=== PATIENT | male | born 1935 | race Caucasian/White ===

== ENCOUNTER 2018-10-08 00:31 | Inpatient (IN) | payer OTHER, MEDICARE ==
[2018-10-08] MEDS ORDERED: Morphine 4 MG/ML VIAL ONE (02:18)
[2018-10-08] MEDS ORDERED: Dextrose 50% Abboject 50 ML SYRINGE SLOW IVP PRN (04:17)
[2018-10-08] MEDS ORDERED: Dextrose 5% in Water 1,000 ML IV PRN (04:17)
[2018-10-08] MEDS ORDERED: traMADol HCl 50 MG TAB PO PRN (04:17)
[2018-10-08] MEDS ORDERED: Ondansetron PF 4 MG/2 ML Vial IVP PRN (04:17)
[2018-10-08] MEDS ORDERED: hydrALAZINE 20 MG/ML VIAL SLOW IVP PRN (04:17)
[2018-10-08] MEDS ORDERED: Sodium Chloride 0.9% 500 ML IV SCH (04:17)
[2018-10-08 04:22] VITALS: BMI 36.0
[2018-10-08] MEDS: Acetaminophen 500 MG TAB PO SCH ×5 (04:50→21:57)
[2018-10-08] MEDS: traMADol HCl 50 MG TAB PO PRN ×2 (04:53→13:07)
[2018-10-08] MEDS ORDERED: Acetaminophen 1,000 MG in Premix Bag 1 BAG IVPB SCH (06:00)
[2018-10-08] MEDS: Sodium Chloride 0.9% 1,000 ML IV SCH ×2 (06:14→21:50)
[2018-10-08] MEDS ORDERED: Morphine 2 MG/ML SYRINGE IVP SCH ×2 (06:30→20:30)
[2018-10-08] MEDS ORDERED: Levothyroxine Sodium 100 MCG TAB PO SCH (06:30)
[2018-10-08 07:06] LABS: #Eosinphils 0.4 thou/uL (0.0-0.7); #Lymphocytes 1.6 thou/uL (1.20-3.40); #Monocytes 1.4 thou/uL (0.11-0.59); #Neutrophils 12.8 thou/uL (1.40-6.50); %Basophils 0.3 % (0.0-1.0); %Eosinophils 2.6 % (0.0-10.0); %Lymphocytes 9.8 % (21.0-51.0); %Monocytes 8.5 % (0.0-10.0); %Neutrophils 78.9 % (42.0-75.0); Hemoglobin 12.1 g/dL (14.0-18.0); Mean Corpuscular HGB CONC 32.7 g/dL (32.0-36.0); Mean Corpuscular Hemoglobin 32.1 pg (27.0-31.0); Mean Corpuscular Volume 98.4 fL (78.0-98.0); Mean Platelet Volume 8.5 fL (7.4-10.4); Platelet Count 136 thou/uL (130-400); RBC Distribution Width 12.3 % (11.5-14.5); Red Blood Cell (RBC) Count 3.76 mill/uL (4.70-6.10); White Blood Cell (WBC) Count 16.2 thou/uL (4.8-10.8)
[2018-10-08 07:08] LABS: Phosphorus 4.9 mg/dL (2.3-4.7)
[2018-10-08 07:11] LABS: Anion Gap 16 mmol/L (10-20); BUN (Urea Nitrogen) 48 mg/dL (8.4-25.7); Calc. Creatinine Clearance 35 mL/min (70-130); Calcium 8.6 mg/dL (7.8-10.44); Carbon Dioxide 29 mmol/L (23-31); Chloride 101 mmol/L (98-107); Estimated GFR-MDRD 25; Glucose 107 mg/dL (83-110); Magnesium 2.9 mg/dL (1.6-2.6); Potassium 4.6 mmol/L (3.5-5.1); Sodium 141 mmol/L (136-145)
[2018-10-08] MEDS ORDERED: Carvedilol 6.25 MG TAB PO SCH ×2 (08:00)
[2018-10-08] MEDS: Budesonide 0.5 MG/2 ML NEB INH SCH ×2 (08:32→18:25)
[2018-10-08] MEDS: Losartan 25 MG TAB PO SCH (08:59)
[2018-10-08] MEDS ORDERED: Amlodipine 10 MG TAB PO SCH (09:00)
[2018-10-08] MEDS ORDERED: Famotidine/PF 20 mg/2ml Vial SLOW IVP SCH (09:00)
[2018-10-08] MEDS ORDERED: Losartan 25 MG TAB PO SCH (09:00)
[2018-10-08] MEDS ORDERED: Citalopram 20 MG TAB PO SCH (09:00)
[2018-10-08] MEDS ORDERED: Furosemide 20 MG TAB PO SCH (09:00)
[2018-10-08] MEDS ORDERED: hydrALAZINE 25 MG TAB PO SCH ×3 (09:00→15:00)
[2018-10-08] MEDS ORDERED: Gabapentin 100 MG CAP PO SCH (09:00)
[2018-10-08] MEDS: Senokot S 8.6-50 MG TAB PO SCH ×2 (09:01→21:50)
[2018-10-08] MEDS: Allopurinol 300 MG TAB PO SCH (09:02)
[2018-10-08] MEDS: Amlodipine 10 MG TAB PO SCH (09:02)
[2018-10-08] MEDS: Cyclobenzaprine 10 MG TAB PO SCH ×2 (09:02→21:50)
[2018-10-08] MEDS: Polyethylene Glycol 3350 17 GM Packet PO SCH (09:03)
--- NOTE | 2018-10-08 13:45 | CON ---
DATE OF CONSULTATION: 10/08/2018 CHIEF COMPLAINT: Left hip pain. CONSULTING SERVICE: Trauma. HISTORY OF PRESENT ILLNESS: Mr. Pfeiffer is an 83-year-old male status post ground level fall sustaining an injury to his left hip. The patient has difficulty ambulating. He states he is a household ambulator, lives with his . He is otherwise without complaint, resting comfortably in bed. PAST MEDICAL HISTORY: The patient's extensive past medical history includes hypertension, COPD, sleep apnea, asthma, diabetes, cholesterol, anxiety, bipolar , reflux, hypothyroidism. PAST SURGICAL HISTORY: Bilateral herniarepair is a child. ALLERGIES: CODEINE. MEDICATIONS: 1. Allopurinol. 2. . 3. Amlodipine. 4. Carvedilol. 5. Citalopram. 6. Hydroxyzine. 7. Losartan. 8. Pantoprazole. 9. Aspirin. 10. Isosorbide dinitrate. 11. Furosemide. 12. Hydralazine. 13. Methocarbamol. 14. Ropinirole. 15. Docusate. 16. Iron. 17. Synthroid. 18. Acetaminophen. SOCIAL HISTORY: He is a nonsmoker, nondrinker, nonalcoholic. Lives in [place] with his . The patient a household ambulator. He is retired. PHYSICAL EXAMINATION: VITAL SIGNS: Most recently last night were 135/63, pulse 62, respiratory rate 22, 98.7. Pain 5 to 8/10. 98 on 3 L of oxygen. GENERAL: Alert and oriented man, no acute distress, resting comfortably in bed. EXTREMITIES: Left lower extremity short and externally rotated. Pain with internal and external rotation. No skin lesions. The patient is able to flex and dorsiflex his toes. Sensation intact distally. He has good capillary refill. Resting comfortably in bed. LABORATORY DATA: The patient has an H and H of 12 and 37, white count of 16, and platelet count of 136. His chemistry shows a creatinine of 2.5 and BUN of 48. 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 IMPRESSION: Left femoral neck subtrochanteric fracture with degenerative changes, left hip. ASSESSMENT AND PLAN: I discussed with the patient that ultimately he needs surgical fixation to allow union of his subtrochanteric femur fracture followed eventually potentially by revision to a total hip arthroplasty once his subtroch is healed. I discussed his femoral neck could collapse over time, which would ultimately also lead to a total hip replacement. I discussed the risks and benefits of the surgery to include pain, scar, bleeding, infection, damage to vital structures, DVT, loss of life or limb. The patient understands. We will await clearance by Trauma to proceed with surgery either today or tomorrow. The patient understands these risks and benefits. He will contact his . Job ID: [id number] MTDD
[2018-10-08] MEDS ORDERED: Furosemide 40 MG TAB PO SCH (21:00)
[2018-10-08] MEDS ORDERED: Carvedilol 25 MG TAB PO SCH (21:00)
--- NOTE | 2018-10-08 21:32 | PRG ---
DATE OF SERVICE: 10/08/2018 SUBJECTIVE: This is an 83-year-old gentleman coming to the emergency room for evaluation of left hip pain after a fall at home. The patient sustained left femoral neck fracture. Orthopedic was consulted and the patient will be taken to OR tomorrow. The patient has been doing good. He developed no fever or shortness of breath. He reports pain is static and worse, just 1 to 2 recently. His pain is 8 to 9 with a little bit movement of his left toe. OBJECTIVE: VITAL SIGNS: Stable. : His urine is adequate. GI: He has not had bowel movements since yesterday. GENERAL: The patient is lying down in bed comfortably and talks in full sentences. LUNGS: Clear bilaterally. HEART: Regular rate and rhythm. ABDOMEN: Soft, nondistended. No rebound. EXTREMITIES: Left hip limited range of motion due to pain. Neurovascular intact x4. ASSESSMENT: 1. Status post mechanical ground level fall. 2. Left femoral neck fracture. 3. History of chronic obstructive pulmonary disease. 4. Cardiovascular disease. 5. Hypothyroid. 6. Hypertension. PLAN: We will schedule tramadol for pain control. Morphine 2 mg one time and continue. The patient will have n.p.o. at midnight. Prepare for surgery tomorrow. Job ID: [id number]
[2018-10-08] MEDS: rOPINIRole HCl 1 MG TAB PO SCH (21:49)
[2018-10-08] MEDS: hydrALAZINE 25 MG TAB PO SCH (21:49)
[2018-10-08] MEDS: Ascorbic Acid 500 mg Chewable Tablet PO SCH (21:49)
[2018-10-08] MEDS: Gabapentin 300 MG CAP PO SCH (21:49)
[2018-10-08] MEDS: traMADol HCl 50 MG TAB PO SCH (21:57)
[2018-10-08] MEDS ORDERED: Acetaminophen 500 MG TAB PO SCH (22:00)
--- NOTE | 2018-10-09 00:23 | HP ---
HISTORY OF PRESENT ILLNESS: Mr. Pfeiffer is an 83-year-old gentleman who comes into the emergency room for evaluation of left hip pain. The patient was transferred from [facility] via EMS. The patient was diagnosed with left femur fracture in [place] and transferred to this ER. Upon arrival, patient awake, alert, GCS 15. Vitals stable. Complained of pain from the left hip. The patient reports he was at home, tried to reach something on the floor and he lost his balance and fell. He denied any loss of consciousness. He did not hit his head. He report did not have any dizziness or headaches at the time. REVIEW OF SYSTEMS: Noncontributory except per HPI. PAST MEDICAL HISTORY: The patient has history of hypertension, COPD, sleep apnea, anxiety, hypothyroid. PAST SURGICAL HISTORY: Hernia repair. ALLERGIES: CODEINE. THE PATIENT REPORTS HIVES AND ITCHING GENERALIZED WHEN USING CODEINE. CURRENT MEDICATIONS: 1. Amlodipine. 2. Allopurinol. 3. Carvedilol. 4. Citalopram. 5. Losartan. 6. Pantoprazole. 7. Aspirin. 8. Nitrate. 9. Furosemide. 10. Hydralazine. 11. Methocarbamol. 12. Ropinirole. 13. Docusate. 14. Iron. 15. Synthroid. 16. Tylenol. SOCIAL HISTORY: The patient lives with his . He is mobilized independently using cane. His living function independently. He denies smoking. He denies drinking. PHYSICAL EXAMINATION: GENERAL: The patient lying down in bed, in no acute distress. GCS 15. HEENT: Atraumatic. No bruising. No open wound. Eyesight is normal. NECK: Trachea midline. CHEST: No bruising. No deformity. No tender to touch. Chest rise equal bilaterally. LUNGS: Clear bilaterally. HEART: Regular rate and rhythm. ABDOMEN: Soft, nondistended. No rebound. EXTREMITIES: No open wound. No bruising. No bleeding. NEUROLOGIC: Intact. Range of motion is limited of the left hip due to pain. NEUROLOGIC: No focal neurology deficits. DIAGNOSES: 1. Status post mechanical ground level fall. 2. Left femoral neck fracture. 3. History of hypothyroidism. 4. Hypertension. 5. Hyperlipidemia. 6. Chronic obstructive pulmonary disease. 7. Sleep apnea. 8. Depression. PLAN: The patient will be admitted to surgical floor for pain management. The patient will be seen by Orthopedics to make decision on his left hip fracture fixation. Initiate DVT gastritis prophylaxis, pulmonary toilet. The patient will have n.p.o. at midnight, prepare for surgery tomorrow. Resume all home medications except aspirin. Initiate CPAP for sleep apnea. Job ID: [id number] MTDD
[2018-10-09] MEDS: Acetaminophen 500 MG TAB PO SCH ×4 (03:38→20:42)
[2018-10-09] MEDS: traMADol HCl 50 MG TAB PO SCH ×2 (03:38→08:36)
[2018-10-09 04:54] LABS: #Basophils 0.1 thou/uL (0.0-0.2); #Eosinphils 0.8 thou/uL (0.0-0.7); #Lymphocytes 1.6 thou/uL (1.20-3.40); #Monocytes 1.3 thou/uL (0.11-0.59); %Basophils 0.4 % (0.0-1.0); %Eosinophils 5.9 % (0.0-10.0); %Lymphocytes 11.6 % (21.0-51.0); %Monocytes 9.7 % (0.0-10.0); %Neutrophils 72.4 % (42.0-75.0); Hemoglobin 10.9 g/dL (14.0-18.0); Mean Corpuscular HGB CONC 33.3 g/dL (32.0-36.0); Mean Corpuscular Hemoglobin 32.8 pg (27.0-31.0); Mean Corpuscular Volume 98.6 fL (78.0-98.0); Mean Platelet Volume 8.4 fL (7.4-10.4); Platelet Count 120 thou/uL (130-400); RBC Distribution Width 12.2 % (11.5-14.5); Red Blood Cell (RBC) Count 3.32 mill/uL (4.70-6.10); White Blood Cell (WBC) Count 13.8 thou/uL (4.8-10.8)
[2018-10-09 05:14] LABS: Phosphorus 4.6 mg/dL (2.3-4.7)
[2018-10-09 05:15] LABS: Anion Gap 15 mmol/L (10-20); BUN (Urea Nitrogen) 62 mg/dL (8.4-25.7); Calc. Creatinine Clearance 33 mL/min (70-130); Calcium 8.3 mg/dL (7.8-10.44); Carbon Dioxide 29 mmol/L (23-31); Chloride 99 mmol/L (98-107); Estimated GFR-MDRD 23; Glucose 103 mg/dL (83-110); Magnesium 2.9 mg/dL (1.6-2.6); Potassium 4.6 mmol/L (3.5-5.1); Sodium 138 mmol/L (136-145)
[2018-10-09] MEDS: Levothyroxine Sodium 100 MCG TAB PO SCH (05:20)
[2018-10-09] MEDS: Budesonide 0.5 MG/2 ML NEB INH SCH ×2 (06:15→18:15)
[2018-10-09] MEDS ORDERED: Sodium Chloride 0.9% 500 ML IV SCH (06:30)
[2018-10-09] MEDS ORDERED: Tranexamic Acid 1,000 MG/10 ML VIAL ONE (07:45)
[2018-10-09] MEDS ORDERED: Sodium Chloride 0.9% 100 ML ONE (07:46)
[2018-10-09] MEDS ORDERED: Fentanyl 100 MCG/2 ML VIAL ONE (08:18)
[2018-10-09] MEDS: Amlodipine 10 MG TAB PO SCH (08:35)
[2018-10-09] MEDS: Ascorbic Acid 500 mg Chewable Tablet PO SCH ×2 (08:35→20:41)
[2018-10-09] MEDS: Allopurinol 300 MG TAB PO SCH (08:35)
[2018-10-09] MEDS: Ferrous Sulfate 325 MG TAB PO SCH (08:35)
[2018-10-09] MEDS: Cyclobenzaprine 10 MG TAB PO SCH ×2 (08:35→20:40)
[2018-10-09] MEDS: Gabapentin 300 MG CAP PO SCH ×2 (08:36→20:38)
[2018-10-09] MEDS: Polyethylene Glycol 3350 17 GM Packet PO SCH (08:36)
[2018-10-09] MEDS: Isosorbide Mononitrate (ER) 30 MG TAB PO SCH (08:36)
[2018-10-09] MEDS: hydrALAZINE 25 MG TAB PO SCH ×3 (08:36→20:38)
[2018-10-09] MEDS: Senokot S 8.6-50 MG TAB PO SCH ×2 (08:36→20:38)
[2018-10-09] MEDS: Losartan 25 MG TAB PO SCH (08:36)
[2018-10-09] MEDS ORDERED: Amlodipine 10 MG TAB PO SCH (09:00)
[2018-10-09] MEDS ORDERED: Allopurinol 300 MG TAB PO SCH (09:00)
[2018-10-09] MEDS ORDERED: Losartan 25 MG TAB PO SCH (09:00)
[2018-10-09] MEDS ORDERED: Citalopram 20 MG TAB PO SCH (09:00)
--- NOTE | 2018-10-09 10:33 | RAD ---
FLUOROSCOPIC VIEW LEFT HIP: Seven views submitted INDICATION: Placement of hardware for fracture fixation. FINDINGS: Intertrochanteric nail placement of the segmentally visualized left femur with additional metallic sc rew placement, proximally. Detail is limited by the intraoperative imaging. IMPRESSION: Intraoperative fracture fixation imaging of the left hip/femur, transfixing patient's previously diag nosed left femoral neck fracture. Transcribed Date/Time: 10/09/2018 10:50 AM
[2018-10-09] MEDS ORDERED: Ondansetron HCl/PF 4 MG/2 ML Vial IVP PRN (11:01)
[2018-10-09] MEDS ORDERED: Promethazine HCl 25 MG/ML VIAL SLOW IVP PRN (11:01)
[2018-10-09] MEDS ORDERED: Promethazine HCl 25 MG/ML VIAL IM PRN (11:01)
[2018-10-09] MEDS ORDERED: traMADol HCl 50 MG TAB PO PRN (14:14)
[2018-10-09] MEDS: CEFAZOLIN 2 GM in Premix Bag 1 BAG IVPB SCH ×2 (14:27→21:39)
[2018-10-09] MEDS ORDERED: ePHEDrine 50 MG/ML VIAL ONE (15:07)
[2018-10-09] MEDS ORDERED: PHENYLEPHRINE-NS 100 MCG/ML 10 ML SYRINGE ONE (15:07)
[2018-10-09] MEDS ORDERED: PROPOFOL 200 MG/20 ML VIAL ONE (15:07)
[2018-10-09] MEDS ORDERED: Succinylcholine Chloride 20 MG/ML 10 ml SYRINGE FS ONE (15:07)
[2018-10-09] MEDS ORDERED: Dexamethasone 20 MG/5 ML VIAL ONE (15:07)
[2018-10-09] MEDS ORDERED: Ondansetron PF 4 MG/2 ML Vial ONE (15:07)
[2018-10-09] MEDS: HumaLOG 300 UNITS/3 ML VIAL SC PRN (16:16)
--- NOTE | 2018-10-09 16:53 | PRG ---
DATE OF SERVICE: 10/09/2018 HISTORY OF PRESENT ILLNESS: The patient is currently on the surgical floor. He is just returned from the operating room, where he underwent open reduction and internal fixation of his left hip fracture. The patient tolerated this procedure well. The patient was able to have lunch and he is tolerating this well. His pain is controlled and we have restarted all of his home medications. OBJECTIVE: VITAL SIGNS: Temperature is 98.4, heart rate 73, blood pressure 131/67, respirations 19, and oxygen saturation 93% on 2L via nasal cannula. GENERAL: The patient is resting comfortably in bed. He is awake and appropriate. He is oriented x3. HEENT: Unremarkable. LUNGS: Scattered rhonchi and scant wheezes, consistent with his chronic COPD. HEART: Regular rate and rhythm. ABDOMEN: Soft and nontender with active bowel sounds. EXTREMITIES: Neurovascularly intact x4. Postop dressing is clean, dry, and intact. LABORATORY FINDINGS: White blood cell count 13.8, hemoglobin 10.9, hematocrit 32.8, and platelets 120. Sodium 138, potassium 4.6, chloride 99, CO2 of 29, BUN 62, creatinine 2.68, and glucose 103. Magnesium 2.9. Phosphorus 4.6. Radiograph today is fluoroscopic view of the left hip shows interoperative fracture fixation, transfixing the patient's previously diagnosed left femoral neck fracture. ASSESSMENT AND PLAN: 1. Status post ground-level fall. 2. Status post open reduction and internal fixation of left femoral neck fracture. 3. [id number] kidney disease. 4. History of diabetes. 5. History of sleep apnea. Plan will be to continue supportive care, pain management, pulmonary toilet, CPAP at night. We have asked the family to obtain his lab results from the [place], which they believe they have at home, to compare his renal function. We resumed his home medications and started aspirin twice a day for chemical VTE prophylaxis. Discussing with the family regarding placement. The family would like the patient go to the swing bed in [place], which is much closer to their home. Job ID: [id number]
[2018-10-09] MEDS: traMADol HCl 50 MG TAB PO PRN (18:11)
[2018-10-09] MEDS: rOPINIRole HCl 1 MG TAB PO SCH (20:37)
[2018-10-09] MEDS: Aspirin 81 mg Enteric Coated Tablet PO SCH (20:38)
[2018-10-09] MEDS: Tamsulosin HCl 0.4 MG CAP PO SCH (20:40)
[2018-10-10] MEDS: Acetaminophen 500 MG TAB PO SCH ×4 (02:57→21:35)
[2018-10-10] MEDS: Levothyroxine Sodium 100 MCG TAB PO SCH (05:55)
[2018-10-10] MEDS: Budesonide 0.5 MG/2 ML NEB INH SCH ×2 (06:21→18:29)
[2018-10-10 07:50] LABS: Chloride 97 mmol/L (98-107); Potassium 4.5 mmol/L (3.5-5.1); Sodium 134 mmol/L (136-145)
[2018-10-10 07:51] LABS: Calcium 7.8 mg/dL (7.8-10.44); Glucose 114 mg/dL (83-110)
[2018-10-10 07:53] LABS: Carbon Dioxide 29 mmol/L (23-31)
[2018-10-10 07:55] LABS: BUN (Urea Nitrogen) 69 mg/dL (8.4-25.7); Calc. Creatinine Clearance 31 mL/min (70-130); Estimated GFR-MDRD 21; Phosphorus 4.9 mg/dL (2.3-4.7)
[2018-10-10] MEDS: hydrALAZINE 25 MG TAB PO SCH ×3 (08:22→22:27)
[2018-10-10] MEDS: Aspirin 81 mg Enteric Coated Tablet PO SCH ×2 (08:23→19:57)
[2018-10-10] MEDS: Isosorbide Mononitrate (ER) 30 MG TAB PO SCH (08:23)
[2018-10-10] MEDS: Senokot S 8.6-50 MG TAB PO SCH ×2 (08:23→19:58)
[2018-10-10] MEDS: Ascorbic Acid 500 mg Chewable Tablet PO SCH ×2 (08:23→19:58)
[2018-10-10] MEDS: Allopurinol 300 MG TAB PO SCH (08:23)
[2018-10-10] MEDS: Gabapentin 300 MG CAP PO SCH ×2 (08:23→19:58)
[2018-10-10] MEDS: Ferrous Sulfate 325 MG TAB PO SCH (08:23)
[2018-10-10] MEDS: Furosemide 40 MG TAB PO SCH (08:23)
[2018-10-10] MEDS: Losartan 25 MG TAB PO SCH (08:24)
[2018-10-10] MEDS: Amlodipine 10 MG TAB PO SCH (08:24)
[2018-10-10] MEDS: Polyethylene Glycol 3350 17 GM Packet PO SCH (08:24)
[2018-10-10] MEDS: Cyclobenzaprine 10 MG TAB PO SCH ×2 (08:24→19:58)
[2018-10-10 08:40] LABS: Anion Gap 13 mmol/L (10-20)
--- NOTE | 2018-10-10 10:14 | PRG ---
DATE OF SERVICE: 10/10/2018 SUBJECTIVE: The patient is hospital day 2 postop day 1, status post ground level fall in which he sustained a left hip fracture. He has undergone open reduction and internal fixation of same. He has tolerated that procedure well. He has had no issues overnight. Today, he is awaiting to work with therapy. He states that his pain is controlled, otherwise doing well. OBJECTIVE: VITAL SIGNS: Temperature is 98.6, heart rate 78, blood pressure 156/63, respirations 20, and oxygen saturation 92% on 2 L via nasal cannula. GENERAL: The patient is resting comfortably in bed. He is awake, alert, and oriented x3. [place] Coma Scale is 15. HEENT: Unremarkable. LUNGS: Occasional rhonchi and scant wheezing. This appears to be baseline with his COPD history. HEART: Regular rate and rhythm. ABDOMEN: Soft and nontender with active bowel sounds. EXTREMITIES: Neurovascularly intact x4. Postop dressing is clean, dry, and intact. LABORATORY DATA: Sodium 134, potassium 4.5, chloride 97, CO2 of 29, BUN 69, creatinine 2.86, glucose 114, magnesium 3.04, and phosphorus 4.9. IMAGING STUDIES: There are no radiographs reviewed this morning. ASSESSMENT AND PLAN: 1. Status post ground level fall. 2. Status post open reduction and internal fixation of left femoral neck fracture. 3. Acute on chronic kidney disease. 4. History of diabetes. 5. History of obstructive sleep apnea. PLAN: Plan will be to continue supportive care, renal diet, and diabetic diet. CPAP at night. Physical and Occupational Therapy and await final placement decision. Job ID: [id number]
[2018-10-10] MEDS: HumaLOG 300 UNITS/3 ML VIAL SC PRN (12:21)
[2018-10-10] MEDS: Tamsulosin HCl 0.4 MG CAP PO SCH (19:58)
[2018-10-10] MEDS: rOPINIRole HCl 1 MG TAB PO SCH (19:59)
--- NOTE | 2018-10-10 21:44 | PRG ---
DATE OF SERVICE: 10/09/2018 SUBJECTIVE: Mr. Pfeiffer is an 83-year-old gentleman, who comes in to evaluation of a ground level fall and left hip fracture. The patient underwent ORIF of left hip fracture, status postop day 1. The patient has a history of acute on chronic kidney disease, diabetes, sleep apnea, COPD. Postop, the patient is doing good. Pain is well controlled. He developed no fever or shortness of breath. He has not yet have a bowel and his urine is adequate. OBJECTIVE: GENERAL: The patient is lying down in bed, comfortable, in no acute distress. VITAL SIGNS: Stable. HEART: Regular rate and rhythm. LUNGS: Clear bilaterally. ABDOMEN: Soft, nondistended. Active bowel sounds. EXTREMITIES: Neurovascularly intact x4. Postop dressing is clean, dry, intact. ASSESSMENT: 1. Status post ground level fall. 2. Status post open reduction and internal fixation of left femoral neck fracture, day 1. 3. Acute on chronic kidney disease, stable. 4. History of diabetes, stable. 5. Sleep apnea is treating with CPAP at night. PLAN: Plan to continue supportive care, pain control, pulmonary toilet, CPAP at night. The patient will be working with PT/OT. Continue DVT and gastritis prophylaxis. We are awaiting for swing bed placement in [place]. Job ID: [id number]
[2018-10-11] MEDS: Acetaminophen 500 MG TAB PO SCH ×4 (03:58→20:34)
[2018-10-11] MEDS: Levothyroxine Sodium 100 MCG TAB PO SCH (06:14)
[2018-10-11] MEDS: Budesonide 0.5 MG/2 ML NEB INH SCH ×2 (07:10→18:41)
[2018-10-11] MEDS: Polyethylene Glycol 3350 17 GM Packet PO SCH (08:49)
[2018-10-11] MEDS: Losartan 25 MG TAB PO SCH (08:50)
[2018-10-11] MEDS: Gabapentin 300 MG CAP PO SCH ×2 (08:51→20:34)
[2018-10-11] MEDS: Senokot S 8.6-50 MG TAB PO SCH ×2 (08:51→20:34)
[2018-10-11] MEDS: Cyclobenzaprine 10 MG TAB PO SCH ×2 (08:51→20:34)
[2018-10-11] MEDS: hydrALAZINE 25 MG TAB PO SCH ×3 (08:51→20:35)
[2018-10-11] MEDS: Isosorbide Mononitrate (ER) 30 MG TAB PO SCH (08:51)
[2018-10-11] MEDS: Aspirin 81 mg Enteric Coated Tablet PO SCH (08:51)
[2018-10-11] MEDS: Ferrous Sulfate 325 MG TAB PO SCH (08:52)
[2018-10-11] MEDS: Ascorbic Acid 500 mg Chewable Tablet PO SCH ×2 (08:52→20:34)
[2018-10-11] MEDS: Allopurinol 300 MG TAB PO SCH (08:52)
[2018-10-11] MEDS: Amlodipine 10 MG TAB PO SCH (08:52)
--- NOTE | 2018-10-11 09:13 | HP ---
HISTORY OF PRESENT ILLNESS: This is an 83-year-old gentleman coming for evaluation of left hip pain after a fall. The patient was transferred from [facility] via EMS. The patient reports that he tried to reach something at home and stripped and fell. After a fall, he developed pain from the left hip, limited range of motion and could not bear weight. He denied loss of consciousness. He did not hit his head. He has had workup in [place] [facility], which show he had subtrochanteric proximal femur shaft fracture . Upon arrival in the ER, the patient is alert and awake. GCS 15. Vital signs stable. Blood pressure 107/82, O2 saturation 95% on 2 L oxygen, heart rate 64, and respiratory rate is 20. REVIEW OF SYSTEMS: Noncontributory except per HPI. PAST MEDICAL HISTORY: The patient have a past medical history of hypertension, CHF, asthma, sleep apnea, COPD, and depression. PAST SURGICAL HISTORY: Hernia repair. SOCIAL HISTORY: Lives at home with his . He ambulates independently using cane. Lives independently. CURRENT MEDICATIONS: 1. Furosemide 40 mg 2 times a day. 2. Ropinirole 1 mg daily. 3. Levothyroxine 137 mcg daily. 4. Pantoprazole 40 mg daily. 5. Losartan 100 mg daily. 6. Hydralazine 50 mg t.i.d. 7. Carvedilol 12.5 mg daily. 8. Allopurinol 300 daily. 9. Citalopram 40 mg daily. 10. Amlodipine 10 mg daily. 11. Methocarbamol 750 mg daily. 12. Aspirin 81 mg daily. PHYSICAL EXAMINATION: GENERAL: The patient lying down in bed, in no acute distress. The patient talks fluently in full sentences. VITAL SIGNS: Blood pressure 107/82, heart rate 64, respiratory rate 16, temperature 97, and O2 saturation 95% on 2 L oxygen. HEENT: Atraumatic. No bruising. No open wound. No deformity. NECK: Trachea midline. No bruising. CHEST: Atraumatic. No crepitus. No bruising. No deformity. No tender to touch. Chest rise equal bilaterally. LUNGS: Breath sounds clear bilaterally. HEART: Regular rate and rhythm. ABDOMEN: Soft and nondistended. No rebound. No deformity. No bruising. Bowel sounds active. EXTREMITIES: Neurovascularly intact x4. Limited range of motion from the left lower extremity due to pain. NEUROLOGY: No focal neurologic deficits. LABORATORY DATA: Initial workup; white count 12.9, hemoglobin 11.9. Sodium 140 , potassium 4.2, creatinine 2.28, and BUN 44. LFT in normal range. BNP 79.9. Urine is in normal range. DIAGNOSES: 1. Left femur neck fracture, status post mechanical ground level fall. 2. History of congestive heart failure. 3. Hypothyroid. 4. Chronic obstructive pulmonary disease. 5. Sleep apnea. 6. Hypertension. 7. Depression. PLAN: The patient will be admitted to surgical floor and started pain control. We will consult with Orthopedics early in the morning. The patient will be put on n.p.o. for right now waiting for decision from Orthopedics. Job ID: [id number] [facility]
--- NOTE | 2018-10-11 11:20 | OP ---
DATE OF PROCEDURE: 10/09/2018 PREOPERATIVE DIAGNOSES: 1. Left subtrochanteric femur fracture. 2. Left femoral neck fracture. PROCEDURES PERFORMED: 1. Intramedullary nailing, left subtrochanteric femur fracture. 2. Closed reduction and internal fixation of left femoral neck fracture. FACE HARDENER: Soren aPrker PA-C ANESTHESIOLOGIST: Dr. Chew. ANESTHESIA: The patient received a general endotracheal intubation. ESTIMATED BLOOD LOSS: 200 mL. URINE OUTPUT: 400 mL. BLOOD PRODUCTS: None. ANTIBIOTICS: The patient received Ancef 2 g and TXA 1 g. IMPLANTS: Synthes 11 x 360 mm left TFNA Synthes nail, a 95 mm compression screw and a 5 mm locking screw and a 6.5 x 90 mm cannulated screw. COMPLICATIONS: None. HISTORY OF PRESENT ILLNESS: Mr. Pfeiffer is an 83-year-old male status post ground level fall. The patient has a significant past medical history. He is a household ambulator. His past medical history includes diabetes, hypertension, asthma, sleep apnea, COPD, and anxiety. The patient is a household ambulator, does not walk. States he has not walked out of the house. The patient had a ground level fall and sustained this left femoral neck fracture. I discussed with him the risks and benefits of the surgery to include pain, scar, bleeding, infection, damage to vital structures, decreased range of motion or strength, failure of fixation, loss of life or limb, need for further surgeries to include total hip arthroplasty. I discussed the risks and benefits, the patient understands and elected to proceed. DESCRIPTION OF PROCEDURE: Time-out was performed designating the patient's left lower extremity as the operative site based on site, consents, and marking. After time-out, the patient's left lower extremity was prepped and draped in the sterile fashion. He was placed on the traction table. The patient's size was morbid obesity may as well as the short stature made it technically challenging both the subtroch as well as positioning. He was rolled to the right on the table as well as ER and adducted as desired. After we positioned him, we prepped and draped his left lower extremity. We reduced the fracture pretty well. On x-ray , the neck was secondarily unstable with traction. We placed the incision down over the trochanter, came down on to use an awn to get our starting point within the trochanter, passed our guidewire, reamed and then passed a long ball-tipped guidewire down with the shaft. We ensured it was on AP and lateral radiographs to ensure it was within the femur, came back sequentially measured and put a 360 mm nail in. We reamed to a 12.5 and placed an 11-mm nail reducing the subtroch into position. After completion of this, with our arm we used the outrigger to center-center our pin within the center of the head. For placing the pin, we had to reduce the neck using traction and positioning of our leg to help with the valgus position of the neck. We then placed two derotational screws through the outrigger to hold the neck into place. We then placed our center-center screw. We put our center-center screw within the head for a good tip to apex distance on AP and lateral radiographs, which positioned within the neck as well as within the head. The posterior derotational pin was still within the bone, the anterior one was slightly anterior. We removed our guide, measured, placed for 95. We overdrilled. We tapped and placed a 95 mm lag screw. We then removed our jig leaving our two derotational screws in position. We overdrilled and placed 6.5 derotational screw in our femoral neck to help to maintain the rotation of the femoral neck posteriorly. Anteriorly, we did not feel even with reposition of the pin that we had sufficient room for another 6.5 screw because of the trajectory of the center-center screw. Therefore, we elected not to put a second or third pin in. The patient had overall good stable fixation. We removed our pin, removed distally, made a stab incision, came down , drilled and filled within the variable into the compression hole center-center position for a 5.0 distal locking screw. We washed, we closed in layers with 0 and 2-0 and brayden. The patient will be admitted back to Trauma, will be touchdown weightbearing. The patient's outcome was guarded. I am concerned about his femoral neck fracture and the patient's ambulatory status as well as multiple medical problems. He will be followed in-house by Trauma. May require Renal given the patient's current creatinine. Job ID: [id number] [facility]
[2018-10-11] MEDS: Furosemide 40 MG TAB PO SCH ×2 (11:28→14:59)
[2018-10-11 11:52] LABS: #Eosinphils 0.7 thou/uL (0.0-0.7); #Monocytes 1.4 thou/uL (0.11-0.59); #Neutrophils 7.9 thou/uL (1.40-6.50); %Basophils 0.4 % (0.0-1.0); %Eosinophils 6.7 % (0.0-10.0); %Lymphocytes 8.7 % (21.0-51.0); %Monocytes 12.5 % (0.0-10.0); %Neutrophils 71.6 % (42.0-75.0); Hemoglobin 8.5 g/dL (14.0-18.0); Mean Corpuscular HGB CONC 33.2 g/dL (32.0-36.0); Mean Corpuscular Hemoglobin 32.4 pg (27.0-31.0); Mean Corpuscular Volume 97.7 fL (78.0-98.0); Mean Platelet Volume 8.2 fL (7.4-10.4); Platelet Count 108 thou/uL (130-400); RBC Distribution Width 11.8 % (11.5-14.5); Red Blood Cell (RBC) Count 2.61 mill/uL (4.70-6.10); White Blood Cell (WBC) Count 11.1 thou/uL (4.8-10.8)
[2018-10-11 12:09] LABS: Anion Gap 15 mmol/L (10-20); BUN (Urea Nitrogen) 80 mg/dL (8.4-25.7); Calc. Creatinine Clearance 29 mL/min (70-130); Calcium 7.9 mg/dL (7.8-10.44); Carbon Dioxide 28 mmol/L (23-31); Chloride 93 mmol/L (98-107); Estimated GFR-MDRD 20; Glucose 124 mg/dL (83-110); Phosphorus 4.6 mg/dL (2.3-4.7); Potassium 4.7 mmol/L (3.5-5.1); Sodium 131 mmol/L (136-145)
[2018-10-11] MEDS ORDERED: Sodium Chloride 0.9% 500 ML IV SCH (15:00)
[2018-10-11] MEDS: Heparin 5,000 UNITS/ML VIAL SC SCH ×2 (15:13→20:34)
--- NOTE | 2018-10-11 15:29 | PRG ---
DATE OF SERVICE: 10/11/2018 SUBJECTIVE: The patient remains on the surgical floor. He is status post a left hip fracture. He is postop day #2, status post open reduction and internal fixation of the same. He tolerated the procedure well. He has had no issues overnight. He does continue to have increasing creatinine. We are going to hold his Lasix and discontinue his aspirin at this time. The patient is tolerating a diet and he is working with Physical and Occupational Therapy. The patient is tolerating his CPAP for his [place] at night also. OBJECTIVE: VITAL SIGNS: Temperature 98.5, heart rate 81, blood pressure 138/70, respirations 16, oxygen saturation 92% on 2 L via nasal cannula. GENERAL: The patient is resting comfortably in bed. He is awake, alert, and oriented. HEENT: Unremarkable. LUNGS: Again shows scattered rhonchi and scant wheezing. HEART: Regular rate and rhythm. ABDOMEN: Soft, flat, nontender with active bowel sounds. EXTREMITIES: Neurovascularly intact x4. LABORATORY FINDINGS: White blood cell count 11.1, hemoglobin 8.5, hematocrit 25.5, platelets 108. Sodium of 131, potassium 4.7, chloride 93, CO2 of 28, BUN 80, creatinine 2.99, glucose 124, magnesium 3.0, and phosphorus 4.6. IMAGING STUDIES: There are no radiographs reviewed this morning. ASSESSMENT/PLAN: 1. Status post ground level fall. 2. Status post open reduction and internal fixation of left femoral neck fracture. 3. Acute on chronic kidney disease. 4. History of diabetes. 5. History of obstructive sleep apnea. PLAN: Will be to continue supportive care. Again, hold his Lasix. Discontinue NSAID. Encourage physical and occupational therapy and await final placement decision. The patient was evaluated with Dr. Monson this morning during rounds. In addition, we will ask Respiratory Therapy to issue and instruct the patient on Acapella use. Job ID: [id number]
[2018-10-11] MEDS: Tamsulosin HCl 0.4 MG CAP PO SCH (20:34)
[2018-10-11] MEDS: rOPINIRole HCl 1 MG TAB PO SCH (20:34)
[2018-10-11] MEDS ORDERED: Sodium Chloride 0.9% 1,000 ML IV SCH (20:45)
--- NOTE | 2018-10-11 22:00 | PRG ---
DATE OF SERVICE: 10/11/2018 SUBJECTIVE: Mr. Pfeiffer is 83-year-old gentleman status post mechanical ground level fall. He has sustained left hip fracture. The patient underwent ORIF of left hip fracture, status post day #2. The patient also has a history of acute on chronic kidney disease, diabetes, sleep apnea, COPD. Postoperative, the patient has been doing good with regard to pain control. vital sign has been stable. His kidney function is still getting worse. Aspirin was discontinued today. Continue fluid and follow up with the kidney function. OBJECTIVE: GENERAL: The patient lying down in bed, comfortable with no acute distress. VITAL SIGNS: Stable. HEART: Regular rate and rhythm. ABDOMEN: Soft, nondistended. EXTREMITIES: Neurovascularly intact x4. Postoperative dressing clean, dry, and intact. ASSESSMENT: 1. Status post ground level fall. 2. Status post open reduction internal fixation of left femoral neck fracture, day #2. 3. Acute on chronic kidney disease. 4. History of diabetes, sleep apnea, and chronic obstructive pulmonary disease. PLAN: Continue supportive care. Continue pain control. Pulmonary toilet, CPAP at night. The patient is working with PT/OT. Continue DVT and gastritis prophylaxis. Awaiting for kidney function to improve and the patient will be placed in swing bed facility. Job ID: [id number] [facility]
[2018-10-12] MEDS: Acetaminophen 500 MG TAB PO SCH ×3 (02:19→16:09)
[2018-10-12] MEDS: Levothyroxine Sodium 100 MCG TAB PO SCH (05:39)
[2018-10-12 05:59] LABS: #Eosinphils 0.7 thou/uL (0.0-0.7); #Lymphocytes 0.9 thou/uL (1.20-3.40); #Monocytes 1.3 thou/uL (0.11-0.59); %Basophils 0.3 % (0.0-1.0); %Eosinophils 6.8 % (0.0-10.0); %Lymphocytes 9.2 % (21.0-51.0); %Monocytes 12.9 % (0.0-10.0); %Neutrophils 70.8 % (42.0-75.0); Hemoglobin 7.8 g/dL (14.0-18.0); Mean Corpuscular HGB CONC 33.3 g/dL (32.0-36.0); Mean Corpuscular Hemoglobin 32.6 pg (27.0-31.0); Mean Corpuscular Volume 97.8 fL (78.0-98.0); Mean Platelet Volume 8.5 fL (7.4-10.4); Platelet Count 114 thou/uL (130-400); RBC Distribution Width 11.9 % (11.5-14.5); Red Blood Cell (RBC) Count 2.39 mill/uL (4.70-6.10); White Blood Cell (WBC) Count 9.9 thou/uL (4.8-10.8)
[2018-10-12 06:23] LABS: Anion Gap 14 mmol/L (10-20); BUN (Urea Nitrogen) 84 mg/dL (8.4-25.7); Calc. Creatinine Clearance 33 mL/min (70-130); Calcium 7.8 mg/dL (7.8-10.44); Carbon Dioxide 26 mmol/L (23-31); Chloride 95 mmol/L (98-107); Estimated GFR-MDRD 23; Glucose 115 mg/dL (83-110); Magnesium 3.2 mg/dL (1.6-2.6); Phosphorus 4.2 mg/dL (2.3-4.7); Sodium 130 mmol/L (136-145)
[2018-10-12] MEDS: Budesonide 0.5 MG/2 ML NEB INH SCH ×2 (07:22→18:37)
--- NOTE | 2018-10-12 08:20 | CON ---
DATE OF CONSULTATION: HISTORY OF PRESENT ILLNESS: Mr. Pfeiffer is a pleasant 83-year-old male, status post intramedullary nailing and closed reduction and percutaneous pinning of a femoral neck fracture, subtrochanteric femur fracture combination. The patient was difficult to arouse this morning and at bedside, the CPAP is off, but he had been seen previously on nursing rounds and is undergoing a treatment. The patient was responding to questions, but slightly confused. PHYSICAL EXAMINATION: VITAL SIGNS: Temperature 97.7, pulse 79, respiratory rate 16, and blood pressure 136/66. GENERAL: Alert and oriented, in no acute distress, resting comfortably in bed. EXTREMITIES: Left lower extremity neurovascular intact, clean, dry, and intact. LABORATORY DATA: H and H of 7.8 and 23.4. ASSESSMENT AND PLAN: The patient will weight bear as tolerated. Deep venous thrombosis prophylaxis per Trauma. The patient will need transfer to residential. Postprocedure, the H and H have dropped and will need to be monitored for possible transfusion and secondary sources of bleeding from his hip should have subsided at this point. Job ID: [id number]
[2018-10-12] MEDS: Polyethylene Glycol 3350 17 GM Packet PO SCH (08:33)
[2018-10-12] MEDS: Losartan 25 MG TAB PO SCH (08:33)
[2018-10-12] MEDS: Isosorbide Mononitrate (ER) 30 MG TAB PO SCH (08:33)
[2018-10-12] MEDS: Ferrous Sulfate 325 MG TAB PO SCH (08:34)
[2018-10-12] MEDS: hydrALAZINE 25 MG TAB PO SCH ×3 (08:34→22:16)
[2018-10-12] MEDS: Ascorbic Acid 500 mg Chewable Tablet PO SCH ×2 (08:34→22:15)
[2018-10-12] MEDS: Senokot S 8.6-50 MG TAB PO SCH ×2 (08:34→22:17)
[2018-10-12] MEDS: Allopurinol 300 MG TAB PO SCH (08:34)
[2018-10-12] MEDS: Cyclobenzaprine 10 MG TAB PO SCH ×2 (08:35→22:16)
[2018-10-12] MEDS: Gabapentin 300 MG CAP PO SCH ×2 (08:35→22:16)
[2018-10-12] MEDS: Heparin 5,000 UNITS/ML VIAL SC SCH ×3 (08:35→22:16)
[2018-10-12] MEDS: Amlodipine 10 MG TAB PO SCH (08:35)
--- NOTE | 2018-10-12 09:58 | RAD ---
RADIOGRAPH CHEST 1 VIEW: Date: 10/11/2018 Time: 8:57 a.m. HISTORY: An 83-year-old male with dyspnea. Evaluate for congestive heart failure. COMPARISON: 10/05/2013 FINDINGS: Inspiration is shallower on the current study compared to the previous. This may be responsible for the diffusely mildly increased attenuation of bilateral lung luna. There is cardiomegaly, similar to the prior study. No pneumothorax. No obvious consolidation. IMPRESSION: 1. Limited study because of hypoinflated lungs. 2. Cardiomegaly. ELIANA [] POS: [facility]
--- NOTE | 2018-10-12 10:59 | RAD ---
PORTABLE CHEST ONE VIEW: 10/12/2018 10:17 a.m. HISTORY: Aspiration. Choking. Code. COMPARISON: Exam done at 8:57 a.m. on the same day. FINDINGS: No significant interval change is seen. POS: OFF
[2018-10-12] MEDS ORDERED: Sodium Chloride 0.9% 500 ML IV SCH (11:00)
[2018-10-12 11:08] LABS: Actual Bicarbonate (HCO3a) 25.4 mEq/L (22-28); Base Excess (BEa) -0.1 mEq/L (-2.0 to +3.0); CO2 Tension 45.2 mmHg (35.0-45.0); Calcium, Ionized 1.07 mmol/L (1.12-1.30); Carboxyhemoglobin (COHb) 1.8 gm% (0.0-3.0); Hemoglobin (Hb) 8.7 g/dL (14.0-18.0); Potassium - ABG Lab 4.53 mmol/L (3.70-5.30); pH, Arterial 7.37 (7.35-7.45)
[2018-10-12 11:11] LABS: Puncture Site RRA
[2018-10-12] MEDS: Sodium Chloride 0.9% 1,000 ML IV SCH ×2 (11:25→21:30)
--- NOTE | 2018-10-12 16:06 | PQF ---
CLINICAL DOCUMENTATION IMPROVEMENT CLARIFICATION FORM: ICD-10 Updated PLEASE DO AN ADDENDUM TO THE PROGRESS NOTE WITH ANY DOCUMENTATION UPDATES OR ADDITIONS AND CARRY THROUGH TO DC SUMMARY. THANK YOU. DATE: 10/12/2018; 10/13/2018 ATTN: Ovidio Phillips PA-C; Luz Marina TAVAREZ [facility]- Please exercise your independent, professional judgment in responding to the clarification form. Clinical indicators are provided on the bottom of this form for your review Please check appropriate box(s): [ ] Acute Renal Failure (ARF) / Acute Kidney Injury (ISABELLA) [ ] Acute on Chronic Renal Failure please specify Stage of CKD (see below) [ ] CKD without ARF/ISABELLA please specify Stage of CKD [ ] Other diagnosis [ ] Unable to determine In addition, please specify: Present on Admission (POA): [ ] Yes [ ] No [ ] Unable to determine For continuity of documentation, please document condition throughout progress notes and discharge summary. Thank You. CLINICAL INDICATORS - SIGNS / SYMPTOMS / LABS PN 10/09: creatinine 2.68 Rydph-fx-ricwytz kidney disease. PN 10/11: He does continue to have increasing creatinine. creatinine 2.99 10/08 10/09 10/11 LABS: Estimated GFR RISKS: 10/08(Brazeal) Hx HTN, diabetes. PN 10/09: S/p open reduction and internal fixation of left femoral neck fx. TREATMENT: Order for NS 500ml IV bolus on 10/08, 10/09, and 10/11, 10/12 PN 10/11: We are going to hold his lasix and dc his aspirin National Kidney Foundation Guidelines for CKD Staging Stage I Kidney damage with normal or increased GFR GFR > 90 Stage II Kidney damage with mildly decreased GFR GFR 60-89 Stage III Kidney damage with moderately decreased GFR GFR 30-59 Stage IV Kidney damage with severely decreased GFR GFR 16-29 Stage V Kidney failure GFR < 15 ESRD End Stage Renal Disease On dialysis Acute Renal Failure/Acute Kidney Failure defined as: Increases in SCr by (>) 0.3 mg/dl within 48 hours OR- Increases in SCr by (>) 1.5 times baseline, known or presumed to have occurred within the prior 7 days OR- Urine volume < 0.5 ml/kg/hour for 6 hours (KDIGO supplement 2012 for RIFLE/ENDER criteria) Thank you, Robyn (This form is maintained as a part of the permanent medical record) 2014 [employer] All Rights Reserved Robyn Montalvo RN, BSN juan [email or web address] Office: [phone] [facility] CENTERRomeo
[2018-10-12] MEDS: Acetaminophen 1,000 MG in Premix Bag 1 BAG IVPB SCH ×2 (17:33→23:40)
--- NOTE | 2018-10-12 18:27 | PRG ---
DATE OF SERVICE: 10/12/2018 SUBJECTIVE: This is an 83-year-old gentleman, who is postop day #3 open reduction and internal fixation left femoral neck fracture. It was reported that the patient did not have used CPAP last night and seemed less alert. CPAP was applied to the patient early this morning with improvement in alertness. Shortly after morning rounds, the patient received his morning medications and choked on the pills. Nurse reports that she did have to do abdominal thrust on the patient. The patient had a Code Green called and Trauma Team arrived back to the bedside. The patient had low SpO2 and continuous coughing. Neb treatments were given and a chest x-ray was obtained. The patient was then moved to the [facility] for closer monitoring. The patient continued to have cough and it was reported that the patient coughed up a blood clot. OBJECTIVE: VITAL SIGNS: Pulse 69, respirations 21, SpO2 of 93% on nasal cannula, blood pressure 134/64. GENERAL: The patient is awake, alert, lying in hospital bed with CPAP in place. The patient able to tolerate a CPAP at this time. HEENT: Mucous membranes are dry. LUNGS: Clear with no wheezing, rales, or rhonchi. HEART: Regular rate and regular rhythm. ABDOMEN: Soft, nontender, nondistended. EXTREMITIES: Neurovascularly intact x4. No pedal edema. LABORATORY DATA: Sodium 130, potassium 5.0, chloride 95, carbon dioxide 26, anion gap 14, BUN 84, creatinine 2.68, estimated GFR 23, glucose 115, calcium 7.8, phosphorus 4.2, magnesium 3.2, BNP 346.5. WBC 9.9, RBC 2.39, hemoglobin 7.8, hematocrit 23.4. Arterial blood gas after choking spell, pH 7.37, pCO2 of 45.2, PO2 of 87, bicarb 25.4, ionized calcium 1.07. DIAGNOSTICS STUDIES: Chest x-ray, no significant interval changes seen. This was post choking x-ray. Previous x-ray this morning, impression; limited study due to hypoinflated lungs, cardiomegaly. IMPRESSION: 1. Status post ground level fall. 2. Postop day #3 open reduction and internal fixation of left femoral neck fracture. 3. Acute on chronic kidney disease stage 4. 4. History of diabetes. 5. History of obstructive sleep apnea. 6. Aspiration, status post choking. 7. Hyponatremia. PLAN: Continue supportive care. Move the patient to IMCU for closer observation. Continue to hold the patient's Lasix. Continue to hydrate the patient. Continue CPAP. Respiratory therapy for pulmonary toilet. Encourage the use of incentive spirometer. Nebs treatment as needed. Continue bowel regimen as the patient has not had a bowel movement. The patient was evaluated by Dr. Monson during morning rounds. Job ID: [id number]
[2018-10-12] MEDS: Morphine 4 MG/ML VIAL SLOW IVP PRN (20:23)
[2018-10-12] MEDS: rOPINIRole HCl 1 MG TAB PO SCH (22:17)
[2018-10-12] MEDS: Tamsulosin HCl 0.4 MG CAP PO SCH (22:18)
--- NOTE | 2018-10-12 22:30 | PRG ---
DATE OF SERVICE: 10/12/2018 SUBJECTIVE: The patient was seen today during the evening rounds. He was breathing comfortably on 4 L nasal cannula. At the time of my evaluation, the patient reported that he had no complaints. He had recently received IV morphine for some back pain. He denied chest pain or shortness of breath. Previously had a cough, which has resolved. Earlier in the day, the patient had a code green incident when he choked on his medications. He does have a history of COPD and sleep apnea. He was transferred to the [facility] and is now on nasal cannula oxygen. He is to wear his home CPAP device at night. He did have a 1 time temperature of a 100.8 that resolved with IV Tylenol. He is not tachycardic and he had a normal white count earlier this morning. OBJECTIVE: VITAL SIGNS: The patient had a one time temperature of earlier today, which is resolved. He is otherwise hemodynamically stable and saturating 92% on 4 L nasal cannula. GENERAL: Elderly male, sitting up in bed with no signs of acute distress. PULMONARY: Equal chest rise and fall. Diminished breath sounds bilaterally. No wheezing or crackling noted. No signs of acute respiratory distress. CARDIAC: Regular rate and rhythm. No murmurs, gallops, or rubs. GI: Abdomen is soft, nontender, and nondistended. EXTREMITIES: 2+ pulses in all extremities. No significant swelling noted. Gross motor and sensation are intact. NEUROLOGIC: GCS is 15. ASSESSMENT: 1. Status post ground level fall. 2. Comminuted left femoral neck fracture, status post repair. 3. Acute on chronic kidney disease. 4. History of chronic obstructive pulmonary disease, sleep apnea, hypertension, congestive heart failure, asthma, and depression. PLAN: Continue current diet and pain regimen. The patient is currently n.p.o. at this time. Awaiting evaluation by speech language pathology tomorrow. We will continue IV medications as needed. The patient to wear his home CPAP machine at night. Continue to monitor for signs of infection. We will panculture if the patient has another temperature spike. Job ID: [id number]
[2018-10-13] MEDS: Morphine 4 MG/ML VIAL SLOW IVP PRN ×2 (01:40→13:34)
[2018-10-13 05:18] LABS: #Eosinphils 0.4 thou/uL (0.0-0.7); #Lymphocytes 1.2 thou/uL (1.20-3.40); #Monocytes 1.5 thou/uL (0.11-0.59); #Neutrophils 7.7 thou/uL (1.40-6.50); %Basophils 0.4 % (0.0-1.0); %Eosinophils 3.9 % (0.0-10.0); %Lymphocytes 11.3 % (21.0-51.0); %Neutrophils 70.4 % (42.0-75.0); Hemoglobin 7.7 g/dL (14.0-18.0); Mean Corpuscular HGB CONC 33.4 g/dL (32.0-36.0); Mean Corpuscular Hemoglobin 32.5 pg (27.0-31.0); Mean Corpuscular Volume 97.2 fL (78.0-98.0); Mean Platelet Volume 8.2 fL (7.4-10.4); Platelet Count 130 thou/uL (130-400); RBC Distribution Width 12.2 % (11.5-14.5); Red Blood Cell (RBC) Count 2.38 mill/uL (4.70-6.10); White Blood Cell (WBC) Count 10.9 thou/uL (4.8-10.8)
[2018-10-13 05:38] LABS: Anion Gap 13 mmol/L (10-20); BUN (Urea Nitrogen) 84 mg/dL (8.4-25.7); Calc. Creatinine Clearance 48 mL/min (70-130); Calcium 7.9 mg/dL (7.8-10.44); Carbon Dioxide 24 mmol/L (23-31); Chloride 101 mmol/L (98-107); Estimated GFR-MDRD 27; Glucose 100 mg/dL (83-110); Phosphorus 3.5 mg/dL (2.3-4.7); Potassium 4.6 mmol/L (3.5-5.1); Sodium 133 mmol/L (136-145)
[2018-10-13] MEDS: Acetaminophen 1,000 MG in Premix Bag 1 BAG IVPB SCH ×2 (05:38→11:50)
[2018-10-13] MEDS: Budesonide 0.5 MG/2 ML NEB INH SCH ×2 (06:52→18:04)
[2018-10-13] MEDS ORDERED: Ferrous Sulfate 325 MG TAB PO SCH (09:30)
[2018-10-13] MEDS: Losartan 25 MG TAB PO SCH (10:02)
[2018-10-13] MEDS: Gabapentin 300 MG CAP PO SCH ×2 (10:02→21:09)
[2018-10-13] MEDS: Amlodipine 10 MG TAB PO SCH (10:03)
[2018-10-13] MEDS: hydrALAZINE 25 MG TAB PO SCH ×3 (10:03→21:09)
[2018-10-13] MEDS: Isosorbide Mononitrate (ER) 30 MG TAB PO SCH (10:03)
[2018-10-13] MEDS: Cyclobenzaprine 10 MG TAB PO SCH ×2 (10:03→21:10)
[2018-10-13] MEDS: Allopurinol 300 MG TAB PO SCH (10:08)
[2018-10-13] MEDS: Ascorbic Acid 500 mg Chewable Tablet PO SCH ×2 (10:08→21:09)
[2018-10-13] MEDS: Senokot S 8.6-50 MG TAB PO SCH ×2 (10:15→21:10)
[2018-10-13] MEDS: Polyethylene Glycol 3350 17 GM Packet PO SCH (10:17)
[2018-10-13] MEDS: Heparin 5,000 UNITS/ML VIAL SC SCH ×3 (10:21→21:38)
[2018-10-13] MEDS: Bisacodyl 10 MG SUPP PR SCH (10:24)
[2018-10-13] MEDS: Levothyroxine Sodium 100 MCG TAB PO SCH (10:25)
[2018-10-13] MEDS: Ferrous Sulfate 325 MG TAB PO SCH ×2 (13:05→16:14)
[2018-10-13] MEDS: Sodium Chloride 0.9% 1,000 ML IV SCH (13:36)
--- NOTE | 2018-10-13 15:47 | PRG ---
DATE OF SERVICE: 10/13/2018 SUBJECTIVE: Mr. Pfeiffer is an 83-year-old man, who is post injury day #5, status post ground level fall with left hip fracture. The patient is postoperative day #4 status post intramedullary nailing of left subtrochanteric femur fracture. He was placed in intermediate care unit yesterday with acute respiratory distress following aspiration of a pill. Today, the patient denies any dyspnea. He is awake and alert. Denies any chest pain or syncope. OBJECTIVE: VITAL SIGNS: Today include blood pressure 124/60, pulse is 82, respiratory rate is 20, temperature 98.1 degrees Fahrenheit, oxygen saturation is 96% on 4 L by nasal cannula oxygen. HEART: Reveals regular rate and rhythm. No murmurs or gallops auscultated. LUNGS: Reveals right basilar rhonchi. Breathing regular and nonlabored. ABDOMEN: Soft and obese with no tenderness to palpation. EXTREMITIES: Reveal 2+ radial and pedal pulses bilaterally. No ankle edema is present. NEUROLOGIC: Reveals no focal deficits present. LABORATORY FINDINGS: Include CBC with 10,900 white blood cells, hemoglobin and hematocrit are 7.7 and 23.2 respectively. Platelet count is 130,000. The patient became acutely hypotensive with blood pressure noted at 84/45 when he was stood out of bed. He became immediately near syncopal. Laboratory findings today include metabolic profile; sodium 133, potassium 4.6, chloride is 101, bicarb is 24, BUN 84, creatinine is 2.31, glucose 100, magnesium 3.0, phosphorus is 3.5. IMPRESSIONS: 1. Postoperative day #4 status post IM nailing of subtrochanteric left femur fracture. 2. Acute blood loss anemia, symptomatic. 3. Resolving acute kidney injury. 4. Stable acute hyponatremia. PLAN: 1. We will transfuse the patient with 1 unit of packed red blood cells. 2. Continue to increase activity per Physical and Occupational therapy. 3. Ask PM and R to evaluate the patient for possible transfer to inpatient rehabilitation post discharge. Job ID: [id number]
[2018-10-13] MEDS: traMADol HCl 50 MG TAB PO PRN (16:06)
[2018-10-13] MEDS: Pantoprazole 40 MG VIAL IVP SCH (16:15)
[2018-10-13] MEDS: Tamsulosin HCl 0.4 MG CAP PO SCH (21:09)
[2018-10-13] MEDS: rOPINIRole HCl 1 MG TAB PO SCH (21:10)
--- NOTE | 2018-10-14 01:12 | PRG ---
DATE OF SERVICE: 10/13/2018 SUBJECTIVE: The patient was seen today during evening rounds in the IMCU. He was hemodynamically stable and breathing comfortably at the time of my evaluation. He was tolerating a mechanical soft diabetic renal diet. No signs of aspirations. He has had no acute decline in his oxygen saturations throughout the day. He did receive 1 unit of packed red blood cells today for symptomatic anemia. IV fluids have been discontinued. OBJECTIVE: VITAL SIGNS: The patient is afebrile, hemodynamically stable. He is saturating 96% on 4 L nasal cannula. GENERAL: Elderly male, sitting up in bed with no signs of acute distress. PULMONARY: Equal chest rise and fall. Clear breath sounds bilaterally, but diminished at the bases. No signs of acute respiratory distress. CARDIAC: Regular rate and rhythm. No murmurs, gallops, or rubs. GI: Abdomen is soft, nontender, and nondistended. EXTREMITIES: 2+ pulses in all extremities. Minimal swelling to bilateral lower extremities. Gross motor and sensation are intact. NEUROLOGIC: GCS is 15. ASSESSMENT: 1. Status post mechanical fall. 2. Left femoral neck fracture, status post repair. 3. Acute kidney injury, improving. 4. Hyponatremia, improving. 5. History of chronic kidney disease, hypertension, congestive heart failure, sleep apnea, asthma, chronic obstructive pulmonary disease, and depression. PLAN: Continue current diet and pain regimen. Discontinue IV fluids. Continue work with Physical and Occupational Therapy. Continue CPAP at night. The patient will try to get up tomorrow out of bed with Physical Therapy. He is pending placement at acute rehab at this time. Job ID: [id number]
[2018-10-14 05:35] LABS: #Eosinphils 0.7 thou/uL (0.0-0.7); #Lymphocytes 1.2 thou/uL (1.20-3.40); #Monocytes 1.7 thou/uL (0.11-0.59); #Neutrophils 9.3 thou/uL (1.40-6.50); %Basophils 0.3 % (0.0-1.0); %Eosinophils 5.8 % (0.0-10.0); %Lymphocytes 9.3 % (21.0-51.0); %Monocytes 12.9 % (0.0-10.0); %Neutrophils 71.8 % (42.0-75.0); Hemoglobin 8.5 g/dL (14.0-18.0); Mean Corpuscular HGB CONC 32.6 g/dL (32.0-36.0); Mean Corpuscular Hemoglobin 31.6 pg (27.0-31.0); Mean Corpuscular Volume 96.9 fL (78.0-98.0); Mean Platelet Volume 7.9 fL (7.4-10.4); Platelet Count 160 thou/uL (130-400); RBC Distribution Width 13.6 % (11.5-14.5)
[2018-10-14 05:56] LABS: Anion Gap 13 mmol/L (10-20); BUN (Urea Nitrogen) 81 mg/dL (8.4-25.7); Calc. Creatinine Clearance 53 mL/min (70-130); Calcium 8.3 mg/dL (7.8-10.44); Carbon Dioxide 23 mmol/L (23-31); Chloride 102 mmol/L (98-107); Estimated GFR-MDRD 30; Glucose 110 mg/dL (83-110); Magnesium 3.3 mg/dL (1.6-2.6); Phosphorus 3.5 mg/dL (2.3-4.7); Potassium 4.7 mmol/L (3.5-5.1); Sodium 133 mmol/L (136-145)
[2018-10-14] MEDS: Levothyroxine Sodium 100 MCG TAB PO SCH (06:22)
[2018-10-14] MEDS: Budesonide 0.5 MG/2 ML NEB INH SCH ×2 (07:08→18:12)
[2018-10-14] MEDS ORDERED: Furosemide 40 MG/4 ML VIAL SLOW IVP SCH (09:15)
[2018-10-14] MEDS: Allopurinol 300 MG TAB PO SCH (10:07)
[2018-10-14] MEDS: Losartan 25 MG TAB PO SCH (10:08)
[2018-10-14] MEDS: Cyclobenzaprine 10 MG TAB PO SCH ×2 (10:09→20:19)
[2018-10-14] MEDS: Ascorbic Acid 500 mg Chewable Tablet PO SCH ×2 (10:09→20:19)
[2018-10-14] MEDS: Amlodipine 10 MG TAB PO SCH (10:09)
[2018-10-14] MEDS: Isosorbide Mononitrate (ER) 30 MG TAB PO SCH (10:10)
[2018-10-14] MEDS: Bisacodyl 10 MG SUPP PR SCH (10:10)
[2018-10-14] MEDS: Ferrous Sulfate 325 MG TAB PO SCH ×2 (10:12→16:57)
[2018-10-14] MEDS: hydrALAZINE 25 MG TAB PO SCH ×3 (10:13→20:20)
[2018-10-14] MEDS: Polyethylene Glycol 3350 17 GM Packet PO SCH (10:14)
[2018-10-14] MEDS: Senokot S 8.6-50 MG TAB PO SCH ×2 (10:14→20:20)
[2018-10-14] MEDS: Gabapentin 300 MG CAP PO SCH ×2 (10:14→20:19)
[2018-10-14] MEDS: Heparin 5,000 UNITS/ML VIAL SC SCH ×3 (10:22→20:19)
--- NOTE | 2018-10-14 14:12 | PRG ---
DATE OF SERVICE: 10/14/2018 83-year-old male, status post mechanical fall and left femoral neck fracture, postop day #5 from hip repair. SUBJECTIVE: The patient was sleeping this morning with his oxygen face mask on. He had not yet eaten breakfast. Overall, he states his pain is well controlled. He received 1 unit of packed red blood cells yesterday for symptomatic anemia. He denies any needs or concerns at this time. OBJECTIVE: VITAL SIGNS: Temperature 99, blood pressure 147/64, saturating at 92% on 4 L of nasal cannula, and respirations 40. GENERAL: Well appearing, in bed. RESPIRATORY: No acute respiratory distress. CARDIAC: Well perfused. Regular rate and rhythm. No murmur. ABDOMEN: Obese. EXTREMITIES: Well perfused. LABORATORY DATA: Hemoglobin 8.5, increased from 7.7; hematocrit 26.2; WBC 13; platelets 160. Sodium 133; potassium 4.7; chloride 102; carbon dioxide 23; BUN 81; creatinine 2.12, decreased from 2.31; glucose 110; calcium 8.3; phosphorus 3.5; magnesium 3.3. ASSESSMENT: 1. 83-year-old male, status post left femoral neck fracture repair, postop day # 5. 2. Acute kidney injury, improving. 3. Hyponatremia, improving. 4. History of chronic kidney disease, hypertension, congestive heart failure, sleep apnea, asthma, chronic obstructive pulmonary disease, and depression. PLAN: Continue the current pain regimen and make sure that the patient is tolerating p.o. He will continue work with Physical and Occupational Therapy. He will continue his CPAP at night. The patient will be moved to the regular surgical non-orthopedic floor. He is pending acute rehab and swing bed at [place]. However, it is my understanding that [facility] is [facility] and so this may take some time. We have restarted his home medications, most notably his Lasix for his heart failure. This patient was seen, examined, and discussed with Dr. Monson, the attending physician, who agrees with the assessment and plan. Aliyah Eisenberg MD PGY1 Job ID: [id number] [facility]
[2018-10-14 14:26] VITALS: BP 147/64
[2018-10-14] MEDS: Furosemide 40 MG TAB PO SCH (14:46)
[2018-10-14] MEDS: Pantoprazole 40 MG VIAL IVP SCH (15:00)
[2018-10-14] MEDS: traMADol HCl 50 MG TAB PO PRN (16:55)
[2018-10-14] MEDS: Tamsulosin HCl 0.4 MG CAP PO SCH (20:20)
[2018-10-14] MEDS: HumaLOG 300 UNITS/3 ML VIAL SC PRN (20:20)
[2018-10-14] MEDS: rOPINIRole HCl 1 MG TAB PO SCH (20:21)
[2018-10-14] MEDS: hydrOXYzine 25 MG TAB PO SCH (21:05)
--- NOTE | 2018-10-15 00:17 | PRG ---
DATE OF SERVICE: 10/14/2018 The patient was seen today during evening rounds. He was resting comfortably and asleep on his CPAP device. He had no acute events during the day. He is now postop day 5 after fixation of the left femoral neck fracture. At the time of my evaluation, he was hemodynamically stable, afebrile and saturating 100% on CPAP device, which he wears at home as well. He had no signs of acute respiratory distress. Today, his home medications were restarted including his home Lasix. He continues to work with Physical and Occupational Therapy. Acute kidney injury has also improved. The patient is pending placement at a Swing Bed in [place] [employer]. Job ID: [id number]
[2018-10-15] MEDS: Levothyroxine Sodium 100 MCG TAB PO SCH (06:27)
[2018-10-15 07:07] LABS: Mean Corpuscular HGB CONC 33.6 g/dL (32.0-36.0); Mean Corpuscular Hemoglobin 32.1 pg (27.0-31.0); Mean Corpuscular Volume 95.3 fL (78.0-98.0); Mean Platelet Volume 8.1 fL (7.4-10.4); Platelet Count 176 thou/uL (130-400); RBC Distribution Width 13.5 % (11.5-14.5); Red Blood Cell (RBC) Count 2.82 mill/uL (4.70-6.10); White Blood Cell (WBC) Count 13.5 thou/uL (4.8-10.8)
[2018-10-15 07:28] LABS: Anion Gap 15 mmol/L (10-20); BUN (Urea Nitrogen) 75 mg/dL (8.4-25.7); Calc. Creatinine Clearance 57 mL/min (70-130); Calcium 8.5 mg/dL (7.8-10.44); Carbon Dioxide 22 mmol/L (23-31); Chloride 102 mmol/L (98-107); Estimated GFR-MDRD 33; Glucose 102 mg/dL (83-110); Magnesium 3.1 mg/dL (1.6-2.6); Phosphorus 3.4 mg/dL (2.3-4.7); Potassium 4.3 mmol/L (3.5-5.1); Sodium 135 mmol/L (136-145)
[2018-10-15] MEDS: Budesonide 0.5 MG/2 ML NEB INH SCH (08:15)
[2018-10-15 08:16] LABS: Band 4 % (5-11); Eosinophils 9 % (0-10); Lymphocytes 9 % (21-51); MDiff Complete? YES; Monocytes 10 % (0-10); Neutrophil 68 % (42-75); Platelet Morphology Comment Appears Adequate; Polychromasia MODERATE = 3-4 cells (100X) (0-2/hpf)
[2018-10-15] MEDS: Ferrous Sulfate 325 MG TAB PO SCH (08:46)
[2018-10-15] MEDS: hydrOXYzine 25 MG TAB PO SCH (09:35)
[2018-10-15] MEDS: Losartan 25 MG TAB PO SCH (09:44)
[2018-10-15] MEDS: hydrALAZINE 25 MG TAB PO SCH ×2 (09:45→15:00)
[2018-10-15] MEDS: Isosorbide Mononitrate (ER) 30 MG TAB PO SCH (09:45)
[2018-10-15] MEDS: Cyclobenzaprine 10 MG TAB PO SCH (09:46)
[2018-10-15] MEDS: Amlodipine 10 MG TAB PO SCH (09:46)
[2018-10-15] MEDS: Senokot S 8.6-50 MG TAB PO SCH (09:46)
[2018-10-15] MEDS: Ascorbic Acid 500 mg Chewable Tablet PO SCH (09:46)
[2018-10-15] MEDS: Gabapentin 300 MG CAP PO SCH (09:47)
[2018-10-15] MEDS: Furosemide 40 MG TAB PO SCH ×2 (09:48→15:00)
[2018-10-15] MEDS: Heparin 5,000 UNITS/ML VIAL SC SCH ×2 (09:49→14:59)
[2018-10-15] MEDS: Allopurinol 300 MG TAB PO SCH (10:06)
[2018-10-15] MEDS: Bisacodyl 10 MG SUPP PR SCH (10:14)
[2018-10-15] MEDS: Polyethylene Glycol 3350 17 GM Packet PO SCH (10:14)
[2018-10-15 11:09] VITALS: TEMP 98.2
--- NOTE | 2018-10-15 21:19 | DIS ---
DATE OF ADMISSION: 10/08/2018 DATE OF DISCHARGE: 10/15/2018 This is Luz Marina Lopez NP dictating a report for Carlos Monson DO. ADMITTING ATTENDING: Derian Salcido MD CONSULTS: Orthopedic Surgery, Dr. Bellamy. PROCEDURES: 1. On 10/07/2018, CT of the left lower extremity without contrast; impression, comminuted left femoral neck fracture with extension into the subtrochanteric proximal femoral shaft, diffuse osteopenia, moderate degenerative changes to the left hip. 2. Pelvis x-ray on 10/07/2018, no acute osseous abnormality. 3. On 10/09/2018, hip x-ray, intraoperative fracture fixation imaging on the left hip/femur. 4. On 10/09/2018, intramedullary nailing, left subtrochanteric femur fracture, closed reduction and internal fixation of the left femoral neck fracture by Dr. Bellamy. 5. On 10/12/2018, chest x-ray, cardiomegaly, limited study because of hypoinflated lungs. 6. Repeat chest x-ray after the patient had an episode of choking. Impression, no significant interval change. PRIMARY DIAGNOSIS: Left femoral neck fracture, status post mechanical fall. SECONDARY DIAGNOSES: History of congestive heart failure, hypothyroidism, chronic obstructive pulmonary disease, sleep apnea, hypertension, depression. DISCHARGE MEDICATIONS: 1. Tramadol 50 mg one tablet q.6 hours p.r.n. pain. 2. Allopurinol 300 mg p.o. daily. 3. Norvasc 10 mg p.o. daily. 4. Vitamin C 500 mg p.o. b.i.d. 5. Dulcolax suppositories as needed. 6. Flexeril 10 mg p.o. b.i.d. 7. Ferrous sulfate 325 mg p.o. b.i.d. 8. Lasix 40 mg b.i.d. 9. Gabapentin 300 mg b.i.d. 10. Hydroxyzine 50 mg p.o. b.i.d. 11. DuoNeb q.4 hours as needed. 12. Imdur 30 mg p.o. daily. 13. Lactulose as needed. 14. Synthroid 100 mcg p.o. daily. 15. Losartan 100 mg p.o. daily. 16. Ropinirole 1 mg p.o. at bedtime. 17. Senokot as needed. 18. Flomax 0.4mg p.o. at bedtime. HISTORY OF PRESENT ILLNESS AND HOSPITAL COURSE: This is an 83-year-old gentleman who was a transfer from [facility] via EMS after a ground level fall. The patient reported that he tried to reach something at home and tripped and fell. The patient reported left hip pain and limited range of motion and was unable to bear weight after the fall. The patient denies any loss of consciousness. The patient also denies hitting his head. The patient sustained a left subtrochanteric proximal femur fracture and was transferred to [facility] for orthopedic services. Postoperatively, the patient's pain was well controlled. The patient uses CPAP at night and did not have his own CPAP the first night and did not tolerate the hospital CPAP. The next morning, he was somewhat lethargic as he did not have a CPAP. The patient improved after wearing his own CPAP. Also during his hospital stay, he was taking his a.m. medications and choked on a pill. It was witnessed by the nurse and the nurse did have to do abdominal thrusts and called a code green. Chest x-ray was performed and neb treatments were given. Chest percussion therapy was also ordered. The patient did have a cough for several days after the choking. The patient also did receive 1 unit of packed red blood cells postoperatively. The patient continued to improve and had a good appetite. On the day of discharge, the patient was seen and evaluated by Dr. Monson. The patient had no complaints nor did the family. The patient's vital signs were stable on the day of discharge and exam was unremarkable including cardiopulmonary and GI exam. The patient was deemed stable for discharge to swing bed at [place], for continued physical and occupational therapy. DISPOSITION: Stable. DISCHARGE INSTRUCTIONS: 1. Location: [place] [facility] Unit. 2. Diet: Consistent carb diet, soft mechanical, renal, high-protein. 3. Orthopedic limitations. Toe touch LLE. 4. Follow up with Dr. Bellamy. This is just a summary of the patients hospital visit. Job ID: [id number] MTDD
== END 2018-10-15 15:25 | DRG 481 ==
LOC: ERS 00:31 → SURG B 04:05 → IMCU/EMU 10-12 10:47
PROVIDERS: ADMIT Surgery; ATTEND Surgery
PROC: 0QS736Z Reposition Left Upper Femur with Intramedullary Internal Fixation Device, Percutaneous Approach (ICD-10-PCS; principal; 2018-10-09)
PROC: 0QS734Z Reposition Left Upper Femur with Internal Fixation Device, Percutaneous Approach (ICD-10-PCS; 2018-10-09)
PROC: 30233N1 Transfusion of Nonautologous Red Blood Cells into Peripheral Vein, Percutaneous Approach (ICD-10-PCS; 2018-10-13)
DX: S72.22XA Displaced subtrochanteric fracture of left femur, initial encounter for closed fracture (principal); I13.0 Hypertensive heart and chronic kidney disease with heart failure and stage 1 through stage 4 chronic kidney disease, or unspecified chronic kidney disease; Z68.42 Body mass index [BMI] 45.0-49.9, adult; N18.4 Chronic kidney disease, stage 4 (severe); N17.9 Acute kidney failure, unspecified; D62 Acute posthemorrhagic anemia; E87.1 Hypo-osmolality and hyponatremia; S72.002A Fracture of unspecified part of neck of left femur, initial encounter for closed fracture; I50.9 Heart failure, unspecified; J44.9 Chronic obstructive pulmonary disease, unspecified; W18.30XA Fall on same level, unspecified, initial encounter; E03.9 Hypothyroidism, unspecified; F41.9 Anxiety disorder, unspecified; F31.9 Bipolar disorder, unspecified; G47.33 Obstructive sleep apnea (adult) (pediatric); E11.22 Type 2 diabetes mellitus with diabetic chronic kidney disease; E66.01 Morbid (severe) obesity due to excess calories; T17.990A Other foreign object in respiratory tract, part unspecified in causing asphyxiation, initial encounter; R06.03 Acute respiratory distress; Z79.82 Long term (current) use of aspirin; Z79.899 Other long term (current) drug therapy; Z79.4 Long term (current) use of insulin; K21.9 Gastro-esophageal reflux disease without esophagitis; Z88.5 Allergy status to narcotic agent
CPT/HCPCS: 36415; 36416; 36430; 71045; 76000; 80048; 82533; 82805; 83735; 83880; 84100; 85025; 86850; 86900; 86901; 94640; 94660; 94760; 96374; C1713; C1769; C9113; J0131; J0360; J0690; J1100; J1644; J1940; J2270; J2405; J2704; J3010; J3490; J7620; J7626; P9016

== ENCOUNTER 2019-02-12 17:18 | Inpatient (IN) | payer MEDICARE ==
[2019-02-12] MEDS ORDERED: methylPREDNISolone Sod Succ 40 MG VIAL ONE (17:35)
[2019-02-12] MEDS ORDERED: methylPREDNISolone Sod Succ/PF 125 MG/2 ML VIAL ONE (17:36)
[2019-02-12 17:52] LABS: Actual Bicarbonate (HCO3a) 24.5 mEq/L (22-28); Analyzer IN Cardio ER; Base Excess (BEa) -1.2 mEq/L (-2.0 to +3.0); Calcium, Ionized 1.11 mmol/L (1.12-1.30); Carboxyhemoglobin (COHb) 0.7 gm% (0.0-3.0); Hemoglobin (Hb) 12.1 g/dL (14.0-18.0); O2 Tension (PaO2) 101.8 mmHg (> 60.0); pH, Arterial 7.35 (7.35-7.45)
[2019-02-12 17:58] LABS: Puncture Site RRA
[2019-02-12 18:03] LABS: #Eosinphils 0.3 thou/uL (0.0-0.7); #Lymphocytes 1.2 thou/uL (1.20-3.40); #Monocytes 1.4 thou/uL (0.11-0.59); #Neutrophils 12.6 thou/uL (1.40-6.50); %Basophils 0.3 % (0.0-1.0); %Eosinophils 1.7 % (0.0-10.0); %Lymphocytes 7.5 % (21.0-51.0); %Monocytes 9.3 % (0.0-10.0); %Neutrophils 81.3 % (42.0-75.0); Hemoglobin 11.5 g/dL (14.0-18.0); Mean Corpuscular Hemoglobin 31.2 pg (27.0-31.0); Mean Corpuscular Volume 94.4 fL (78.0-98.0); Mean Platelet Volume 7.4 fL (7.4-10.4); Platelet Count 212 thou/uL (130-400); RBC Distribution Width 12.4 % (11.5-14.5); White Blood Cell (WBC) Count 15.5 thou/uL (4.8-10.8)
--- NOTE | 2019-02-12 18:15 | RAD ---
Portable frontal chest radiograph: 02/12/2019 COMPARISON: 10/12/2018 HISTORY: Shortness of breath and cough FINDINGS: Stable prominence of the cardiac silhouette. There is pulmonary vascular congestion with pe rihilar and bibasilar interstitial prominence as well as probable small bilateral pleural effusions. IMPRESSION: Findings suggesting interstitial pulmonary edema. Follow-up imaging following treatment t o document resolution suggested.
[2019-02-12 18:23] LABS: ALT (SGPT) 14 U/L (8-55); AST (SGOT) 21 U/L (5-34); Albumin 3.7 g/dL (3.4-4.8); Alkaline Phosphatase 149 U/L (40-110); Anion Gap 14 mmol/L (10-20); BUN (Urea Nitrogen) 20 mg/dL (8.4-25.7); Bilirubin, Total 0.6 mg/dL (0.2-1.2); CK (CPK) 169 U/L (30-200); Calc. Creatinine Clearance 0 mL/min (70-130); Calcium 8.5 mg/dL (7.8-10.44); Carbon Dioxide 26 mmol/L (23-31); Chloride 104 mmol/L (98-107); Estimated GFR-MDRD 48; Globulin 2.9 g/dL (2.4-3.5); Glucose 115 mg/dL (83-110); Potassium 4.6 mmol/L (3.5-5.1); Protein, Total 6.6 g/dL (5.8-8.1); Sodium 139 mmol/L (136-145)
[2019-02-12] MEDS ORDERED: Azithromycin 500 MG VIAL ONE (18:25)
[2019-02-12 18:46] LABS: CKMB 3.8 ng/mL (0-6.6)
[2019-02-12] MEDS ORDERED: Enoxaparin Sodium 100 MG/ML SYRINGE ONE (19:19)
[2019-02-12] MEDS ORDERED: Enoxaparin Sodium 30 MG/0.3 ML SYRINGE ONE ×2 (19:19→19:20)
[2019-02-12] MEDS ORDERED: Aspirin 325 MG TAB ONE (19:19)
[2019-02-12] MEDS ORDERED: cefTRIAXone\\ROCEPHIN 2 GM VIAL ONE (20:00)
--- NOTE | 2019-02-12 20:07 | RAD ---
2 views left hip: 02/12/2019 COMPARISON: 10/08/2018 HISTORY: Pain FINDINGS: There is severe degenerative change involving the left hip with superior joint space narrow ing and prominent lateral osteophyte formation. There is postoperative hardware within the proximal left femoral neck/shaft, incompletely imaged on this exam. No evidence for hardware failure. No displ aced fracture or dislocation. Distal aspect of the intramedullary britton is not imaged. IMPRESSION: Postoperative and degenerative change within the proximal left femur as above.
[2019-02-12] MEDS ORDERED: hydrALAZINE 20 MG/ML VIAL ONE (21:04)
--- NOTE | 2019-02-13 00:06 | HP ---
REASON FOR ADMISSION: Acute respiratory failure with hypoxia, acute CHF exacerbation. HISTORY OF PRESENTING ILLNESS: The patient gives history of having cough from last 2 days. This was dry cough and was getting worse. Finally, his called EMS and he was brought here. No complaints of fever as such. No complaints of chest pain or palpitation. The patient had severe orthopnea at home. On arrival, patient had saturations of 70% in the ER and was placed on BiPAP. He normally uses CPAP at night with 2 L of oxygen for obstructive sleep apnea. He also ambulates with a walker after having had his left hip replacement. He has developed edema in both lower extremities too. PAST MEDICAL AND SURGICAL HISTORY: History of diabetes mellitus, type 2; dyslipidemia; hypertension; history of asthma; sleep apnea, on CPAP, uses home oxygen at 2 L by nasal cannula. The patient states he has been told he has oversized heart. No prior stress test to his knowledge. Hernia repair, left hip fracture repair, done by Dr. Bellamy this year. CURRENT MEDICATIONS: 1. Allopurinol 300 mg p.o. daily. 2. Norvasc 10 mg p.o. daily. 3. Vitamin C 500 mg p.o. daily. 4. Budesonide nebulization twice daily. 5. Flexeril 10 mg twice daily p.r.n. 6. Ferrous sulfate 325 mg twice daily. 7. Lasix 40 mg twice daily. 8. Gabapentin 300 mg twice daily. 9. DuoNeb q.4 hourly p.r.n. 10. Flomax 0.4 mg p.o. daily. 11. Levothyroxine 100 mcg p.o. daily. 12. Imdur 30 mg p.o. daily. 13. Losartan 100 mg p.o. daily. 14. Celexa 40 mg p.o. daily. 15. Levemir 15 units subcutaneous daily. 16. Aspirin 81 mg p.o. daily. ALLERGIES: ALLERGIC TO CODEINE. PERSONAL HISTORY: Never smoked in his life. Does not abuse alcohol or drugs. Lives with his . FAMILY HISTORY: Mother in the 70s, she had history of coronary artery disease. Father in his 80s from natural causes as far as he knows. The patient normally ambulates with a walker now. He states he ambulates minimally. CODE STATUS: The patient wants to be do not attempt to resuscitate. He says "if it is my time to go, it is my time." [id number] is his . REVIEW OF SYSTEMS: CONSTITUTIONAL: Negative for weight loss or gain, ability to conduct usual activities. SKIN: Negative for rash, itching. EYES: Negative for double vision, pain. ENT/MOUTH: Negative for nose bleeding, neck stiffness, pain, tenderness. CARDIOVASCULAR: Negative for palpitations, dyspnea on exertion, orthopnea. RESPIRATORY: Negative for shortness of breath, wheezing, cough, hemoptysis, fever or night sweats. GASTROINTESTINAL: Negative for poor appetite, abdominal pain, heartburn, nausea , vomiting, constipation, or diarrhea. GENITOURINARY: Negative for urgency, frequency, dysuria, nocturia. MUSCULOSKELETAL: Negative for pain, swelling. NEUROLOGIC/PSYCHIATRIC: Negative for anxiety, depression. ALLERGY/IMMUNOLOGIC: Negative for skin rash, bleeding tendency. PHYSICAL EXAMINATION: GENERAL: The patient is an 83-year-old male who is currently in mild respiratory distress and is coughing. VITAL SIGNS: Blood pressure on arrival was 216/94, currently 180/70, pulse 80 per minute, respiratory rate 26 per minute, temperature 98.2 degrees Fahrenheit, saturating 100% on BiPAP. NECK: Supple. No elevated JVD. HEENT: Eyes; extraocular muscles intact. Pupils reacting to light. Oral cavity, mucous membranes are dry. No exudates or congestion. CARDIOVASCULAR: S1, S2 heard. Regular rhythm. RESPIRATORY: Air entry 1+ bilateral. Scattered rhonchi plus bilateral. No wheezes. ABDOMEN: Soft, bowel sounds heard. No tenderness, rigidity, or guarding. EXTREMITIES: Mild peripheral edema. No calf tenderness. The patient also has a wart on the medial aspect of the left thigh. The left lower extremity edema is more than right. CENTRAL NERVOUS SYSTEM: No gross focal motor deficits noted. The patient is alert, awake, and oriented. PSYCHIATRIC: No hallucinations or delusions. LABORATORY DATA: White count of 15, H and H 11 and 35, platelet count 212, MCV is 94 with 81% neutrophils. Blood gas done on BiPAP shows a pH of 7.35, pCO2 45, PO2 101, BUN 20, creatinine 1.4, serum glucose 115, AST and ALT within normal limits , T bilirubin 0.6, alkaline phosphatase 149. Troponin I 0.16. BNP 282. Albumin is 3.7. Chest x-ray done shows pulmonary vascular congestion. Right hip two-view x-ray done shows postop changes in the proximal left femur. EKG done shows normal sinus rhythm at 82 beats per minute with poor R-wave progression. CLINICAL IMPRESSION AND PLAN: The patient will be admitted to [facility] for acute respiratory failure with hypoxia, on BiPAP. The patient likely has acute congestive heart failure exacerbation and we will obtain echo with 2D Doppler for LV function. The patient is obese and weighs nearly 129 kg. He has underlying obstructive sleep apnea as well and uses CPAP at night with oxygen. He has never smoked in his life, but he is on budesonide nebulizer and DuoNebs at home. We will empirically place him on Levaquin. His white count is 15. He will be on Lasix 40 mg IV at 6:00 a.m. and 2:00 p.m. Cardiology consultation with Dr. Muir will be requested. We will continue his aspirin, low-dose Coreg will be added, Cozaar at 12.5 mg daily, Levemir 15 units as before, Imdur extended release 30 mg, Synthroid 100 mcg p.o. daily, ropinirole, Flomax, Ultram, Senokot, and allopurinol will be continued along with Celexa. We will continue to closely monitor him in [facility]. Job ID: [id number] [facility]
[2019-02-13] MEDS ORDERED: Acetaminophen 325 MG TAB PO PRN (00:17)
[2019-02-13] MEDS ORDERED: Dextrose 50% Abboject 50 ML SYRINGE SLOW IVP PRN (00:17)
[2019-02-13] MEDS ORDERED: HumaLOG 300 UNITS/3 ML VIAL SC PRN ×2 (00:17)
[2019-02-13] MEDS ORDERED: Ondansetron PF 4 MG/2 ML Vial IVP PRN (00:17)
[2019-02-13] MEDS ORDERED: Bisacodyl 10 MG SUPP PR PRN (00:17)
[2019-02-13] MEDS ORDERED: Dextrose 5% in Water 1,000 ML IV PRN (00:17)
[2019-02-13] MEDS ORDERED: Senokot S 8.6-50 MG TAB PO PRN (00:17)
[2019-02-13] MEDS ORDERED: Furosemide 20 MG/2 ML VIAL ONE (00:51)
[2019-02-13] MEDS ORDERED: Levofloxacin 500 mg/D5W 100 ml Premix Bag ONE (01:29)
[2019-02-13] MEDS ORDERED: Nitroglycerin 2% Ointment 1 INCH/1 GM Packet ONE (01:57)
[2019-02-13 03:06] LABS: #Lymphocytes 0.8 thou/uL (1.20-3.40); #Monocytes 0.1 thou/uL (0.11-0.59); #Neutrophils 12.3 thou/uL (1.40-6.50); %Eosinophils 0.1 % (0.0-10.0); %Lymphocytes 5.7 % (21.0-51.0); %Monocytes 0.9 % (0.0-10.0); %Neutrophils 93.2 % (42.0-75.0); Hemoglobin 11.5 g/dL (14.0-18.0); Mean Corpuscular HGB CONC 32.3 g/dL (32.0-36.0); Mean Corpuscular Hemoglobin 30.6 pg (27.0-31.0); Mean Corpuscular Volume 94.8 fL (78.0-98.0); Mean Platelet Volume 7.6 fL (7.4-10.4); Platelet Count 193 thou/uL (130-400); RBC Distribution Width 12.5 % (11.5-14.5); Red Blood Cell (RBC) Count 3.74 mill/uL (4.70-6.10); White Blood Cell (WBC) Count 13.2 thou/uL (4.8-10.8)
[2019-02-13 03:33] LABS: Anion Gap 17 mmol/L (10-20); BUN (Urea Nitrogen) 24 mg/dL (8.4-25.7); Calc. Creatinine Clearance 73 mL/min (70-130); Calcium 8.5 mg/dL (7.8-10.44); Carbon Dioxide 21 mmol/L (23-31); Chloride 105 mmol/L (98-107); Estimated GFR-MDRD 47; Glucose 158 mg/dL (83-110); Potassium 4.5 mmol/L (3.5-5.1); Sodium 138 mmol/L (136-145)
[2019-02-13] MEDS ORDERED: hydrALAZINE 25 MG TAB PO SCH (05:45)
[2019-02-13] MEDS ORDERED: cloNIDine 0.1 MG TAB ONE (05:57)
[2019-02-13] MEDS ORDERED: Furosemide 40 MG/4 ML VIAL ONE ×2 (05:57→16:02)
[2019-02-13] MEDS ORDERED: hydrALAZINE 25 MG TAB ONE ×2 (05:57→12:57)
[2019-02-13] MEDS: Furosemide 40 MG/4 ML VIAL SLOW IVP SCH ×2 (06:05→16:20)
[2019-02-13] MEDS: Levothyroxine Sodium 100 MCG TAB PO SCH (06:09)
[2019-02-13] MEDS: cloNIDine 0.1 MG TAB PO PRN (06:09)
[2019-02-13] MEDS: Budesonide 0.5 MG/2 ML NEB NEB SCH ×2 (08:20→18:47)
[2019-02-13] MEDS ORDERED: Losartan 25 MG TAB PO SCH (09:00)
[2019-02-13] MEDS ORDERED: Non-Formulary Item 1 EACH (Insulin Detemir [Levemir] 15 UNITS) SQ SCH (09:00)
[2019-02-13] MEDS ORDERED: traMADol HCl 50 MG TAB ONE (10:25)
[2019-02-13] MEDS: traMADol HCl 50 MG TAB PO PRN ×2 (10:30→21:24)
[2019-02-13] MEDS: Insulin Glargine 15 UNITS in Pre-Filled Syringe 1 EACH SC SCH (11:39)
[2019-02-13] MEDS ORDERED: Aspirin Chewable 81 MG TAB ONE (12:03)
[2019-02-13] MEDS: Allopurinol 100 MG TAB PO SCH (12:05)
[2019-02-13] MEDS: Amlodipine 10 MG TAB PO SCH (12:05)
[2019-02-13] MEDS: Ferrous Sulfate 325 MG TAB PO SCH ×2 (12:05→17:13)
[2019-02-13] MEDS: Aspirin Chewable 81 MG TAB PO SCH (12:09)
[2019-02-13] MEDS: Carvedilol 3.125 MG TAB PO SCH ×2 (12:09→21:27)
[2019-02-13] MEDS: Citalopram 20 MG TAB PO SCH (12:09)
[2019-02-13] MEDS: Isosorbide Mononitrate (ER) 30 MG TAB PO SCH (12:09)
[2019-02-13] MEDS: Gabapentin 300 MG CAP PO SCH ×2 (12:09→21:27)
[2019-02-13] MEDS: Losartan 25 MG TAB PO SCH (12:09)
[2019-02-13] MEDS: Polyethylene Glycol 3350 17 GM Packet PO SCH (12:09)
[2019-02-13] MEDS ORDERED: Enoxaparin Sodium 40 MG/0.4 ML SYRINGE ONE (12:54)
[2019-02-13] MEDS: Enoxaparin Sodium 40 MG/0.4 ML SYRINGE SC SCH (13:08)
[2019-02-13] MEDS: hydrALAZINE 25 MG TAB PO SCH ×3 (13:14→21:27)
--- NOTE | 2019-02-13 13:41 | PDOC.HOSPP ---
- Subjective Encounter Date: 02/13/19 Encounter Time: 13:39 Subjective: Feeling a little better overall. Says he has been diagnosed with CHF in the past. Say she has an "enlarged heart". PCP is the [place]. Does not have a real estate manager. - Objective Vital Signs & Weight: Vital Signs (12 hours) Pulse Resp Pulse Ox 02/13/19 13:14 68 02/13/19 12:05 68 02/13/19 10:24 68 22 H 97 02/13/19 08:20 78 19 94 L Weight Weight 286 lb 0.091 oz Result Diagrams: 02/13/19 03:00 02/13/19 03:00 Additional Labs: Accuchecks 02/13/19 11:30 POC Glucose 142 H Hospitalist ROS - Medication Medications: Active Medications Generic Name Dose Route Start Last Admin Trade Name Freq PRN Reason Stop Dose Admin Albuterol/Ipratropium 3 ml 02/13/19 07:00 02/13/19 10:24 Duoneb NEB 3 ml [id number] BRODIE Administration Allopurinol 100 mg 02/13/19 09:00 02/13/19 12:05 Zyloprim PO 100 mg DAILY BRODIE Administration Amlodipine Besylate 10 mg 02/13/19 09:00 02/13/19 12:05 Norvasc PO 10 mg DAILY BRODIE Administration Aspirin 81 mg 02/13/19 09:00 02/13/19 12:09 Aspirin Chewable PO 81 mg DAILY BRODIE Administration Budesonide 0.5 mg 02/13/19 06:30 02/13/19 08:20 Pulmicort Neb Solution NEB 0.5 mg BID-RT BRODIE Administration Carvedilol 3.125 mg 02/13/19 09:00 02/13/19 12:09 Coreg PO 3.125 mg BID BRODIE Administration Citalopram Hydrobromide 40 mg 02/13/19 09:00 02/13/19 12:09 Celexa PO 40 mg DAILY BRODIE Administration Clonidine 0.1 mg 02/13/19 05:29 02/13/19 06:09 Catapres PO 0.1 mg Q4H PRN Administration sbp>180 Enoxaparin Sodium 40 mg 02/13/19 09:00 02/13/19 13:08 Lovenox SC 40 mg 0900 BRODIE Administration Ferrous Sulfate 325 mg 02/13/19 08:00 02/13/19 12:05 Feosol PO 325 mg BID-WM BRODIE Administration Furosemide 40 mg 02/13/19 06:00 02/13/19 06:05 Lasix SLOW IVP 40 mg 0600,1400 BRODIE Administration Gabapentin 300 mg 02/13/19 09:00 02/13/19 12:09 Neurontin PO 300 mg BID BRODIE Administration Hydralazine HCl 50 mg 02/13/19 09:00 02/13/19 13:14 Apresoline PO 50 mg TID BRODIE Administration Levofloxacin 500 mg/ Device 100 mls @ 100 mls/hr 02/13/19 01:00 02/13/19 01: 39 IVPB 100 mls Q24HR BRODIE Administration Insulin Glargine 15 units/ 0.15 mls @ 0 mls/hr 02/13/19 09:00 02/13/19 11:39 Miscellaneous Medication SC 0.15 mls QAM BRODIE Administration Isosorbide Mononitrate 30 mg 02/13/19 09:00 02/13/19 12:09 Imdur Er PO 30 mg DAILY BRODIE Administration Levothyroxine Sodium 100 mcg 02/13/19 06:00 02/13/19 06:09 Synthroid PO 100 mcg 0600 BRODIE Administration Losartan Potassium 100 mg 02/13/19 09:00 02/13/19 12:09 Cozaar PO 100 mg DAILY BRODIE Administration Pantoprazole Sodium 40 mg 02/13/19 09:00 02/13/19 13:14 Protonix PO 40 mg DAILY BRODIE Administration Polyethylene Glycol 17 gm 02/13/19 09:00 02/13/19 12:09 Miralax PO 17 gm DAILY BRODIE Administration Tramadol HCl 50 mg 02/13/19 00:17 02/13/19 10:30 Ultram PO 50 mg Q6H PRN Administration Moderate to Severe Pain (6-10) - Exam General Appearance: NAD, awake alert Heart: RRR, no murmur, no gallops, no rubs, normal peripheral pulses Respiratory: no ronchi, normal chest expansion, no tachypnea, normal percussion , rales (Mild scattered.), wheezes (Mild, scattered, expiratory) Gastrointestinal: soft, non-tender, non-distended, normal bowel sounds, no palpable masses, no hepatomegaly, no splenomegaly, no bruit Extremities: no cyanosis, no clubbing, 1+ LE edema Skin: normal turgor Musculoskeletal: normal tone Psychiatric: normal affect, normal behavior, A&O x 3 Hosp A/P (1) CHF (congestive heart failure) Code(s): I50.9 - HEART FAILURE, UNSPECIFIED Status: Acute (2) CKD (chronic kidney disease), stage IV Code(s): N18.4 - CHRONIC KIDNEY DISEASE, STAGE 4 (SEVERE) Status: Chronic (3) BPH (benign prostatic hyperplasia) Code(s): N40.0 - BENIGN PROSTATIC HYPERPLASIA WITHOUT LOWER URINRY TRACT SYMP Status: Chronic (4) COPD (chronic obstructive pulmonary disease) Status: Chronic (5) Diabetes 1.5, managed as type 2 Code(s): E13.9 - OTHER SPECIFIED DIABETES MELLITUS WITHOUT COMPLICATIONS Status: Acute (6) Hyperlipidemia Code(s): E78.5 - HYPERLIPIDEMIA, UNSPECIFIED Status: Chronic (7) Hypertension Code(s): I10 - ESSENTIAL (PRIMARY) HYPERTENSION Status: Chronic (8) Restless leg syndrome Status: Chronic (9) Sleep apnea Code(s): G47.30 - SLEEP APNEA, UNSPECIFIED Status: Chronic (10) Myocardial infarction Code(s): I21.9 - ACUTE MYOCARDIAL INFARCTION, UNSPECIFIED Status: Acute Qualifiers: Myocardial infarction type: type 2 Qualified Code(s): I21.A1 - Myocardial infarction type 2 (11) Acute respiratory failure with hypoxia Code(s): J96.01 - ACUTE RESPIRATORY FAILURE WITH HYPOXIA Status: Acute (12) Hypothyroidism Code(s): E03.9 - HYPOTHYROIDISM, UNSPECIFIED Status: Chronic - Plan Hx of CHF, but no old echo's here. [facility] Has pulm edema and elevated BNP consistent with CHF. Diuresis. Continue home meds (ie Coreg). Echo pending. Card consult pending. Feeling better in general. Weaned down to [place] oxygen off BIPAP. Ambulates modestly at home with a walker. Bad hip and bad ankle on the left. Resuming home meds for DM. Diabetic diet, accuchecks and SSI.
[2019-02-13 13:57] LABS: Troponin I 1.158 ng/mL (< 0.028)
[2019-02-13 17:54] LABS: Troponin I 1.261 ng/mL (< 0.028)
[2019-02-13] MEDS ORDERED: Potassium Chloride 20 MEQ TAB PO SCH (19:30)
[2019-02-13] MEDS ORDERED: Furosemide 40 MG/4 ML VIAL SLOW IVP SCH (19:30)
--- NOTE | 2019-02-13 20:03 | CON ---
DATE OF CONSULTATION: 02/13/2019 REASON FOR CONSULTATION: Shortness of breath, hypertension, increased troponin levels, COPD. HISTORY OF PRESENT ILLNESS: Mr. Pfeiffer is an 83-year-old gentleman who came to the hospital last night with difficulty breathing. The patient had a productive cough which has been worsening over the last few days and also had low oxygen saturations. The patient has CPAP, he uses at home. The patient has a long history of diabetes, hypertension, asthma, sleep apnea, also had a broken left hip earlier this year, repaired by Dr. Bellamy. MEDICATIONS: Prior to admission: 1. Allopurinol. 2. Norvasc. 3. Vitamin C. 4. Flexeril. 5. Lasix 40 mg twice a day. 6. Flomax. 7. Imdur. 8. Losartan. 9. Celexa. 10. Levemir. 11. Aspirin. ALLERGIES: CODEINE. SOCIAL HISTORY: No smoking history. 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 FAMILY HISTORY: Mother in her 70s. CODE STATUS: The patient prefers do not attempt resuscitate according to the history and physical. REVIEW OF SYSTEMS: CONSTITUTIONAL: No significant weight loss. VISION: No changes. HEARING: No changes. PULMONARY: No cough or wheezing. GASTROINTESTINAL: No nausea, vomiting, or diarrhea. SKIN: No rashes. NEUROLOGICAL: No unilateral weakness or numbness. PSYCHIATRIC: No unusual depression or anxiety. PHYSICAL EXAMINATION: GENERAL: This is an 83-year-old gentleman with severe cough. VITAL SIGNS: Blood pressure is still high 195/83, pulse 74 and regular. LUNGS: Some expiratory wheezing, some rhonchi. CARDIAC: Normal S1, normal S2. ABDOMEN: Obese, nontender. EXTREMITIES: No clubbing or cyanosis. There is mild to moderate peripheral edema. He has chronic venous stasis changes, darkish discoloration of his lower extremities. It is difficult to feel pedal pulses. I do feel popliteal pulses bilaterally. PERTINENT LABORATORY DATA: Troponin level peak 1.261. Creatinine 1.45. Chest x-ray, pulmonary edema. ASSESSMENT: 1. Congestive heart failure, may be chronic diastolic. Do not have an echocardiogram yet. Does have an acute component. 2. Chronic edema. 3. Probably some chronic obstructive pulmonary disease. 4. Morbid obesity with a BMI of 42. 5. Previous hip fracture. 6. Renal insufficiency stage 3. PLAN: 1. Continue diuresis. 2. Echocardiogram. 3. Aspirin. 4. We will follow with you. Job ID: [id number]
[2019-02-13] MEDS: rOPINIRole HCl 1 MG TAB PO SCH (21:24)
[2019-02-13] MEDS: Tamsulosin HCl 0.4 MG CAP PO SCH (21:26)
[2019-02-13] MEDS: Nitroglycerin 2% Ointment 1 INCH/1 GM Packet TOP SCH (21:27)
[2019-02-14] MEDS: Levothyroxine Sodium 100 MCG TAB PO SCH (05:54)
[2019-02-14] MEDS: Furosemide 40 MG/4 ML VIAL SLOW IVP SCH ×2 (05:54→14:55)
[2019-02-14] MEDS: Budesonide 0.5 MG/2 ML NEB NEB SCH ×2 (06:56→18:42)
[2019-02-14] MEDS: Insulin Glargine 15 UNITS in Pre-Filled Syringe 1 EACH SC SCH (08:06)
[2019-02-14] MEDS: Aspirin Chewable 81 MG TAB PO SCH (08:07)
[2019-02-14] MEDS: hydrALAZINE 25 MG TAB PO SCH ×3 (08:07→20:29)
[2019-02-14] MEDS: Amlodipine 10 MG TAB PO SCH (08:07)
[2019-02-14] MEDS: Isosorbide Mononitrate (ER) 30 MG TAB PO SCH (08:07)
[2019-02-14] MEDS: Enoxaparin Sodium 40 MG/0.4 ML SYRINGE SC SCH (08:07)
[2019-02-14] MEDS: Citalopram 20 MG TAB PO SCH (08:08)
[2019-02-14] MEDS: Gabapentin 300 MG CAP PO SCH ×2 (08:08→20:29)
[2019-02-14] MEDS: Losartan 25 MG TAB PO SCH (08:08)
[2019-02-14] MEDS: Allopurinol 100 MG TAB PO SCH (08:08)
[2019-02-14] MEDS: Carvedilol 3.125 MG TAB PO SCH ×2 (08:08→20:30)
[2019-02-14] MEDS: Nitroglycerin 2% Ointment 1 INCH/1 GM Packet TOP SCH ×2 (08:09→20:30)
[2019-02-14] MEDS: Ferrous Sulfate 325 MG TAB PO SCH ×2 (08:09→17:53)
[2019-02-14] MEDS: Polyethylene Glycol 3350 17 GM Packet PO SCH (08:09)
--- NOTE | 2019-02-14 10:54 | PRG ---
DATE OF SERVICE: 02/14/2019 SUBJECTIVE: Mr. Pfeiffer is really not breathing much better. I think he has only had a modest response to the diuretics. He still has a lot of cough, has a lot of phlegm in the airways. No chest pain. OBJECTIVE: VITAL SIGNS: Blood pressure 170/70 and pulse 70. LUNGS: Diffuse rhonchi. CARDIAC: Normal S1, normal S2. ABDOMEN: Soft, nontender. He is obese. EXTREMITIES: No clubbing or cyanosis. There is still moderate edema. ASSESSMENT: 1. Status post non-ST elevation myocardial infarction probably demand ischemia. 2. Congestive heart failure based on increased BNP. Echocardiogram pending. 3. Hypertension. PLAN: 1. Continue hydralazine. 2. Continue amlodipine. 3. Continue losartan. 4. Continue diuretics. We will increase carvedilol with next dose. I will be out rest of the week. Dr. Lopez will see the patient in the next couple of days my partner subsequently. Job ID: [id number]
[2019-02-14] MEDS: Tamsulosin HCl 0.4 MG CAP PO SCH (20:29)
[2019-02-14] MEDS: rOPINIRole HCl 1 MG TAB PO SCH (20:30)
--- NOTE | 2019-02-14 22:18 | PDOC.HOSPP ---
- Subjective Subjective: Still has some SOB. Has some cough. - Objective Vital Signs & Weight: Vital Signs (12 hours) Temp Pulse Pulse Pulse Resp BP BP 02/14/19 20:29 81 170/87 H 02/14/19 20:00 98.6 F 81 18 02/14/19 18:41 77 16 02/14/19 15:55 97.8 F 71 18 02/14/19 13:47 75 67 171/75 H 02/14/19 12:05 97.8 F 67 18 02/14/19 10:41 79 18 BP BP Pulse Ox Pulse Ox Pulse Ox 02/14/19 20:29 02/14/19 20:00 170/87 H 92 L 02/14/19 18:41 95 02/14/19 15:55 136/82 94 L 02/14/19 13:47 139/86 95 94 L 02/14/19 12:05 135/61 94 L 02/14/19 10:41 96 Weight Weight 286 lb I&O: 02/13/19 02/14/19 02/15/19 06:59 06:59 06:59 Intake Total 720 1320 Output Total 1550 1550 Balance -830 -230 Result Diagrams: 02/13/19 03:00 02/15/19 04:33 Additional Labs: Accuchecks 02/14/19 02/14/19 02/14/19 21:14 16:50 10:54 POC Glucose 168 H 108 148 H 02/14/19 05:58 POC Glucose 96 Hospitalist ROS - Medication Medications: Active Medications Generic Name Dose Route Start Last Admin Trade Name Freq PRN Reason Stop Dose Admin Albuterol/Ipratropium 3 ml 02/13/19 07:00 02/14/19 18:41 Duoneb NEB 3 ml [id number] BRODIE Administration Allopurinol 100 mg 02/13/19 09:00 02/14/19 08:08 Zyloprim PO 100 mg DAILY BRODIE Administration Amlodipine Besylate 10 mg 02/13/19 09:00 02/14/19 08:07 Norvasc PO 10 mg DAILY BRODIE Administration Aspirin 81 mg 02/13/19 09:00 02/14/19 08:07 Aspirin Chewable PO 81 mg DAILY BRODIE Administration Budesonide 0.5 mg 02/13/19 06:30 02/14/19 18:42 Pulmicort Neb Solution NEB 0.5 mg BID-RT BRODIE Administration Carvedilol 6.25 mg 02/14/19 21:00 02/14/19 20:30 Coreg PO 6.25 mg BID BRODIE Administration Citalopram Hydrobromide 40 mg 02/13/19 09:00 02/14/19 08:08 Celexa PO 40 mg DAILY BRODIE Administration Clonidine 0.1 mg 02/13/19 05:29 02/13/19 06:09 Catapres PO 0.1 mg Q4H PRN Administration sbp>180 Enoxaparin Sodium 40 mg 02/13/19 09:00 02/14/19 08:07 Lovenox SC 40 mg 0900 BRODIE Administration Ferrous Sulfate 325 mg 02/13/19 08:00 02/14/19 17:53 Feosol PO 325 mg BID-WM BRODIE Administration Furosemide 40 mg 02/13/19 06:00 02/14/19 14:55 Lasix SLOW IVP 40 mg 0600,1400 BRODIE Administration Gabapentin 300 mg 02/13/19 09:00 02/14/19 20:29 Neurontin PO 300 mg BID BRODIE Administration Hydralazine HCl 50 mg 02/13/19 09:00 02/14/19 20:29 Apresoline PO 50 mg TID BRODIE Administration Insulin Glargine 15 units/ 0.15 mls @ 0 mls/hr 02/13/19 09:00 02/14/19 08:06 Miscellaneous Medication SC 0.15 mls QAM BRODIE Administration Isosorbide Mononitrate 30 mg 02/13/19 09:00 02/14/19 08:07 Imdur Er PO 30 mg DAILY BRODIE Administration Levothyroxine Sodium 100 mcg 02/13/19 06:00 02/14/19 05:54 Synthroid PO 100 mcg 0600 BRODIE Administration Losartan Potassium 100 mg 02/13/19 09:00 02/14/19 08:08 Cozaar PO 100 mg DAILY BRODIE Administration Nitroglycerin 1 inch 02/13/19 21:00 02/14/19 20:30 Nitro-Bid 2% Ointment TOP 1 inch BID BRODIE Administration Pantoprazole Sodium 40 mg 02/13/19 09:00 02/14/19 08:08 Protonix PO 40 mg DAILY BRODIE Administration Polyethylene Glycol 17 gm 02/13/19 09:00 02/14/19 08:09 Miralax PO 17 gm DAILY BRODIE Administration Ropinirole HCl 1 mg 02/13/19 21:00 02/14/19 20:30 Requip PO 1 mg HS BRODIE Administration Tamsulosin HCl 0.4 mg 02/13/19 21:00 02/14/19 20:29 Flomax PO 0.4 mg HS BRODIE Administration Tramadol HCl 50 mg 02/13/19 00:17 02/13/19 21:24 Ultram PO 50 mg Q6H PRN Administration Moderate to Severe Pain (6-10) Hosp A/P (1) CHF (congestive heart failure) Code(s): I50.9 - HEART FAILURE, UNSPECIFIED Status: Acute Qualifiers: Heart failure type: diastolic Heart failure chronicity: acute on chronic Qualified Code(s): I50.33 - Acute on chronic diastolic (congestive) heart failure (2) CKD (chronic kidney disease), stage IV Code(s): N18.4 - CHRONIC KIDNEY DISEASE, STAGE 4 (SEVERE) Status: Chronic (3) BPH (benign prostatic hyperplasia) Code(s): N40.0 - BENIGN PROSTATIC HYPERPLASIA WITHOUT LOWER URINRY TRACT SYMP Status: Chronic (4) COPD (chronic obstructive pulmonary disease) Status: Chronic (5) Diabetes 1.5, managed as type 2 Code(s): E13.9 - OTHER SPECIFIED DIABETES MELLITUS WITHOUT COMPLICATIONS Status: Acute (6) Hyperlipidemia Code(s): E78.5 - HYPERLIPIDEMIA, UNSPECIFIED Status: Chronic (7) Hypertension Code(s): I10 - ESSENTIAL (PRIMARY) HYPERTENSION Status: Chronic (8) Restless leg syndrome Status: Chronic (9) Sleep apnea Code(s): G47.30 - SLEEP APNEA, UNSPECIFIED Status: Chronic (10) Myocardial infarction Code(s): I21.9 - ACUTE MYOCARDIAL INFARCTION, UNSPECIFIED Status: Acute Qualifiers: Myocardial infarction type: type 2 Qualified Code(s): I21.A1 - Myocardial infarction type 2 (11) Acute respiratory failure with hypoxia Code(s): J96.01 - ACUTE RESPIRATORY FAILURE WITH HYPOXIA Status: Acute (12) Hypothyroidism Code(s): E03.9 - HYPOTHYROIDISM, UNSPECIFIED Status: Chronic - Plan Hx of CHF, but no old echo's here. [facility] Has pulm edema and elevated BNP consistent with CHF. Diuresis. Continue home meds (ie Coreg). Echo pending. Card consult pending. Feeling better in general. Weaned down to [place] oxygen off BIPAP. Ambulates modestly at home with a walker. Bad hip and bad ankle on the left. Resuming home meds for DM. Diabetic diet, accuchecks and SSI.
[2019-02-15 05:13] LABS: Anion Gap 12 mmol/L (10-20); BUN (Urea Nitrogen) 37 mg/dL (8.4-25.7); Calc. Creatinine Clearance 61 mL/min (70-130); Carbon Dioxide 32 mmol/L (23-31); Chloride 100 mmol/L (98-107); Estimated GFR-MDRD 38; Glucose 118 mg/dL (83-110); Potassium 4.3 mmol/L (3.5-5.1); Sodium 140 mmol/L (136-145)
[2019-02-15] MEDS: Furosemide 40 MG/4 ML VIAL SLOW IVP SCH ×2 (05:38→15:38)
[2019-02-15] MEDS: Levothyroxine Sodium 100 MCG TAB PO SCH (05:38)
[2019-02-15] MEDS: Budesonide 0.5 MG/2 ML NEB NEB SCH ×2 (07:05→18:49)
[2019-02-15] MEDS: Allopurinol 100 MG TAB PO SCH (08:52)
[2019-02-15] MEDS: Losartan 25 MG TAB PO SCH (08:53)
[2019-02-15] MEDS: Amlodipine 10 MG TAB PO SCH (08:54)
[2019-02-15] MEDS: Carvedilol 3.125 MG TAB PO SCH ×2 (08:54→20:14)
[2019-02-15] MEDS: Aspirin Chewable 81 MG TAB PO SCH (08:54)
[2019-02-15] MEDS: hydrALAZINE 25 MG TAB PO SCH ×3 (08:54→20:54)
[2019-02-15] MEDS: Ferrous Sulfate 325 MG TAB PO SCH ×2 (08:54→16:44)
[2019-02-15] MEDS: Isosorbide Mononitrate (ER) 30 MG TAB PO SCH (08:54)
[2019-02-15] MEDS: Citalopram 20 MG TAB PO SCH (08:54)
[2019-02-15] MEDS: Enoxaparin Sodium 40 MG/0.4 ML SYRINGE SC SCH (08:55)
[2019-02-15] MEDS: Polyethylene Glycol 3350 17 GM Packet PO SCH (08:55)
[2019-02-15] MEDS: Gabapentin 300 MG CAP PO SCH ×2 (08:55→20:00)
[2019-02-15] MEDS: Nitroglycerin 2% Ointment 1 INCH/1 GM Packet TOP SCH ×2 (08:55→20:01)
[2019-02-15] MEDS: Insulin Glargine 15 UNITS in Pre-Filled Syringe 1 EACH SC SCH (09:01)
--- NOTE | 2019-02-15 10:24 | PRG ---
DATE OF SERVICE: 02/14/2019 ADDENDUM: Mr. Pfeiffer' echocardiogram really looked relatively good. Ejection fraction 55% to 60%. No significant valvular heart disease. I think most of the patient's problems are actually pulmonary in origin. He really did not respond much to the diuretics and the BNP was only slightly elevated. He is on low-dose carvedilol. He is on intravenous diuretics on hydralazine and isosorbide, but I would recommend reducing the diuretic therapy tomorrow if he is not enough putting out much urine. He is also receiving inhaled bronchodilators, which I think is helping him quite a bit. Job ID: [id number]
--- NOTE | 2019-02-15 15:44 | PDOC.CPN ---
- Subjective Date: 02/15/19 Time: 15:51 Interval history: The pt seen and examined. No overnight events. No cardiac complaints. - Objective Allergies/Adverse Reactions: Allergies Allergy/AdvReac Type Severity Reaction Status Date / Time codeine Allergy Hives Verified 02/13/19 00:19 Visit Medications: Current Medications Acetaminophen (Tylenol) 650 mg PO Q4H PRN PRN Reason: Headache/Fever/Mild Pain (1-3) Albuterol/Ipratropium (Duoneb) 3 ml NEB [id number] SCH Last Admin: 02/15/19 14:55 Dose: 3 ml Allopurinol (Zyloprim) 100 mg PO DAILY [facility] Last Admin: 02/15/19 08:52 Dose: 100 mg Amlodipine Besylate (Norvasc) 10 mg PO DAILY [facility] Last Admin: 02/15/19 08:54 Dose: 10 mg Aspirin (Aspirin Chewable) 81 mg PO DAILY [facility] Last Admin: 02/15/19 08:54 Dose: 81 mg Bisacodyl (Dulcolax) 10 mg [place] DAILYPRN PRN PRN Reason: Constipation Budesonide (Pulmicort Neb Solution) 0.5 mg NEB BID-RT [facility] Last Admin: 02/15/19 07:05 Dose: 0.5 mg Carvedilol (Coreg) 6.25 mg PO BID [facility] Last Admin: 02/15/19 08:54 Dose: 6.25 mg Citalopram Hydrobromide (Celexa) 40 mg PO DAILY [facility] Last Admin: 02/15/19 08:54 Dose: 40 mg Clonidine (Catapres) 0.1 mg PO Q4H PRN PRN Reason: sbp>180 Last Admin: 02/13/19 06:09 Dose: 0.1 mg Dextrose/Water (Dextrose 50%) 25 gm SLOW IVP PRN PRN PRN Reason: Hypoglycemia Enoxaparin Sodium (Lovenox) 40 mg SC 0900 [facility] Last Admin: 02/15/19 08:55 Dose: 40 mg Ferrous Sulfate (Feosol) 325 mg PO BID-[facility] Last Admin: 02/15/19 08:54 Dose: 325 mg Furosemide (Lasix) 40 mg SLOW IVP 0600,1400 [facility] Stop: 02/15/19 20:00 Last Admin: 02/15/19 15:38 Dose: 40 mg Furosemide (Lasix) 40 mg PO 0900,1400 [facility] Gabapentin (Neurontin) 300 mg PO BID [facility] Last Admin: 02/15/19 08:55 Dose: 300 mg Glucagon (Glucagon) 1 mg IM PRN PRN PRN Reason: Hypoglycemia Guaifenesin/Dextromethorphan (Robitussin Dm) 15 ml PO Q4H PRN PRN Reason: Cough Hydralazine HCl (Apresoline) 50 mg PO TID [facility] Last Admin: 02/15/19 15:38 Dose: 50 mg Dextrose/Water (D5w) 1,000 mls @ 0 mls/hr IV .Q0M PRN PRN Reason: Hypoglycemia Insulin Glargine 15 units/ (Miscellaneous Medication) 0.15 mls @ 0 mls/hr SC QAM [facility] Last Admin: 02/15/19 09:01 Dose: 0.15 mls Insulin Human Lispro (Humalog) 0 units SC .MODERATE SLIDING SC PRN PRN Reason: Moderate Correctional Scale Insulin Human Lispro (Humalog) 0 units SC .BEDTIME SLIDING SC PRN PRN Reason: Bedtime Correctional Scale Isosorbide Mononitrate (Imdur) 60 mg PO DAILY [facility] Isosorbide Mononitrate (Imdur Er) 30 mg PO ONE [facility] Levofloxacin (Levaquin) 500 mg PO 0600 [facility] Last Admin: 02/15/19 05:38 Dose: 500 mg Levothyroxine Sodium (Synthroid) 100 mcg PO 0600 [facility] Last Admin: 02/15/19 05:38 Dose: 100 mcg Losartan Potassium (Cozaar) 100 mg PO DAILY [facility] Last Admin: 02/15/19 08:53 Dose: 100 mg Nitroglycerin (Nitro-Bid 2% Ointment) 1 inch TOP BID [facility] Last Admin: 02/15/19 08:55 Dose: 1 inch Ondansetron HCl (Zofran) 4 mg IVP Q6H PRN PRN Reason: Nausea/Vomiting Pantoprazole Sodium (Protonix) 40 mg PO DAILY [facility] Last Admin: 02/15/19 08:54 Dose: 40 mg Polyethylene Glycol (Miralax) 17 gm PO DAILY [facility] Last Admin: 02/15/19 08:55 Dose: 17 gm Ropinirole HCl (Requip) 1 mg PO HS [facility] Last Admin: 02/14/19 20:30 Dose: 1 mg Senna/Docusate Sodium (Senokot S) 2 tab PO BID PRN PRN Reason: Constipation Tamsulosin HCl (Flomax) 0.4 mg PO HS [facility] Last Admin: 02/14/19 20:29 Dose: 0.4 mg Tramadol HCl (Ultram) 50 mg PO Q6H PRN PRN Reason: Moderate to Severe Pain (6-10) Last Admin: 02/13/19 21:24 Dose: 50 mg Vital Signs & Weight: Vital Signs Temp Pulse Pulse Pulse Pulse Resp BP 02/15/19 15:38 82 02/15/19 14:55 82 16 02/15/19 12:14 78 162/67 H 02/15/19 11:29 98.1 F 93 18 02/15/19 10:20 78 20 02/15/19 09:10 72 73 02/15/19 08:54 80 02/15/19 08:00 97.9 F 80 18 02/15/19 07:05 80 16 02/15/19 07:03 80 16 02/15/19 04:00 97.2 F L 74 18 BP BP BP Pulse Ox Pulse Ox Pulse Ox Pulse Ox 02/15/19 15:38 02/15/19 14:55 96 02/15/19 12:14 92 L 02/15/19 11:29 162/67 H 92 L 02/15/19 10:20 95 02/15/19 09:10 134/66 146/67 H 81 L 94 L 94 L 02/15/19 08:54 02/15/19 08:00 168/70 H 92 L 02/15/19 07:05 96 02/15/19 07:03 96 02/15/19 04:00 163/75 H Weight 287 lb - Physical Exam General: alert & oriented x3 HEENT: mucus membranes moist Neck: supple neck Cardiac: regular rate and rhythm, S1/S2 Lungs: decreased breath sounds, wheezes Neuro: cranial nerve 2-12 intact Abdomen: unremarkable - Labs Result Diagrams: 02/13/19 03:00 02/15/19 04:33 Troponin/CKMB CK-MB (CK-2) 3.8 ng/mL (0-6.6) 02/12/19 17:46 Troponin I 1.261 ng/mL (< 0.028) H* 02/13/19 17:20 - Telemetry Sinus rhythms and dysrhythmias: sinus rhythm - Assessment/Plan Assessment/Plan: 1. NSTEMI type 2 - possible demand ischemia from COPD exe; stable; cont. to monitor 2. Acute on Chronic Diastolic HF - stable; Lasix 40mg will be changed to PO BID ; on Coreg and Losartan 3. HTN - will increase Imdur to 60mg qd 4. COPD exe - stable with 2LNC 5. CKD 6. DM type 2 7. Sleep Apnea with Cpap at HS 8. BPH 9. Hypothyroidism MAR reviewed * Dr Muir's pt * Echo on 02/12/2019 with EF 55-60% and mild MR and TR Pt. seen and eval. by me. I agree with the A/P by the [facility].chest clear. RRR. No edema.
[2019-02-15] MEDS ORDERED: Isosorbide Mononitrate (ER) 30 MG TAB PO SCH (15:45)
--- NOTE | 2019-02-15 16:50 | PDOC.HOSPP ---
- Subjective Subjective: Feeling a little better today. Breathing a little better. Still has a cough. Does not feel like is voiding much. - Objective Vital Signs & Weight: Vital Signs (12 hours) Temp Pulse Pulse Pulse Pulse Resp BP 02/15/19 16:00 98.9 F 76 17 02/15/19 15:38 82 02/15/19 14:55 82 16 02/15/19 12:14 78 162/67 H 02/15/19 11:29 98.1 F 93 18 02/15/19 10:20 78 20 02/15/19 09:10 72 73 02/15/19 08:54 80 02/15/19 08:00 97.9 F 80 18 02/15/19 07:05 80 16 02/15/19 07:03 80 16 BP BP BP Pulse Ox Pulse Ox Pulse Ox Pulse Ox 02/15/19 16:00 162/68 H 92 L 02/15/19 15:38 02/15/19 14:55 96 02/15/19 12:14 92 L 02/15/19 11:29 162/67 H 92 L 02/15/19 10:20 95 02/15/19 09:10 134/66 146/67 H 81 L 94 L 94 L 02/15/19 08:54 02/15/19 08:00 168/70 H 92 L 02/15/19 07:05 96 02/15/19 07:03 96 Weight Weight 287 lb I&O: 02/14/19 02/15/19 02/16/19 06:59 06:59 06:59 Intake Total 720 1800 720 Output Total 1550 2250 1200 Balance -830 -842 -480 Result Diagrams: 02/13/19 03:00 02/15/19 04:33 Additional Labs: Accuchecks 02/15/19 02/15/19 02/14/19 10:50 06:03 21:14 POC Glucose 144 H 104 168 H 02/14/19 16:50 POC Glucose 108 Hospitalist ROS - Medication Medications: Active Medications Generic Name Dose Route Start Last Admin Trade Name Freq PRN Reason Stop Dose Admin Albuterol/Ipratropium 3 ml 02/13/19 07:00 02/15/19 14:55 Duoneb NEB 3 ml [id number] [facility] Administration Allopurinol 100 mg 02/13/19 09:00 02/15/19 08:52 Zyloprim PO 100 mg DAILY [facility] Administration Amlodipine Besylate 10 mg 02/13/19 09:00 02/15/19 08:54 Norvasc PO 10 mg DAILY [facility] Administration Aspirin 81 mg 02/13/19 09:00 02/15/19 08:54 Aspirin Chewable PO 81 mg DAILY [facility] Administration Budesonide 0.5 mg 02/13/19 06:30 02/15/19 07:05 Pulmicort Neb Solution NEB 0.5 mg BID-RT [facility] Administration Carvedilol 6.25 mg 02/14/19 21:00 02/15/19 08:54 Coreg PO 6.25 mg BID [facility] Administration Citalopram Hydrobromide 40 mg 02/13/19 09:00 02/15/19 08:54 Celexa PO 40 mg DAILY [facility] Administration Clonidine 0.1 mg 02/13/19 05:29 02/13/19 06:09 Catapres PO 0.1 mg Q4H PRN Administration sbp>180 Enoxaparin Sodium 40 mg 02/13/19 09:00 02/15/19 08:55 Lovenox SC 40 mg 0900 [facility] Administration Ferrous Sulfate 325 mg 02/13/19 08:00 02/15/19 16:44 Feosol PO 325 mg BID-WM [facility] Administration Furosemide 40 mg 02/13/19 06:00 02/15/19 15:38 Lasix SLOW IVP 02/15/19 20:00 40 mg 0600,1400 [facility] Administration Gabapentin 300 mg 02/13/19 09:00 02/15/19 08:55 Neurontin PO 300 mg BID [facility] Administration Hydralazine HCl 50 mg 02/13/19 09:00 02/15/19 15:38 Apresoline PO 50 mg TID [facility] Administration Insulin Glargine 15 units/ 0.15 mls @ 0 mls/hr 02/13/19 09:00 02/15/19 09:01 Miscellaneous Medication SC 0.15 mls QAM [facility] Administration Isosorbide Mononitrate 30 mg 02/15/19 15:45 02/15/19 16:44 Imdur Er PO 02/15/19 17:45 30 mg NOW [facility] Administration Levofloxacin 500 mg 02/15/19 06:00 02/15/19 05:38 Levaquin PO 500 mg 0600 [facility] Administration Levothyroxine Sodium 100 mcg 02/13/19 06:00 02/15/19 05:38 Synthroid PO 100 mcg 0600 [facility] Administration Losartan Potassium 100 mg 02/13/19 09:00 02/15/19 08:53 Cozaar PO 100 mg DAILY [facility] Administration Nitroglycerin 1 inch 02/13/19 21:00 02/15/19 08:55 Nitro-Bid 2% Ointment TOP 1 inch BID [facility] Administration Pantoprazole Sodium 40 mg 02/13/19 09:00 02/15/19 08:54 Protonix PO 40 mg DAILY [facility] Administration Polyethylene Glycol 17 gm 02/13/19 09:00 02/15/19 08:55 Miralax PO 17 gm DAILY [facility] Administration Ropinirole HCl 1 mg 02/13/19 21:00 02/14/19 20:30 Requip PO 1 mg HS [facility] Administration Tamsulosin HCl 0.4 mg 02/13/19 21:00 02/14/19 20:29 Flomax PO 0.4 mg HS [facility] Administration Tramadol HCl 50 mg 02/13/19 00:17 02/13/19 21:24 Ultram PO 50 mg Q6H PRN Administration Moderate to Severe Pain (6-10) - Exam General Appearance: NAD, awake alert Heart: RRR, no murmur, no gallops, no rubs, normal peripheral pulses Respiratory: rales (Scattered bilateral.) Gastrointestinal: soft, non-tender, non-distended, normal bowel sounds, no palpable masses, no hepatomegaly, no splenomegaly, no bruit Extremities: 1+ LE edema Musculoskeletal: normal tone Psychiatric: normal affect, normal behavior, A&O x 3 Hosp A/P (1) CHF (congestive heart failure) Code(s): I50.9 - HEART FAILURE, UNSPECIFIED Status: Acute Qualifiers: Heart failure type: diastolic Heart failure chronicity: acute on chronic Qualified Code(s): I50.33 - Acute on chronic diastolic (congestive) heart failure (2) CKD (chronic kidney disease), stage IV Code(s): N18.4 - CHRONIC KIDNEY DISEASE, STAGE 4 (SEVERE) Status: Chronic (3) BPH (benign prostatic hyperplasia) Code(s): N40.0 - BENIGN PROSTATIC HYPERPLASIA WITHOUT LOWER URINRY TRACT SYMP Status: Chronic (4) COPD (chronic obstructive pulmonary disease) Status: Chronic (5) Diabetes 1.5, managed as type 2 Code(s): E13.9 - OTHER SPECIFIED DIABETES MELLITUS WITHOUT COMPLICATIONS Status: Acute (6) Hyperlipidemia Code(s): E78.5 - HYPERLIPIDEMIA, UNSPECIFIED Status: Chronic (7) Hypertension Code(s): I10 - ESSENTIAL (PRIMARY) HYPERTENSION Status: Chronic (8) Restless leg syndrome Status: Chronic (9) Sleep apnea Code(s): G47.30 - SLEEP APNEA, UNSPECIFIED Status: Chronic (10) Myocardial infarction Code(s): I21.9 - ACUTE MYOCARDIAL INFARCTION, UNSPECIFIED Status: Acute Qualifiers: Myocardial infarction type: type 2 Qualified Code(s): I21.A1 - Myocardial infarction type 2 (11) Acute respiratory failure with hypoxia Code(s): J96.01 - ACUTE RESPIRATORY FAILURE WITH HYPOXIA Status: Acute (12) Hypothyroidism Code(s): E03.9 - HYPOTHYROIDISM, UNSPECIFIED Status: Chronic (13) Bronchitis Code(s): J40 - BRONCHITIS, NOT SPECIFIED ACUTE OR CHRONIC Status: Acute (14) Morbid obesity Code(s): E66.01 - MORBID (SEVERE) OBESITY DUE TO EXCESS CALORIES Status: Acute - Plan Echo with EF 50%. Diastolic failure. Has pulm edema and elevated BNP consistent with CHF. Diuresis. Continue home meds (ie Coreg). Card consult appreciated. Imdur increased. Feeling better in general. Weaned down to [place] oxygen. Ambulates modestly at home with a walker. Bad hip and bad ankle on the left. Resuming home meds for DM. Diabetic diet, accuchecks and SSI. Nebs, home meds for COPD. Levaquin for associated bronchitis.
[2019-02-15] MEDS: traMADol HCl 50 MG TAB PO PRN (19:57)
[2019-02-15] MEDS: rOPINIRole HCl 1 MG TAB PO SCH (20:00)
[2019-02-15] MEDS: Tamsulosin HCl 0.4 MG CAP PO SCH (20:00)
[2019-02-16] MEDS: cloNIDine 0.1 MG TAB PO PRN (04:54)
[2019-02-16] MEDS: Levothyroxine Sodium 100 MCG TAB PO SCH (05:04)
[2019-02-16 05:10] LABS: #Eosinphils 0.6 thou/uL (0.0-0.7); #Lymphocytes 1.6 thou/uL (1.20-3.40); #Monocytes 1.7 thou/uL (0.11-0.59); #Neutrophils 7.6 thou/uL (1.40-6.50); %Basophils 0.4 % (0.0-1.0); %Eosinophils 5.4 % (0.0-10.0); %Lymphocytes 13.5 % (21.0-51.0); %Monocytes 14.9 % (0.0-10.0); %Neutrophils 65.7 % (42.0-75.0); Hemoglobin 10.6 g/dL (14.0-18.0); Mean Corpuscular HGB CONC 31.8 g/dL (32.0-36.0); Mean Corpuscular Hemoglobin 30.9 pg (27.0-31.0); Mean Corpuscular Volume 97.1 fL (78.0-98.0); Platelet Count 191 thou/uL (130-400); RBC Distribution Width 12.4 % (11.5-14.5); Red Blood Cell (RBC) Count 3.44 mill/uL (4.70-6.10); White Blood Cell (WBC) Count 11.6 thou/uL (4.8-10.8)
[2019-02-16 05:38] LABS: Anion Gap 14 mmol/L (10-20); BUN (Urea Nitrogen) 41 mg/dL (8.4-25.7); Calc. Creatinine Clearance 55 mL/min (70-130); Calcium 7.8 mg/dL (7.8-10.44); Carbon Dioxide 32 mmol/L (23-31); Chloride 101 mmol/L (98-107); Estimated GFR-MDRD 35; Glucose 100 mg/dL (83-110); Potassium 3.9 mmol/L (3.5-5.1); Sodium 143 mmol/L (136-145)
[2019-02-16] MEDS: Budesonide 0.5 MG/2 ML NEB NEB SCH ×2 (06:48→19:04)
[2019-02-16] MEDS: Gabapentin 300 MG CAP PO SCH ×2 (08:07→20:49)
[2019-02-16] MEDS: Citalopram 20 MG TAB PO SCH (08:07)
[2019-02-16] MEDS: Amlodipine 10 MG TAB PO SCH (08:07)
[2019-02-16] MEDS: Ferrous Sulfate 325 MG TAB PO SCH ×2 (08:08→16:33)
[2019-02-16] MEDS: Nitroglycerin 2% Ointment 1 INCH/1 GM Packet TOP SCH ×2 (08:08→20:50)
[2019-02-16] MEDS: Aspirin Chewable 81 MG TAB PO SCH (08:08)
[2019-02-16] MEDS: Allopurinol 100 MG TAB PO SCH (08:08)
[2019-02-16] MEDS: Carvedilol 3.125 MG TAB PO SCH (08:09)
[2019-02-16] MEDS: Enoxaparin Sodium 40 MG/0.4 ML SYRINGE SC SCH (08:09)
[2019-02-16] MEDS: Insulin Glargine 15 UNITS in Pre-Filled Syringe 1 EACH SC SCH (08:09)
[2019-02-16] MEDS: hydrALAZINE 25 MG TAB PO SCH ×3 (08:09→20:50)
[2019-02-16] MEDS: Guaifenesin DM 100-10/5 ML UDCUP PO PRN ×2 (08:10→21:25)
[2019-02-16] MEDS: Polyethylene Glycol 3350 17 GM Packet PO SCH (08:10)
[2019-02-16] MEDS: traMADol HCl 50 MG TAB PO PRN ×2 (08:11→21:26)
[2019-02-16] MEDS: Losartan 25 MG TAB PO SCH (08:13)
[2019-02-16] MEDS ORDERED: Furosemide 40 MG TAB PO SCH (09:00)
--- NOTE | 2019-02-16 12:48 | PDOC.HOSPP ---
- Subjective Subjective: breathing is improving. Getting closer to baseline. present. Says she can tell he is much better. He reports some pain in the left foot area. Concerned it might have been injured when EMS got him up initially at home. - Objective Vital Signs & Weight: Vital Signs (12 hours) Temp Pulse Resp BP BP Pulse Ox 02/16/19 10:14 80 16 02/16/19 08:09 84 02/16/19 08:07 84 02/16/19 08:00 98 F 73 18 160/72 H 94 L 02/16/19 06:48 84 16 02/16/19 04:55 97.4 F L 76 20 182/83 H 02/16/19 04:54 182/83 H Weight Weight 274 lb 9.6 oz I&O: 02/15/19 02/16/19 02/17/19 06:59 06:59 06:59 Intake Total 1800 960 Output Total 2250 1550 Balance -450 -590 Result Diagrams: 02/16/19 04:42 02/16/19 04:42 Additional Labs: Accuchecks 02/16/19 02/16/19 02/15/19 10:27 05:43 20:05 POC Glucose 135 H 123 H 153 H 02/15/19 16:39 POC Glucose 123 H Hospitalist ROS - Medication Medications: Active Medications Generic Name Dose Route Start Last Admin Trade Name Freq PRN Reason Stop Dose Admin Albuterol/Ipratropium 3 ml 02/13/19 07:00 02/16/19 10:14 Duoneb NEB 3 ml [id number] [facility] Administration Allopurinol 100 mg 02/13/19 09:00 02/16/19 08:08 Zyloprim PO 100 mg DAILY [facility] Administration Amlodipine Besylate 10 mg 02/13/19 09:00 02/16/19 08:07 Norvasc PO 10 mg DAILY [facility] Administration Aspirin 81 mg 02/13/19 09:00 02/16/19 08:08 Aspirin Chewable PO 81 mg DAILY [facility] Administration Budesonide 0.5 mg 02/13/19 06:30 02/16/19 06:48 Pulmicort Neb Solution NEB 0.5 mg BID-RT [facility] Administration Citalopram Hydrobromide 40 mg 02/13/19 09:00 02/16/19 08:07 Celexa PO 40 mg DAILY [facility] Administration Clonidine 0.1 mg 02/13/19 05:29 02/16/19 04:54 Catapres PO 0.1 mg Q4H PRN Administration sbp>180 Enoxaparin Sodium 40 mg 02/13/19 09:00 02/16/19 08:09 Lovenox SC 40 mg 0900 [facility] Administration Ferrous Sulfate 325 mg 02/13/19 08:00 02/16/19 08:08 Feosol PO 325 mg BID-WM [facility] Administration Gabapentin 300 mg 02/13/19 09:00 02/16/19 08:07 Neurontin PO 300 mg BID [facility] Administration Guaifenesin/Dextromethorphan 15 ml 02/13/19 00:17 02/16/19 08:10 Robitussin Dm PO 15 ml Q4H PRN Administration Cough Hydralazine HCl 50 mg 02/13/19 09:00 02/16/19 08:09 Apresoline PO 50 mg TID [facility] Administration Insulin Glargine 15 units/ 0.15 mls @ 0 mls/hr 02/13/19 09:00 02/16/19 08:09 Miscellaneous Medication SC 0.15 mls QAM [facility] Administration Isosorbide Mononitrate 60 mg 02/16/19 09:00 02/16/19 08:07 Imdur PO 60 mg DAILY [facility] Administration Levofloxacin 500 mg 02/15/19 06:00 02/16/19 05:03 Levaquin PO 500 mg 0600 [facility] Administration Levothyroxine Sodium 100 mcg 02/13/19 06:00 02/16/19 05:04 Synthroid PO 100 mcg 0600 [facility] Administration Losartan Potassium 100 mg 02/13/19 09:00 02/16/19 08:13 Cozaar PO 100 mg DAILY [facility] Administration Nitroglycerin 1 inch 02/13/19 21:00 02/16/19 08:08 Nitro-Bid 2% Ointment TOP 1 inch BID [facility] Administration Pantoprazole Sodium 40 mg 02/13/19 09:00 02/16/19 08:08 Protonix PO 40 mg DAILY [facility] Administration Polyethylene Glycol 17 gm 02/13/19 09:00 02/16/19 08:10 Miralax PO 17 gm DAILY [facility] Administration Ropinirole HCl 1 mg 02/13/19 21:00 02/15/19 20:00 Requip PO 1 mg HS [facility] Administration Tamsulosin HCl 0.4 mg 02/13/19 21:00 02/15/19 20:00 Flomax PO 0.4 mg HS [facility] Administration Tramadol HCl 50 mg 02/13/19 00:17 02/16/19 08:11 Ultram PO 50 mg Q6H PRN Administration Moderate to Severe Pain (6-10) - Exam General Appearance: NAD, awake alert General - other findings: Obese. [place] oxygen. Speaking well. Heart: RRR, no murmur, no gallops, no rubs, normal peripheral pulses Respiratory: rales (Mild, scattered. Improved.), wheezes (scattered, bilateral. Improved.) Gastrointestinal: soft, non-tender, non-distended, normal bowel sounds, no palpable masses, no hepatomegaly, no splenomegaly, no bruit Extremities: no cyanosis, no clubbing, no edema Musculoskeletal: generalized weakness Psychiatric: normal affect, normal behavior, A&O x 3 Hosp A/P (1) CHF (congestive heart failure) Code(s): I50.9 - HEART FAILURE, UNSPECIFIED Status: Acute Qualifiers: Heart failure type: diastolic Heart failure chronicity: acute on chronic Qualified Code(s): I50.33 - Acute on chronic diastolic (congestive) heart failure (2) CKD (chronic kidney disease), stage IV Code(s): N18.4 - CHRONIC KIDNEY DISEASE, STAGE 4 (SEVERE) Status: Chronic (3) BPH (benign prostatic hyperplasia) Code(s): N40.0 - BENIGN PROSTATIC HYPERPLASIA WITHOUT LOWER URINRY TRACT SYMP Status: Chronic (4) COPD (chronic obstructive pulmonary disease) Status: Chronic (5) Diabetes 1.5, managed as type 2 Code(s): E13.9 - OTHER SPECIFIED DIABETES MELLITUS WITHOUT COMPLICATIONS Status: Acute (6) Hyperlipidemia Code(s): E78.5 - HYPERLIPIDEMIA, UNSPECIFIED Status: Chronic (7) Hypertension Code(s): I10 - ESSENTIAL (PRIMARY) HYPERTENSION Status: Chronic (8) Restless leg syndrome Status: Chronic (9) Sleep apnea Code(s): G47.30 - SLEEP APNEA, UNSPECIFIED Status: Chronic (10) Myocardial infarction Code(s): I21.9 - ACUTE MYOCARDIAL INFARCTION, UNSPECIFIED Status: Acute Qualifiers: Myocardial infarction type: type 2 Qualified Code(s): I21.A1 - Myocardial infarction type 2 (11) Acute respiratory failure with hypoxia Code(s): J96.01 - ACUTE RESPIRATORY FAILURE WITH HYPOXIA Status: Acute (12) Hypothyroidism Code(s): E03.9 - HYPOTHYROIDISM, UNSPECIFIED Status: Chronic (13) Left foot pain Code(s): M79.672 - PAIN IN LEFT FOOT Status: Acute - Plan Hx of CHF. Echo here with preserved EF, most consistent with diastolic dysfunction. Has pulm edema and elevated BNP consistent with CHF. Diuresis. Continue home meds (ie Coreg). Increasing coreg dose. BP high and HR will tolerate it. Card consult appreciated. Feeling better in general. Weaned down to [place] oxygen off BIPAP. Feels much closer to baseline breathing. Exam improved. Repeat CXR. Holding diuretics as his BUN, Creat are elevated today. Continue nebs for COPD. Trying to avoid steroids. Resp viral panel. Continue Levaquin. Ambulates modestly at home with a walker. Bad hip and bad ankle on the left. xray left foot. Resuming home meds for DM. Diabetic diet, accuchecks and SSI.
--- NOTE | 2019-02-16 13:06 | RAD ---
EXAM: Single view of the chest HISTORY: CHF COMPARISON: 02/12/2019 FINDINGS: Single view of the chest shows an enlarged but stable cardiomediastinal silhouette. There i s no evidence of consolidation, mass, or pleural effusion. The bones are unremarkable. IMPRESSION: No evidence of acute cardiopulmonary disease
--- NOTE | 2019-02-16 13:06 | RAD ---
EXAM: 3 views of the left foot HISTORY: Foot pain COMPARISON: None FINDINGS: 3 views of the left foot shows no evidence of acute fracture or dislocation. No soft tissue swelling is seen. Mild degenerative changes are seen in the mid foot and great toe. IMPRESSION: No evidence of acute osseous abnormality.
--- NOTE | 2019-02-16 17:19 | PDOC.CPN ---
- Subjective Date: 02/16/19 Time: 17:21 Interval history: The pt seen and examined. No overnight events. No cardiac complaints. - Objective Allergies/Adverse Reactions: Allergies Allergy/AdvReac Type Severity Reaction Status Date / Time codeine Allergy Hives Verified 02/13/19 00:19 Visit Medications: Current Medications Acetaminophen (Tylenol) 650 mg PO Q4H PRN PRN Reason: Headache/Fever/Mild Pain (1-3) Albuterol/Ipratropium (Duoneb) 3 ml NEB [id number] SCH Last Admin: 02/16/19 14:21 Dose: 3 ml Allopurinol (Zyloprim) 100 mg PO DAILY [facility] Last Admin: 02/16/19 08:08 Dose: 100 mg Amlodipine Besylate (Norvasc) 10 mg PO DAILY [facility] Last Admin: 02/16/19 08:07 Dose: 10 mg Aspirin (Aspirin Chewable) 81 mg PO DAILY [facility] Last Admin: 02/16/19 08:08 Dose: 81 mg Bisacodyl (Dulcolax) 10 mg OR DAILYPRN PRN PRN Reason: Constipation Budesonide (Pulmicort Neb Solution) 0.5 mg NEB BID-RT [facility] Last Admin: 02/16/19 06:48 Dose: 0.5 mg Carvedilol (Coreg) 12.5 mg PO BID [facility] Citalopram Hydrobromide (Celexa) 40 mg PO DAILY [facility] Last Admin: 02/16/19 08:07 Dose: 40 mg Clonidine (Catapres) 0.1 mg PO Q4H PRN PRN Reason: sbp>180 Last Admin: 02/16/19 04:54 Dose: 0.1 mg Dextrose/Water (Dextrose 50%) 25 gm SLOW IVP PRN PRN PRN Reason: Hypoglycemia Enoxaparin Sodium (Lovenox) 40 mg SC 0900 [facility] Last Admin: 02/16/19 08:09 Dose: 40 mg Ferrous Sulfate (Feosol) 325 mg PO BID-[facility] Last Admin: 02/16/19 16:33 Dose: 325 mg Gabapentin (Neurontin) 300 mg PO BID [facility] Last Admin: 02/16/19 08:07 Dose: 300 mg Glucagon (Glucagon) 1 mg IM PRN PRN PRN Reason: Hypoglycemia Guaifenesin/Dextromethorphan (Robitussin Dm) 15 ml PO Q4H PRN PRN Reason: Cough Last Admin: 02/16/19 08:10 Dose: 15 ml Hydralazine HCl (Apresoline) 50 mg PO TID [facility] Last Admin: 02/16/19 16:33 Dose: 50 mg Dextrose/Water (D5w) 1,000 mls @ 0 mls/hr IV .Q0M PRN PRN Reason: Hypoglycemia Insulin Glargine 15 units/ (Miscellaneous Medication) 0.15 mls @ 0 mls/hr SC QAM [facility] Last Admin: 02/16/19 08:09 Dose: 0.15 mls Insulin Human Lispro (Humalog) 0 units SC .MODERATE SLIDING SC PRN PRN Reason: Moderate Correctional Scale Insulin Human Lispro (Humalog) 0 units SC .BEDTIME SLIDING SC PRN PRN Reason: Bedtime Correctional Scale Isosorbide Mononitrate (Imdur) 60 mg PO DAILY [facility] Last Admin: 02/16/19 08:07 Dose: 60 mg Levofloxacin (Levaquin) 500 mg PO 0600 [facility] Last Admin: 02/16/19 05:03 Dose: 500 mg Levothyroxine Sodium (Synthroid) 100 mcg PO 0600 [facility] Last Admin: 02/16/19 05:04 Dose: 100 mcg Losartan Potassium (Cozaar) 100 mg PO DAILY [facility] Last Admin: 02/16/19 08:13 Dose: 100 mg Nitroglycerin (Nitro-Bid 2% Ointment) 1 inch TOP BID [facility] Last Admin: 02/16/19 08:08 Dose: 1 inch Ondansetron HCl (Zofran) 4 mg IVP Q6H PRN PRN Reason: Nausea/Vomiting Pantoprazole Sodium (Protonix) 40 mg PO DAILY [facility] Last Admin: 02/16/19 08:08 Dose: 40 mg Polyethylene Glycol (Miralax) 17 gm PO DAILY [facility] Last Admin: 02/16/19 08:10 Dose: 17 gm Ropinirole HCl (Requip) 1 mg PO HS [facility] Last Admin: 02/15/19 20:00 Dose: 1 mg Senna/Docusate Sodium (Senokot S) 2 tab PO BID PRN PRN Reason: Constipation Tamsulosin HCl (Flomax) 0.4 mg PO HS [facility] Last Admin: 02/15/19 20:00 Dose: 0.4 mg Tramadol HCl (Ultram) 50 mg PO Q6H PRN PRN Reason: Moderate to Severe Pain (6-10) Last Admin: 02/16/19 08:11 Dose: 50 mg Vital Signs & Weight: Vital Signs Temp Pulse Resp BP Pulse Ox 02/16/19 16:33 84 02/16/19 16:00 97.9 F 64 17 134/63 96 02/16/19 14:21 84 16 02/16/19 12:00 97.5 F L 74 19 158/70 H 94 L 02/16/19 10:14 80 16 02/16/19 08:09 84 02/16/19 08:07 84 02/16/19 08:00 98 F 73 18 160/72 H 94 L 02/16/19 06:48 84 16 Weight 274 lb 9.6 oz - Physical Exam General: alert & oriented x3 HEENT: mucus membranes moist Neck: supple neck Cardiac: regular rate and rhythm, S1/S2 Lungs: decreased breath sounds, wheezes Neuro: cranial nerve 2-12 intact Extremities: no edema - Labs Result Diagrams: 02/16/19 04:42 02/16/19 04:42 Troponin/CKMB CK-MB (CK-2) 3.8 ng/mL (0-6.6) 02/12/19 17:46 Troponin I 1.261 ng/mL (< 0.028) H* 02/13/19 17:20 - Telemetry Sinus rhythms and dysrhythmias: sinus rhythm - Assessment/Plan Assessment/Plan: 1. NSTEMI type 2 - possible demand ischemia from COPD exe; stable; cont. to monitor 2. Acute on Chronic Diastolic HF - on Coreg and Losartan; Lasix 40mg is on hold due to elevated Cr level. 3. HTN - stable with current med 4. COPD exe - stable with 2LNC 5. CKD 6. DM type 2 7. Sleep Apnea with Cpap at HS 8. BPH 9. Hypothyroidism MAR reviewed * Dr Muir's pt * Echo on 02/12/2019 with EF 55-60% and mild MR and TR Pt. seen and eval. by me. I agree with the A/P by the DRIER TENDER.[email or web address]
[2019-02-16] MEDS: Tamsulosin HCl 0.4 MG CAP PO SCH (20:49)
[2019-02-16] MEDS: rOPINIRole HCl 1 MG TAB PO SCH (20:49)
[2019-02-16] MEDS: Carvedilol 25 MG TAB PO SCH (20:49)
[2019-02-17 05:12] LABS: Anion Gap 11 mmol/L (10-20); BUN (Urea Nitrogen) 47 mg/dL (8.4-25.7); Calc. Creatinine Clearance 58 mL/min (70-130); Calcium 7.7 mg/dL (7.8-10.44); Carbon Dioxide 33 mmol/L (23-31); Chloride 101 mmol/L (98-107); Estimated GFR-MDRD 37; Glucose 102 mg/dL (83-110); Potassium 4.1 mmol/L (3.5-5.1); Sodium 141 mmol/L (136-145)
[2019-02-17] MEDS: Levothyroxine Sodium 100 MCG TAB PO SCH (05:51)
[2019-02-17] MEDS: Budesonide 0.5 MG/2 ML NEB NEB SCH ×2 (06:49→18:34)
[2019-02-17] MEDS: Ferrous Sulfate 325 MG TAB PO SCH ×2 (09:29→17:20)
[2019-02-17] MEDS: Allopurinol 100 MG TAB PO SCH (09:29)
[2019-02-17] MEDS: Amlodipine 10 MG TAB PO SCH (09:29)
[2019-02-17] MEDS: Enoxaparin Sodium 40 MG/0.4 ML SYRINGE SC SCH (09:32)
[2019-02-17] MEDS: Citalopram 20 MG TAB PO SCH (09:32)
[2019-02-17] MEDS: Aspirin Chewable 81 MG TAB PO SCH (09:32)
[2019-02-17] MEDS: Furosemide 40 MG TAB PO SCH ×2 (09:33→14:40)
[2019-02-17] MEDS: Insulin Glargine 15 UNITS in Pre-Filled Syringe 1 EACH SC SCH (09:33)
[2019-02-17] MEDS: Gabapentin 300 MG CAP PO SCH (09:33)
[2019-02-17] MEDS: Nitroglycerin 2% Ointment 1 INCH/1 GM Packet TOP SCH (09:34)
[2019-02-17] MEDS: Losartan 25 MG TAB PO SCH (09:34)
[2019-02-17] MEDS: Carvedilol 25 MG TAB PO SCH (09:36)
[2019-02-17] MEDS ORDERED: Carvedilol 6.25 MG TAB PO SCH ×2 (10:00→17:00)
[2019-02-17] MEDS: Polyethylene Glycol 3350 17 GM Packet PO SCH (10:17)
[2019-02-17] MEDS: hydrALAZINE 25 MG TAB PO SCH ×2 (11:23→14:42)
[2019-02-17 16:04] VITALS: TEMP 98.4
[2019-02-17 17:22] VITALS: BP 136/63
== END 2019-02-17 19:45 | disposition home or self-care (01) | DRG 280 ==
LOC: ERS 17:18 → ERHOLD 19:26 → 2NO 02-13 16:21
PROVIDERS: ADMIT Internal Medicine; ATTEND Internal Medicine
DX: I13.0 Hypertensive heart and chronic kidney disease with heart failure and stage 1 through stage 4 chronic kidney disease, or unspecified chronic kidney disease (principal); J18.9 Pneumonia, unspecified organism; I21.A1 Myocardial infarction type 2; J96.01 Acute respiratory failure with hypoxia; I50.33 Acute on chronic diastolic (congestive) heart failure; J44.1 Chronic obstructive pulmonary disease with (acute) exacerbation; I16.1 Hypertensive emergency; N18.4 Chronic kidney disease, stage 4 (severe); Z68.41 Body mass index [BMI] 40.0-44.9, adult; E78.5 Hyperlipidemia, unspecified; N40.0 Benign prostatic hyperplasia without lower urinary tract symptoms; G25.81 Restless legs syndrome; E78.00 Pure hypercholesterolemia, unspecified; E11.22 Type 2 diabetes mellitus with diabetic chronic kidney disease; E66.01 Morbid (severe) obesity due to excess calories; J44.9 Chronic obstructive pulmonary disease, unspecified; G47.33 Obstructive sleep apnea (adult) (pediatric); Z96.642 Presence of left artificial hip joint; Z90.49 Acquired absence of other specified parts of digestive tract; Z79.4 Long term (current) use of insulin
CPT/HCPCS: 36415; 36416; 71045; 80048; 80053; 82550; 82553; 82805; 83880; 84443; 84484; 85025; 87040; 87633; 93005; 93306; 94640; 94644; 94660; 96365; 96367; 96372; 96375; J0360; J0456; J0696; J1650; J1815; J1940; J1956; J2920; J2930; J7620; J7626

== ENCOUNTER 2019-07-29 12:33 | Outpatient (CLI) | payer MEDICARE ==
--- NOTE | 2019-07-29 18:21 | CT ---
LEFT LOWER EXTREMITY CT SCAN WITHOUT IV CONTRAST: History: History of open reduction and internal fixation. Comparison: Plain x-rays 04-27-2019, prior CT 10-07-18. FINDINGS: Evidence for a healing intertrochanteric and subtrochanteric fracture of the left femur with bony natividad maxx present, but incomplete union noted involving the full thickness somewhat oblique fracture sound effects person iorly through the subtrochanteric region of the femur. There is very extensive lucency around both of the screws in the femoral head region with up to 4-5 mm of bony lucency around each screw, the large st screw as well as the smaller screw. The distal most portion of the larger screw appears to be comp letely uncovered by bony cortex at the level of the superior lateral femoral head. Both the screws, p articularly the larger caliber screw, appears to be in a much more cranial and lateral position than on prior post ORIF study of 10-09-18. 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 IMPRESSION: Severe loosening of both internal fixation screws within the left femoral head with abnormal change i n position of these screws when compared to the immediate post-operative plain film examination of . Evidence for some bony callus, but incomplete union of the more vertically oriented posterior fracture through the subtrochanteric region of the left femur. The larger caliber screw is totally un covered by bone cranially and superolaterally. POS: RRE
== END 2019-07-29 12:34 | disposition home or self-care (01) ==
LOC: SCSCT 12:33
PROVIDERS: ATTEND Orthopaedic Surgery
DX: S72.22XK Displaced subtrochanteric fracture of left femur, subsequent encounter for closed fracture with nonunion (principal); Z98.890 Other specified postprocedural states

== ENCOUNTER 2019-09-06 06:36 | Outpatient (CLI) | payer MEDICARE, OTHER ==
[2019-09-06 14:09] LABS: #Eosinphils 0.8 thou/uL (0.0-0.7); #Lymphocytes 1.2 thou/uL (1.20-3.40); #Monocytes 1.1 thou/uL (0.11-0.59); #Neutrophils 5.9 thou/uL (1.40-6.50); %Basophils 0.4 % (0.0-1.0); %Lymphocytes 13.4 % (21.0-51.0); %Monocytes 11.7 % (0.0-10.0); %Neutrophils 65.4 % (42.0-75.0); Hemoglobin 9.6 g/dL (14.0-18.0); Mean Corpuscular HGB CONC 32.7 g/dL (32.0-36.0); Mean Corpuscular Volume 97.8 fL (78.0-98.0); Mean Platelet Volume 8.2 fL (7.4-10.4); Platelet Count 184 thou/uL (130-400); RBC Distribution Width 12.5 % (11.5-14.5); Red Blood Cell (RBC) Count 3.01 mill/uL (4.70-6.10)
[2019-09-06 14:39] LABS: Anion Gap 13 mmol/L (10-20); BUN (Urea Nitrogen) 34 mg/dL (8.4-25.7); Calc. Creatinine Clearance 0 mL/min (70-130); Calcium 7.8 mg/dL (7.8-10.44); Carbon Dioxide 26 mmol/L (23-31); Chloride 107 mmol/L (98-107); Estimated GFR-MDRD 30; Glucose 109 mg/dL (83-110); Potassium 4.8 mmol/L (3.5-5.1); Sodium 141 mmol/L (136-145)
[2019-09-07 14:12] LABS: SARS-CoV-2 MS2 Positive; SARS-CoV-2 N Gene Negative; SARS-CoV-2 S Gene Negative; SARS-CoV-2 orf1ab Negative
== END 2019-09-06 06:37 | disposition home or self-care (01) ==
LOC: LABBT 06:36
PROVIDERS: ATTEND Internal Medicine Cardiovascular Disease
DX: Z01.812 Encounter for preprocedural laboratory examination (principal); Z11.59 Encounter for screening for other viral diseases; I25.10 Atherosclerotic heart disease of native coronary artery without angina pectoris
CPT/HCPCS: 80048; 85025; U0003; 87635

== ENCOUNTER 2019-09-11 08:04 | Emergency (ER) | payer MEDICARE, OTHER ==
[2019-09-11 08:30] LABS: #Basophils 0.1 thou/uL (0.0-0.2); #Eosinphils 0.4 thou/uL (0.0-0.7); #Lymphocytes 1.1 thou/uL (1.20-3.40); #Monocytes 1.6 thou/uL (0.11-0.59); #Neutrophils 12.8 thou/uL (1.40-6.50); %Basophils 0.4 % (0.0-1.0); %Eosinophils 2.3 % (0.0-10.0); %Lymphocytes 6.6 % (21.0-51.0); %Monocytes 10.2 % (0.0-10.0); %Neutrophils 80.4 % (42.0-75.0); Hemoglobin 9.1 g/dL (14.0-18.0); Mean Corpuscular HGB CONC 31.6 g/dL (32.0-36.0); Mean Corpuscular Hemoglobin 30.6 pg (27.0-31.0); Mean Platelet Volume 8.2 fL (7.4-10.4); Platelet Count 215 thou/uL (130-400); RBC Distribution Width 12.7 % (11.5-14.5); Red Blood Cell (RBC) Count 2.98 mill/uL (4.70-6.10); White Blood Cell (WBC) Count 15.9 thou/uL (4.8-10.8)
[2019-09-11 08:52] LABS: ALT (SGPT) 17 U/L (8-55); AST (SGOT) 20 U/L (5-34); Albumin 3.6 g/dL (3.4-4.8); Alkaline Phosphatase 137 U/L (40-110); Anion Gap 13 mmol/L (10-20); BUN (Urea Nitrogen) 40 mg/dL (8.4-25.7); Bilirubin, Total 0.5 mg/dL (0.2-1.2); CK (CPK) 65 U/L (30-200); Calc. Creatinine Clearance 0 mL/min (70-130); Calcium 8.5 mg/dL (7.8-10.44); Carbon Dioxide 25 mmol/L (23-31); Chloride 108 mmol/L (98-107); Estimated GFR-MDRD 29; Globulin 2.7 g/dL (2.4-3.5); Glucose 126 mg/dL (83-110); Potassium 4.7 mmol/L (3.5-5.1); Protein, Total 6.3 g/dL (5.8-8.1); Sodium 141 mmol/L (136-145)
[2019-09-11] MEDS ORDERED: Magnesium 2 GM/50 ML BAG (IN WATER) ONE (09:09)
[2019-09-11] MEDS ORDERED: Labetalol HCl 100 MG/20 ML VIAL ONE (09:09)
[2019-09-11] MEDS ORDERED: methylPREDNISolone Sod Succ/PF 125 MG/2 ML VIAL ONE (09:09)
[2019-09-11 09:13] LABS: CKMB 2.3 ng/mL (0-6.6)
--- NOTE | 2019-09-11 09:52 | RAD ---
PORTABLE CHEST: HISTORY: Dyspnea. COMPARISON: A 02/18/2019 exam. FINDINGS: Heart size is enlarged. Increased parahilar lung markings are somewhat similar to the previous exami nation. Some of the changes in the right base are increased. Overall, I feel this is a relatively s table appearance to the chest. IMPRESSION: Cardiomegaly with interstitial alveolar opacities fairly similar to previous exams. Some of the righ t parahilar opacity is less prominent and perhaps some of the changes in the right base are slightly more prominent. I am not certain what portion of these lung changes are just entirely chronic or a m anifestation of recurrent congestive heart failure-type change. POS: LENNY
[2019-09-11] MEDS ORDERED: cefTRIAXone\\ROCEPHIN 2 GM VIAL ONE (10:43)
[2019-09-11] MEDS ORDERED: Azithromycin 500 MG VIAL ONE (10:43)
[2019-09-11] MEDS ORDERED: Albuterol Sulfate 2.5 mg/3 ml Neb ONE ×2 (11:09)
[2019-09-11] MEDS ORDERED: Albuterol Sulfate 2.5 mg/0.5 ml Neb ONE ×2 (11:09→11:10)
[2019-09-11 11:32] LABS: Actual Bicarbonate (HCO3a) 20.8 mEq/L (22-28); Analyzer IN Cardio ER; CO2 Tension 41.5 mmHg (35.0-45.0); Calcium, Ionized (arterial) 1.14 mmol/L (1.12-1.30); Carboxyhemoglobin (COHb) 0.2 gm% (0.0-3.0); Hemoglobin (Hb) 9.6 g/dL (14.0-18.0); O2 Tension (PaO2), arterial 89.4 mmHg (> 60.0); Potassium - ABG Lab 4.76 mmol/L (3.70-5.30); pH, Arterial 7.32 (7.35-7.45)
[2019-09-11 11:36] LABS: Puncture Site LRA
[2019-09-11 11:37] LABS: ALV-art Gradient 215.225 (0-20)
[2019-09-11 11:39] LABS: SARS-CoV-2 NAA Rapid Test Not Detected (NotDetected)
== END 2019-09-11 18:44 | disposition short-term general hospital (02) ==
LOC: ERS 08:04
DX: J44.1 Chronic obstructive pulmonary disease with (acute) exacerbation (principal); I25.10 Atherosclerotic heart disease of native coronary artery without angina pectoris; I11.0 Hypertensive heart disease with heart failure; I50.9 Heart failure, unspecified; E11.40 Type 2 diabetes mellitus with diabetic neuropathy, unspecified; K21.9 Gastro-esophageal reflux disease without esophagitis; E78.5 Hyperlipidemia, unspecified; E03.9 Hypothyroidism, unspecified; E78.00 Pure hypercholesterolemia, unspecified; I10 Essential (primary) hypertension; M10.9 Gout, unspecified; G47.30 Sleep apnea, unspecified; F41.9 Anxiety disorder, unspecified; F32.9 Major depressive disorder, single episode, unspecified; Z79.891 Long term (current) use of opiate analgesic; Z79.82 Long term (current) use of aspirin; Z79.899 Other long term (current) drug therapy; Z79.4 Long term (current) use of insulin; Z79.1 Long term (current) use of non-steroidal anti-inflammatories (NSAID)
CPT/HCPCS: 71045; 80053; 82550; 82553; 82805; 83735; 83880; 84484; 85025; 87040; 93005; 94644; 94660; U0002; 36415; 96365; 96366; 96367; 96368; 96375; J0456; J0696; J2930; J3475; J7611

== ENCOUNTER 2019-12-24 16:27 | Inpatient (IN) | payer MEDICARE, OTHER ==
--- NOTE | 2019-12-24 17:30 | RAD ---
RADIOGRAPH CHEST 1 VIEW: DATE: 12/24/2019 TIME: 5:16 PM HISTORY: 84-year-old male with dyspnea COMPARISON: 09/11/2019 FINDINGS: Previously, there were bilateral interstitial-alveolar opacities. Currently, there are pulmonary dens ities that are in different locations than before. This includes alveolar opacity at right lower lobe resulting in new finding of complete silhouetting of the right hemidiaphragm. The left-sided inf iltrates themselves. Previously are currently no longer present or mild at left lower lobe. The left mid and upper lung zones and right apex are clear. Cardiomegaly again noted. There is probably p leural effusion bilaterally. No pneumothorax. IMPRESSION: 1. Cardiomegaly. 2. Probable bilateral pleural effusions. 3. Right lower lobe airspace opacity.
[2019-12-24 17:44] LABS: #Eosinphils 0.4 thou/uL (0.0-0.7); #Lymphocytes 1.2 thou/uL (1.20-3.40); #Monocytes 0.7 thou/uL (0.11-0.59); #Neutrophils 5.5 thou/uL (1.40-6.50); %Basophils 0.6 % (0.0-1.0); %Eosinophils 5.3 % (0.0-10.0); %Lymphocytes 14.7 % (21.0-51.0); %Monocytes 8.7 % (0.0-10.0); %Neutrophils 70.7 % (42.0-75.0); Hemoglobin 9.5 g/dL (14.0-18.0); Mean Corpuscular HGB CONC 33.2 g/dL (32.0-36.0); Mean Corpuscular Hemoglobin 33.9 pg (27.0-31.0); Mean Platelet Volume 9.5 fL (7.4-10.4); Platelet Count 120 thou/uL (130-400); RBC Distribution Width 13.5 % (11.5-14.5); Red Blood Cell (RBC) Count 2.81 mill/uL (4.70-6.10); White Blood Cell (WBC) Count 7.8 thou/uL (4.8-10.8)
[2019-12-24 17:58] LABS: ALT (SGPT) 8 U/L (8-55); AST (SGOT) 13 U/L (5-34); Albumin 3.2 g/dL (3.4-4.8); Alkaline Phosphatase 96 U/L (40-110); Anion Gap 12 mmol/L (10-20); BUN (Urea Nitrogen) 30 mg/dL (8.4-25.7); Bilirubin, Total 0.3 mg/dL (0.2-1.2); Calc. Creatinine Clearance 0 mL/min (70-130); Calcium 7.6 mg/dL (7.8-10.44); Carbon Dioxide 33 mmol/L (23-31); Chloride 104 mmol/L (98-107); Estimated GFR-MDRD 31; Globulin 2.5 g/dL (2.4-3.5); Glucose 97 mg/dL (83-110); Potassium 3.4 mmol/L (3.5-5.1); Protein, Total 5.7 g/dL (5.8-8.1); Sodium 146 mmol/L (136-145)
[2019-12-24 18:20] LABS: CKMB 1.1 ng/mL (0-6.6)
[2019-12-24] MEDS ORDERED: Aspirin Chewable 81 MG TAB ONE (18:44)
[2019-12-24] MEDS ORDERED: methylPREDNISolone Sod Succ/PF 125 MG/2 ML VIAL ONE (18:44)
--- NOTE | 2019-12-24 21:23 | PDOC.FPRHP ---
- History of Present Illness Chief Complaint: dyspnea History of Present Illness: Patient is an 84 yo M PMH COPD, baseline 2LNC O2 at home, CAD s/p stent 1 month ago, HTN, HLD, Hypothyroidism, TAWANA,who presents due to dypsnea x 24 hours, noting it started last night when he was sleeping and using his CPAP. Reports it is worse when he is more active, and improves with sitting upright. Denies chest pain, cough, increased LE swelling, fever/chills. Notes he had mild abdominal pain earlier today that cleared up. Last BM was 2-3 days ago which is normal for him. No ill contact. He lives at home with his who is unable to assist in caring for him. ED Course: levaquin, methylprednisolone, aspirin - Allergies/Adverse Reactions Allergies Allergy/AdvReac Type Severity Reaction Status Date / Time SHANE Inhibitors Allergy Verified 12/24/19 21:58 codeine Allergy Hives Verified 12/24/19 21:58 ezetimibe Allergy Verified 12/24/19 21:58 niacin Allergy Verified 12/24/19 21:58 rosiglitazone Allergy Verified 12/24/19 21:58 simvastatin Allergy Verified 12/24/19 21:58 - Home Medications Medication Instructions Recorded Confirmed Type Acetaminophen 325 mg PO BID 10/08/18 12/24/19 History Aspirin [Ecotrin Low Strength] 81 mg PO DAILY 10/08/18 12/24/19 History Levothyroxine Sodium [Synthroid] 137 mcg PO DAILY 10/08/18 12/24/19 History Tamsulosin HCl [Flomax] 0.4 mg PO HS cap 10/15/18 12/24/19 Rx Allopurinol 300 mg PO DAILY 02/13/19 12/24/19 History Albuterol Sulfate [Proair 2 puff PO Q4H PRN 09/29/19 12/24/19 History Digihaler] Amlodipine [Norvasc] 10 mg PO DAILY 09/29/19 12/24/19 History Budesonide/Formoterol Fumarate 2 puff PO BID 09/29/19 12/24/19 History [Budesonide-Formoterol 160-4.5] Carvedilol 6.25 mg PO BID 09/29/19 12/24/19 History Furosemide 40 mg PO DAILY 09/29/19 12/24/19 History Ipratropium/Albuterol Sulfate 1 ampule NEB Q4H PRN 09/29/19 12/24/19 History [DuoNeb] Isosorbide Mononitrate [Imdur ER] 60 mg PO DAILY 09/29/19 12/24/19 History Pantoprazole [Protonix] 40 mg PO BID 09/29/19 12/24/19 History Cyclobenzaprine [Flexeril] 10 mg PO BID 12/24/19 12/24/19 History Lorazepam 1 mg PO Q4H PRN 12/24/19 12/24/19 History Losartan Potassium [Cozaar] 100 mg PO DAILY 12/24/19 12/24/19 History Sennosides/Docusate Sodium 2 tablet PO BID 12/24/19 12/24/19 History [Senna-S Tablet] hydrOXYzine HCl [hydrOZYzine HCl] 50 mg PO BID 12/24/19 12/24/19 History rOPINIRole HCl [Ropinirole HCl] 2 mg PO HS 12/24/19 12/24/19 History - History PMHx: COPD, baseline 2LNC O2 at home, CAD s/p stent 1 month ago, TAWANA, CHF, DMII, Hypothyroidism, GERD, HLD, HTN, Gout, Peipheral Neuropathy, Asthma, Anxiety, Depression PSHx: L hip fx surgery 2019 FHx: none Social: no smoking, alcohol or drug use - Review of Systems General: denies: fever/chills, weight/appetite/sleep changes Eyes: denies: eye pain, vision changes ENT: denies: nasal congestion, rhinorrhea Respiratory: reports: shortness of breath. denies: cough, congestion Cardiovascular: reports: edema. denies: chest pain, palpitation Gastrointestinal: denies: nausea, vomiting, diarrhea, constipation, abdominal pain Genitourinary: denies: incontinence, dysuria Skin: denies: rashes, lesions Musculoskeletal: denies: pain, tenderness Neurological: denies: numbness, syncope Psychological: reports: anxiety, depression - Vital signs BP: 140/46 (Left Arm), Pulse: 61, Resp: 16, Temp: 97.6 (Oral), Pain: 0, O2 sat: 100 on (4L Oxygen), Wt 116kg - Physical Exam Constitutional: NAD, awake, alert and oriented, well developed HEENT: normocephalic and atraumatic, PERRLA, EOMI, MMM Neck: supple, FROM, trachea midline Heart: RRR, normal S1/S2, no murmurs/rubs/gallops, pulses present, other (2+ pitting edema bilaterally, scabbing consistent with venous stasis) Lungs: CTAB, no respiratory distress Abdomen: soft, bowel sounds present, no masses/distention, other (mild TTP diffusely) Musculoskeletal: normal structure, normal tone, ROM grossly normal Neurological: no focal deficit, CN II-XII intact, normal sensation Skin: no rash/lesions, good turgor, capillary refill <2 seconds Heme/Lymphatic: no unusual bruising or bleeding, no purpura Psychiatric: normal mood and affect, good judgment and insight, intact recent and remote memory FMR H&P: Results - Labs Result Diagrams: 12/25/19 04:18 12/25/19 04:18 Lab results: WBC 7.8 thou/uL (4.8-10.8) 12/24/19 17:34 Hgb 9.5 g/dL (14.0-18.0) L 12/24/19 17:34 Hct 28.7 % (42.0-52.0) L 12/24/19 17:34 MCV 102.0 fL (78.0-98.0) H 12/24/19 17:34 Plt Count 120 thou/uL (130-400) L 12/24/19 17:34 Neutrophils % 70.7 % (42.0-75.0) 12/24/19 17:34 Sodium 146 mmol/L (136-145) H 12/24/19 17:34 Potassium 3.4 mmol/L (3.5-5.1) L 12/24/19 17:34 Chloride 104 mmol/L (98-107) 12/24/19 17:34 Carbon Dioxide 33 mmol/L (23-31) H 12/24/19 17:34 BUN 30 mg/dL (8.4-25.7) H 12/24/19 17:34 Creatinine 2.09 mg/dL (0.7-1.3) H 12/24/19 17:34 Glucose 97 mg/dL (83-110) 12/24/19 17:34 Lactic Acid 0.5 mmol/L (0.5-2.2) 12/24/19 17:34 Calcium 7.6 mg/dL (7.8-10.44) L 12/24/19 17:34 Total Bilirubin 0.3 mg/dL (0.2-1.2) 12/24/19 17:34 AST 13 U/L (5-34) 12/24/19 17:34 ALT 8 U/L (8-55) 12/24/19 17:34 Alkaline Phosphatase 96 U/L (40-110) 12/24/19 17:34 CK-MB (CK-2) 1.1 ng/mL (0-6.6) 12/24/19 17:34 B-Natriuretic Peptide 219.1 pg/mL (0-100) H 12/24/19 17:34 Serum Total Protein 5.7 g/dL (5.8-8.1) L 12/24/19 17:34 Albumin 3.2 g/dL (3.4-4.8) L 12/24/19 17:34 FMR H&P: A/P - Plan Acute on chronic hypoxic respiratory failure, likely 2/2 pulmonary HTN and CHF vs COPD CXR: Cardiomegaly, probable bilateral pleural effusions., right lower lobe airspace opacity, shows pulmonary vessels larger than bronchioles BNP 219 2LNC requirement at home, currently requiring 4L - will ordered echo - CPAP overnight - wean O2 as tolerated - albuterol nebs q4hr prn, continue steroids - procal ordered, will assess need for abx - will need to request records in the AM from [facility] - lasix 40mg IVP, gentle diuresis given suspicion pulm HTN - admit to tele/obs Hypokalemia K 3.4 - will replete CKD Stage 3b Cr 2.009, GFR 31 - appears baseline DMII - a1c ordered - SS - hypoglycemia protocol - ACHS glucose checks CAD Trop .036 -Trend troponins - continue home medications Hx Anemia Hgb 9.5 Likely 2/2 Anemia of Chronic Disease Anxiety/Depression - continue home meds Hypothyroidism - continue home meds HLD - continue home meds HTN - continue home meds TAWANA - continue CPAP at night GERD - continue home meds Gout - continue home meds Code: Full Prophylaxis: Heparin Fluids: SL Diet: HH Disposition: DC in 2-3 days PCP: MARIANNE FMR H&P: Upper Level - Plan Date/Time: 12/24/192121 IPablo DO, have evaluated this patient and agree with findings/plan as outlined by commissioner of internal revenue resident. Pertinent changes/additions are listed here. This is a 84 yo male with a pmh of COPD, chronic hypoxic respiratory failure on 2 L NC at baseline, CAD with stent placed in RCA 1 month ago, HTN, HLD, Hypothyroidism, TAWANA, who presents to the ER with a cc of SOB. He states that it started last night and came on gradually. He denies coughing or increased sputum production. He does report he props himself up at night in order to rest comfortably. He states he lives at home with his but she is unable to care for him. He states he has an albuterol inhaler but rarely uses it. He also endorses an mid to lower abdominal pain that started last night as well. He does not think they are related. He denies nausea, vomiting, diarrhea, or constipation. He denies chest pain. Denies fevers or chills. Objective: Vitals: BP 140/46, HR 61, RR 16, Temp 97.6, SpO2 100% 4L, Wt 116 kg General: NAD HEENT: AT/NC Cardio: RRR, no murmur however exam is difficult 2/2 body habitus RRR: CTAB Abdomen: BS+, soft, mild tenderness to palpation of lower abdomen, no masses Extremities: 2+ pitting edema bilaterally, scabbing consistent with venous stasis A/P Acute on chronic hypoxic respiratory failure likely 2/2 pulmonary HTN and heart failure vs COPD -Admit to tele -Continue respiratory support -CPAP overnight -Gentle diuresis given pulmonary congestion in the presence of presumptive pulmonary HTN -Will continue steroids, abx, and albuterol for now -Pending procal to assess bacterial process -CXR shows pulmonary vessels larger than bronchioles as well as pulmonary effusion and alveolar infiltrates -Echo to assess heart function -Will need to request records in the AM from [facility] regarding heart cath/stents TAWANA -Home CPAP CAD -Trend troponins, continue home medications CKD 3 -Slight bump in Cr likely 2/2 fluid overload Please see commissioner of internal revenue note for further information and management of chronic conditions Code: Full Prophylaxis: Heparin Family: None at bedside Fluids: SL Diet: HH Disposition: DC in 2-3 days PCP: MARIANNE Addendum - Attending - Attending Attestation Date/Time: 12/24/19 2811 I personally evaluated the patient and discussed the management with Dr. Ordonez I agree with the History, Examination, Assessment and Plan documented above with any addition or exceptions noted below - 84 yo male with h/o COPD, chronic hypoxic respiratory failure on 2 L NC at baseline, CAD with stent placed in RCA 3 month ago, HTN, HLD, Hypothyroidism, TAWANA, HFpEF who presents to the ER with a cc of SOB. He states that it started last night and came on gradually. He denies coughing or increased sputum production. He does report he props himself up at night in order to rest comfortably. He states he lives at home with his but she is unable to care for him. PMH/PSH/Meds/SH reviewed and agree with resident's documentation. Afebrile VSS. Exam repeated by me and agree with resident's findings. Labs: WBC=7.8, H/H=9.5/28.7, Zao=163, At=076, K=3.4, BUN/Cr=30/2.09, BNP 219. A/P: 1) Dyspnea - possibly secondary to HFpEF; received lasix last night and will give additional dose this morning. Continue nebs also. 2) Hypothyroidism- continue home meds, 3) CKD stage 3b-stable.
[2019-12-24 21:31] LABS: Troponin I 0.025 ng/mL (< 0.028)
[2019-12-24] MEDS ORDERED: Dextrose 50% Abboject 50 ML SYRINGE SLOW IVP PRN (21:45)
[2019-12-24] MEDS ORDERED: Senokot S 8.6-50 MG TAB PO PRN (21:45)
[2019-12-24] MEDS ORDERED: Dextrose 5% in Water 1,000 ML IV PRN (21:45)
[2019-12-24] MEDS ORDERED: HumaLOG 300 UNITS/3 ML VIAL SC PRN (21:45)
[2019-12-24] MEDS ORDERED: Albuterol Sulfate 2.5 mg/3 ml Neb NEB PRN (21:56)
[2019-12-24] MEDS ORDERED: Ondansetron ODT 4 MG TAB SL PRN (22:00)
[2019-12-24] MEDS ORDERED: Acetaminophen 325 MG TAB PO PRN (22:00)
[2019-12-24] MEDS ORDERED: Ondansetron PF 4 MG/2 ML Vial IVP PRN (22:00)
[2019-12-24] MEDS ORDERED: hydrALAZINE 10 MG TAB PO PRN (22:01)
[2019-12-24] MEDS ORDERED: Lactated Ringer's 1,000 ML IV SCH (22:15)
[2019-12-24] MEDS ORDERED: Furosemide 40 MG/4 ML VIAL SLOW IVP SCH (22:15)
[2019-12-24 22:22] VITALS: BMI 40.2
[2019-12-24] MEDS: Labetalol HCl 100 MG/20 ML VIAL SLOW IVP PRN (22:35)
[2019-12-24 23:40] LABS: Hemoglobin A1c 4.8 % (4.0-6.0)
[2019-12-24 23:49] LABS: Troponin I 0.041 ng/mL (< 0.028)
[2019-12-25] MEDS ORDERED: Lorazepam 1 MG TAB PO PRN (00:38)
[2019-12-25] MEDS ORDERED: Potassium Chloride 20 MEQ TAB PO SCH (02:30)
[2019-12-25] MEDS: Labetalol HCl 100 MG/20 ML VIAL SLOW IVP PRN (03:03)
[2019-12-25 04:25] LABS: #Lymphocytes 0.7 thou/uL (1.20-3.40); #Monocytes 0.1 thou/uL (0.11-0.59); #Neutrophils 5.7 thou/uL (1.40-6.50); %Basophils 0.3 % (0.0-1.0); %Eosinophils 0.2 % (0.0-10.0); %Lymphocytes 10.2 % (21.0-51.0); %Monocytes 0.8 % (0.0-10.0); %Neutrophils 88.5 % (42.0-75.0); Hemoglobin 9.9 g/dL (14.0-18.0); Mean Corpuscular Hemoglobin 33.5 pg (27.0-31.0); Mean Platelet Volume 9.1 fL (7.4-10.4); Platelet Count 129 thou/uL (130-400); RBC Distribution Width 13.2 % (11.5-14.5); Red Blood Cell (RBC) Count 2.95 mill/uL (4.70-6.10); White Blood Cell (WBC) Count 6.4 thou/uL (4.8-10.8)
[2019-12-25 04:46] LABS: Anion Gap 16 mmol/L (10-20); BUN (Urea Nitrogen) 33 mg/dL (8.4-25.7); Calc. Creatinine Clearance 45 mL/min (70-130); Calcium 7.7 mg/dL (7.8-10.44); Carbon Dioxide 30 mmol/L (23-31); Chloride 104 mmol/L (98-107); Estimated GFR-MDRD 29; Glucose 132 mg/dL (83-110); Potassium 3.8 mmol/L (3.5-5.1); Sodium 146 mmol/L (136-145)
[2019-12-25] MEDS: Levothyroxine Sodium 25 MCG TAB PO SCH (06:02)
[2019-12-25] MEDS: Levothyroxine Sodium 112 MCG TAB PO SCH (06:02)
[2019-12-25] MEDS: Mometasone 200 MCG/Formoterol 5 MCG 120 PUFF INHALER INH SCH ×2 (07:38→18:14)
--- NOTE | 2019-12-25 07:49 | PDOC.FM ---
- Subjective Subjective: Patient feeling well this AM. Reports breathing is better. No other acute concerns. - Objective Vital Signs & Weight: Vital Signs (12 hours) Temp Pulse Resp BP Pulse Ox 12/25/19 03:08 98.7 F 74 191/81 H 97 12/25/19 03:03 76 12/25/19 02:18 76 175/72 H 12/24/19 21:45 98.7 F 70 22 H 187/77 H 100 Weight Weight 119.975 kg I&O: 12/24/19 12/25/19 12/26/19 06:59 06:59 06:59 Intake Total 240 Output Total 200 Balance 40 Result Diagrams: 12/25/19 04:18 12/25/19 04:18 Phys Exam - Physical Examination Constitutional: NAD Respiratory: no wheezing, no rales, no rhonchi, clear to auscultation bilateral Cardiovascular: RRR, no significant murmur, no rub Gastrointestinal: soft, non-tender, no distention, positive bowel sounds Musculoskeletal: no edema, pulses present Dx/Plan - Plan Plan: Acute on chronic hypoxic respiratory failure, likely 2/2 pulmonary HTN and CHF vs COPD CXR: Cardiomegaly, probable bilateral pleural effusions., right lower lobe airspace opacity, shows pulmonary vessels larger than bronchioles BNP 219, Procal 0.04 ( do not need abx) 2LNC requirement at home, currently requiring 3L - CPAP overnight - wean O2 as tolerated - albuterol nebs q4hr prn, continue steroids - will need to request records in the AM from [facility] - lasix 40mg PO - ECHO this AM CKD Stage 3b Cr 2.009, GFR 31 - appears baseline DMII - a1c ordered - SS - hypoglycemia protocol - ACHS glucose checks CAD Trop .036 -Trend troponins - continue home medications Hx Anemia Hgb 9.5 Likely 2/2 Anemia of Chronic Disease Anxiety/Depression - continue home meds Hypothyroidism - continue home meds HLD - continue home meds HTN - continue home meds TAWANA - continue CPAP at night GERD - continue home meds Gout - continue home meds Hypokalemia- resolved 3.8 on 12/24 Code: Full Prophylaxis: Heparin Fluids: SL Diet: HH Disposition: DC in 2-3 days PCP: MARIANNE Addendum - Attending - Attending Attestation Date/Time: 12/25/19 1513 I personally evaluated the patient and discussed the management with Dr. Conner I agree with the History, Examination, Assessment and Plan documented above with any addition or exceptions noted below- Feeling better this morning. Afebrile VSS A/P: 1) HFpEF exacerbation- continue lasix. Monitor electorlytes. Repeat echo pending. 2) HTN- restart home meds and adjust as needed. 3) CKD 3b- stable; continue to monitor
[2019-12-25] MEDS ORDERED: Furosemide 40 MG/4 ML VIAL SLOW IVP SCH (08:30)
[2019-12-25 09:00] LABS: Troponin I 0.024 ng/mL (< 0.028)
[2019-12-25] MEDS ORDERED: FLU VACC QS2020-21(65YR UP)/PF 240 MCG/0.7 ML SYRINGE IM ONE (09:00)
[2019-12-25] MEDS ORDERED: Furosemide 40 MG TAB PO SCH (09:00)
[2019-12-25] MEDS: Aspirin 81 mg Enteric Coated Tablet PO SCH (09:41)
[2019-12-25] MEDS: Heparin 5,000 UNITS/ML VIAL SC SCH ×3 (09:41→21:08)
[2019-12-25] MEDS: Amlodipine 10 MG TAB PO SCH (09:41)
[2019-12-25] MEDS: Senokot S 8.6-50 MG TAB PO SCH ×2 (09:41→21:08)
[2019-12-25] MEDS: Cyclobenzaprine 10 MG TAB PO SCH ×2 (09:41→21:08)
[2019-12-25] MEDS: predniSONE 20 MG TAB PO SCH (09:42)
[2019-12-25] MEDS: Losartan 25 MG TAB PO SCH (09:42)
[2019-12-25] MEDS: hydrOXYzine 25 MG TAB PO SCH ×2 (09:42→21:08)
[2019-12-25] MEDS: Allopurinol 300 MG TAB PO SCH (09:42)
[2019-12-25] MEDS: Acetaminophen 325 MG TAB PO SCH ×2 (09:43→21:07)
[2019-12-25] MEDS: HumaLOG 300 UNITS/3 ML VIAL SC PRN ×2 (14:05→17:36)
[2019-12-25 18:18] LABS: SARS-CoV-2 MS2 Positive; SARS-CoV-2 N Gene Negative; SARS-CoV-2 S Gene Negative; SARS-CoV-2 by NAA Not Detected (NotDetected); SARS-CoV-2 orf1ab Negative
[2019-12-25] MEDS: Carvedilol 6.25 MG TAB PO SCH (21:08)
[2019-12-25] MEDS: Tamsulosin HCl 0.4 MG CAP PO SCH (21:08)
[2019-12-25] MEDS: rOPINIRole HCl 2 MG TAB PO SCH (21:08)
[2019-12-26] MEDS: Levothyroxine Sodium 112 MCG TAB PO SCH (06:23)
[2019-12-26] MEDS: Levothyroxine Sodium 25 MCG TAB PO SCH (06:23)
[2019-12-26] MEDS: Mometasone 200 MCG/Formoterol 5 MCG 120 PUFF INHALER INH SCH ×2 (06:40→19:06)
[2019-12-26 07:57] LABS: #Lymphocytes 0.9 thou/uL (1.20-3.40); #Monocytes 0.7 thou/uL (0.11-0.59); #Neutrophils 8.7 thou/uL (1.40-6.50); %Basophils 0.1 % (0.0-1.0); %Eosinophils 0.1 % (0.0-10.0); %Monocytes 6.7 % (0.0-10.0); %Neutrophils 84.1 % (42.0-75.0); Hemoglobin 10.1 g/dL (14.0-18.0); Mean Corpuscular HGB CONC 32.3 g/dL (32.0-36.0); Mean Corpuscular Hemoglobin 33.3 pg (27.0-31.0); Mean Platelet Volume 9.3 fL (7.4-10.4); Platelet Count 131 thou/uL (130-400); RBC Distribution Width 13.1 % (11.5-14.5); Red Blood Cell (RBC) Count 3.03 mill/uL (4.70-6.10); White Blood Cell (WBC) Count 10.3 thou/uL (4.8-10.8)
--- NOTE | 2019-12-26 08:10 | PDOC.FM ---
- Subjective Subjective: Patient is feeling well at this time. Earlier this AM-around 0700-patient became significantly short of breath and was found to be in Atrial flutter on tele monitoring. Patient's SOB improved, however HR continues to be in 120s in A flutter per monitoring. - Objective Vital Signs & Weight: Vital Signs (12 hours) Temp Pulse Resp BP BP BP Pulse Ox 12/26/19 07:21 97.8 F 121 H 17 154/78 H 98 12/26/19 06:39 123 H 20 97 12/26/19 06:30 121 H 26 H 177/79 H 97 12/26/19 03:30 98.8 F 80 16 170/72 H 95 12/25/19 21:08 166/67 H Weight Weight 119.975 kg I&O: 12/25/19 12/26/19 12/27/19 06:59 06:59 06:59 Intake Total 240 1080 Output Total 200 600 Balance 40 480 Result Diagrams: 12/26/19 07:31 12/26/19 07:31 Phys Exam - Physical Examination Constitutional: NAD Respiratory: no wheezing, no rales, no rhonchi Cardiovascular: no significant murmur, no rub tachycardic, regular rate Gastrointestinal: soft, non-tender, no distention Dx/Plan - Plan Plan: Acute on chronic hypoxic respiratory failure, likely 2/2 pulmonary HTN and CHF vs COPD CXR: Cardiomegaly, probable bilateral pleural effusions., right lower lobe airspace opacity, shows pulmonary vessels larger than bronchioles BNP 219, Procal 0.04 ( do not need abx) 2LNC requirement at home, currently requiring 3L - CPAP overnight - wean O2 as tolerated - albuterol nebs q4hr prn, continue steroids - Records were requested this AM - lasix 40mg PO - ECHO with EF of 55-60% New Onset A flutter - onset in AM of 12/25, presented with SOB - On Coreg 6.25 mg BID previously - Consult cardiology, attempt to get records CKD Stage 3b Cr 2.009, GFR 31 - appears baseline DMII - a1c ordered - SS - hypoglycemia protocol - ACHS glucose checks CAD Trop .036 -Troponins stable, continue home meds Hx Anemia Hgb 9.5 Likely 2/2 Anemia of Chronic Disease Anxiety/Depression - continue home meds Hypothyroidism - continue home meds HLD - continue home meds HTN - continue home meds TAWANA - continue CPAP at night GERD - continue home meds Gout - continue home meds Hypokalemia- resolved 3.8 on 12/24 Code: Full Prophylaxis: Heparin Fluids: SL Diet: HH Disposition: DC in 2-3 days PCP: Dr. Cowart (sp) Addendum - Attending - Attending Attestation Date/Time: 12/26/19 2562 I personally evaluated the patient and discussed the management with Dr. Conner. I agree with the History, Examination, Assessment and Plan documented above with any addition or exceptions noted below.
[2019-12-26 08:16] LABS: ALT (SGPT) 7 U/L (8-55); AST (SGOT) 16 U/L (5-34); Albumin 3.6 g/dL (3.4-4.8); Alkaline Phosphatase 101 U/L (40-110); Anion Gap 14 mmol/L (10-20); BUN (Urea Nitrogen) 50 mg/dL (8.4-25.7); Bilirubin, Total 0.3 mg/dL (0.2-1.2); Calc. Creatinine Clearance 39 mL/min (70-130); Carbon Dioxide 32 mmol/L (23-31); Chloride 102 mmol/L (98-107); Estimated GFR-MDRD 25; Globulin 2.6 g/dL (2.4-3.5); Glucose 134 mg/dL (83-110); Potassium 3.9 mmol/L (3.5-5.1); Protein, Total 6.2 g/dL (5.8-8.1); Sodium 144 mmol/L (136-145)
[2019-12-26] MEDS: Furosemide 40 MG TAB PO SCH (08:40)
[2019-12-26] MEDS: Heparin 5,000 UNITS/ML VIAL SC SCH ×2 (08:40→16:06)
[2019-12-26] MEDS: Cyclobenzaprine 10 MG TAB PO SCH ×2 (08:41→21:26)
[2019-12-26] MEDS: Senokot S 8.6-50 MG TAB PO SCH ×2 (08:41→21:25)
[2019-12-26] MEDS: Amlodipine 10 MG TAB PO SCH (08:41)
[2019-12-26] MEDS: hydrOXYzine 25 MG TAB PO SCH ×2 (08:41→21:26)
[2019-12-26] MEDS: Aspirin 81 mg Enteric Coated Tablet PO SCH (08:41)
[2019-12-26] MEDS: Losartan 25 MG TAB PO SCH (08:41)
[2019-12-26] MEDS: Carvedilol 6.25 MG TAB PO SCH ×2 (08:42→21:27)
[2019-12-26] MEDS: Acetaminophen 325 MG TAB PO SCH ×2 (08:42→21:25)
[2019-12-26] MEDS: predniSONE 20 MG TAB PO SCH (08:42)
[2019-12-26] MEDS: Allopurinol 300 MG TAB PO SCH (08:42)
[2019-12-26] MEDS ORDERED: Carvedilol 6.25 MG TAB PO SCH ×2 (10:09→11:00)
[2019-12-26] MEDS: HumaLOG 300 UNITS/3 ML VIAL SC PRN ×2 (11:26→17:49)
[2019-12-26] MEDS ORDERED: Diltiazem 125 MG in Sodium Chloride 0.9% 100 ML IVPB SCH (14:15)
--- NOTE | 2019-12-26 16:04 | CON ---
DATE OF CONSULTATION: 12/26/2019 INDICATION FOR CONSULTATION: An 84-year-old gentleman with CHF exacerbation with history of coronary artery disease and recent angioplasty and stent placement with a new onset of atrial fibrillation. HISTORY OF PRESENT ILLNESS: This very pleasant 84-year-old gentleman, who is a patient of Dr. Montaño, underwent a cardiac catheterization in the past and was found to have a significant coronary artery disease, was advised to undergo angioplasty and stent placement. He opted to have this done through the [facility] since he is a [facility] patient and recently underwent an angioplasty and stent placement. I am unsure as to which vessel, underwent angioplasty and stent placement. He believes it might be the right coronary artery. He has had a normal ejection fraction in the past. He presented at this time after having some congestive heart failure symptoms. Also, apparently he was on the ventilator, while in [place] due to congestive heart failure. He has been home doing relatively well, but then became more short of breath and noticed that he was having an irregular heart rate. I believe the stent was placed in the right coronary artery apparently. He also recently had a [id number] elevation myocardial infarction. After being admitted to the hospital, he is somewhat more stable, but then developed atrial fibrillation with a rapid ventricular response. I believe on the admitting EKG. He was in a sinus rhythm with a heart rate about 60 beats per minute without any acute ST-segment elevation. At this time, the heart rate is still in the one teens to 120s and blood pressure is in the 140s to 180s. We were asked to see him due to the new onset atrial fibrillation and congestive heart failure exacerbation. PAST MEDICAL HISTORY: Significant for coronary artery disease, angioplasty and stent placement to the right coronary artery apparently in October in [place], uncertain as to the size of this stent. He had no further chest pain. He has COPD. He has history of obstructive sleep apnea. He has a history of hypothyroidism, hyperlipidemia, and hypertension. He has a history of gastroesophageal reflux disease, gout, anxiety, depression, and history of anemia. Also has a history of diabetes type 2. He had a left hip fracture with surgery in 2019. He also has a history of peripheral neuropathy and also a history of asthma. MEDICATIONS: Include; 1. Tylenol. 2. Aspirin. 3. Levothyroxine. 4. Flomax. 5. Allopurinol. 6. ProAir inhaler. 7. Norvasc. 8. Budesonide/formoterol fumarate. 9. Furosemide 40 mg a day. 10. Ipratropium/albuterol sulfate. 11. Isosorbide mononitrate 60 mg a day. 12. Protonix daily. 13. Flexeril daily. 14. Lorazepam p.r.n. 15. Losartan 100 mg daily. 16. He is on senna tablets. 17. Hydroxyzine 50 mg twice a day. 18. Ropinirole/HCL 2 mg at bedtime. ALLERGIES: HE IS ALLERGIC TO SHANE INHIBITORS, CODEINE, EZETIMIBE, NIACIN, SIMVASTATIN, AND ROSIGLITAZONE. REVIEW OF SYSTEMS: A 12-point review of systems, he complains of some visual changes. He wears glasses. He has had shortness of breath recently as noted above. He has had some mild lower extremity edema, this apparently has also improved. Otherwise, he denied any GI complaints, complaints, and neurological complaints except for some mild peripheral neuropathy complaints. PHYSICAL EXAMINATION: GENERAL: Reveals a well-developed and well-nourished gentleman. He is in no acute distress at this time. He is alert. He is oriented. He is answering questions appropriately. VITAL SIGNS: Blood pressure is 147 to 183 systolic with diastolics of 70 to 80, respiratory rate is 18 to 26, O2 saturation 99%, and heart rate at this time is 118 beats per minute. He is afebrile. HEENT: Shows the head to be normocephalic and atraumatic. Carotid pulses are present. I did not hear any significant bruits. CHEST: His chest actually is clear to auscultation. He does have decreased breath sounds throughout. CARDIOVASCULAR: Reveals a tachycardia with an irregular rhythm. There are no gross murmurs noted. ABDOMEN: Obese with positive bowel sounds. No organomegaly or masses are noted. Femoral pulses are present. EXTREMITIES: No clubbing or cyanosis. He has had mild lower extremity edema. Pedal pulses are present, somewhat difficult to palpate, but were present. PSYCHOSOCIAL: Appears to be also relatively good affect and judgment and otherwise no significant problems. NEUROLOGIC: The patient appears to be fully intact. He has normal strength and tone for someone of his age. LABORATORY DATA: Shows a WBC of 10.3, hemoglobin 10.1, platelet count 131,000. Sodium was 144, potassium was 3.9, bicarb was 32, BUN was 50, creatinine is 2.47 and on admission it was 2.09, and blood sugar was 163. Cardiac enzymes showed a troponin I of 0.036, increased up to a maximum of 0.041 and then decreased back down to 0.024. DIAGNOSTIC STUDIES: EKG on admission showed a normal sinus rhythm with a first-degree AV heart block, but no acute changes otherwise were noted. At this time, the patient has atrial fibrillation with rapid ventricular response on the monitor. IMPRESSION AND PLAN: 1. Congestive heart failure exacerbation. He may have some diastolic dysfunction. This may be due to his chronic obstructive pulmonary disease with this increasing shortness of breath and or due to atrial fibrillation. This may be intermittent. He may be in having this at home. At this time, he appears to be relatively improved. 2. Atrial fibrillation with rapid ventricular response. He has been on beta-blockers in the form of Coreg. He is on Coreg 12.5 mg b.i.d. and blood pressure still elevated and so his heart rate, we will add diltiazem to see if we can control the heart rate hopefully convert back to sinus rhythm. He will need to be on anticoagulation. He is not on any oral anticoagulation thus far. He needs to be placed on at least subcu Lovenox at this time to decrease the risk of embolic phenomenon and cerebrovascular accident. 3. Hypertension. This is relatively under control at this time. We will do hopefully with the diltiazem and the Coreg will improve. 4. Coronary artery disease. There is no indication he has any ongoing ischemia at this time. 5. Chronic obstructive pulmonary disease. This may be chronic obstructive pulmonary disease exacerbation. He has been placed on prednisone and at this time he is breathing relatively easily and there is no wheezes noted at this time. 6. Coronary artery disease. He is status post angioplasty and stent placement, but appears to be stable. No indication of ischemia and no chest pain. We are more than happy to continue to follow the patient with you. 7. Chronic renal insufficiency. His creatinine has increased since being admitted. We will need to be careful not to over diurese the patient. For his other medical diagnosis, please refer to the notes already dictated. Also please note, he did have an echocardiogram performed, which was just yesterday, which showed ejection fraction of 55% to 60% with moderate mitral valve regurgitation. Further care of the patient will be by Dr. Muir when he visits the patient most likely tomorrow. Job ID: [id number] MTDD
[2019-12-26] MEDS: Enoxaparin Sodium 120 MG/0.8 ML SYRINGE SC SCH (21:24)
[2019-12-26] MEDS: Tamsulosin HCl 0.4 MG CAP PO SCH (21:26)
[2019-12-26] MEDS: rOPINIRole HCl 2 MG TAB PO SCH (21:26)
[2019-12-27 04:42] LABS: #Eosinphils 0.1 thou/uL (0.0-0.7); #Lymphocytes 0.9 thou/uL (1.20-3.40); #Monocytes 0.7 thou/uL (0.11-0.59); #Neutrophils 7.6 thou/uL (1.40-6.50); %Eosinophils 0.6 % (0.0-10.0); %Lymphocytes 9.8 % (21.0-51.0); %Monocytes 7.1 % (0.0-10.0); %Neutrophils 82.5 % (42.0-75.0); Hemoglobin 9.3 g/dL (14.0-18.0); Mean Corpuscular HGB CONC 33.6 g/dL (32.0-36.0); Mean Corpuscular Hemoglobin 34.2 pg (27.0-31.0); Mean Platelet Volume 9.8 fL (7.4-10.4); Platelet Count 124 thou/uL (130-400); RBC Distribution Width 13.3 % (11.5-14.5); Red Blood Cell (RBC) Count 2.72 mill/uL (4.70-6.10); White Blood Cell (WBC) Count 9.2 thou/uL (4.8-10.8)
[2019-12-27 05:11] LABS: ALT (SGPT) 12 U/L (8-55); AST (SGOT) 20 U/L (5-34); Albumin 3.2 g/dL (3.4-4.8); Alkaline Phosphatase 87 U/L (40-110); Anion Gap 13 mmol/L (10-20); BUN (Urea Nitrogen) 48 mg/dL (8.4-25.7); Bilirubin, Total 0.3 mg/dL (0.2-1.2); Calc. Creatinine Clearance 47 mL/min (70-130); Calcium 7.6 mg/dL (7.8-10.44); Carbon Dioxide 35 mmol/L (23-31); Chloride 101 mmol/L (98-107); Estimated GFR-MDRD 31; Globulin 2.1 g/dL (2.4-3.5); Glucose 125 mg/dL (83-110); Potassium 3.7 mmol/L (3.5-5.1); Protein, Total 5.3 g/dL (5.8-8.1); Sodium 145 mmol/L (136-145)
[2019-12-27] MEDS: Levothyroxine Sodium 112 MCG TAB PO SCH (06:03)
[2019-12-27] MEDS: Levothyroxine Sodium 25 MCG TAB PO SCH (06:03)
[2019-12-27] MEDS: Mometasone 200 MCG/Formoterol 5 MCG 120 PUFF INHALER INH SCH ×2 (07:25→19:57)
[2019-12-27] MEDS: predniSONE 20 MG TAB PO SCH (08:33)
[2019-12-27] MEDS: Acetaminophen 325 MG TAB PO SCH ×2 (08:34→21:08)
[2019-12-27] MEDS: Amlodipine 10 MG TAB PO SCH (08:35)
[2019-12-27] MEDS: Losartan 25 MG TAB PO SCH (08:35)
[2019-12-27] MEDS: hydrOXYzine 25 MG TAB PO SCH ×2 (08:35→21:07)
[2019-12-27] MEDS: Carvedilol 6.25 MG TAB PO SCH ×2 (08:36→21:08)
[2019-12-27] MEDS: Allopurinol 300 MG TAB PO SCH (08:36)
[2019-12-27] MEDS: Cyclobenzaprine 10 MG TAB PO SCH ×2 (08:36→21:08)
[2019-12-27] MEDS: Aspirin 81 mg Enteric Coated Tablet PO SCH (08:36)
[2019-12-27] MEDS: Senokot S 8.6-50 MG TAB PO SCH ×2 (08:36→21:08)
[2019-12-27] MEDS: Furosemide 40 MG TAB PO SCH (08:36)
--- NOTE | 2019-12-27 08:46 | PDOC.FM ---
- Subjective Subjective: Patient feeling well this AM, diltiazem drip stopped @~4 am. NSR since then. Denies CP/SOB at this time. - Objective Vital Signs & Weight: Vital Signs (12 hours) Temp Pulse Resp BP BP BP Pulse Ox 12/27/19 08:30 97.6 F 66 20 166/73 H 96 12/27/19 04:00 99.5 F 60 16 148/68 H 97 12/27/19 00:00 114 H 167/74 H 12/26/19 21:27 170/75 H Weight Weight 120.656 kg I&O: 12/26/19 12/27/19 12/28/19 06:59 06:59 06:59 Intake Total 1080 1215 Output Total 600 1925 Balance 480 -710 Result Diagrams: 12/27/19 03:58 12/27/19 03:58 Phys Exam - Physical Examination Constitutional: NAD Respiratory: no wheezing, no rales, no rhonchi, clear to auscultation bilateral Cardiovascular: RRR, no significant murmur, no rub Gastrointestinal: soft, non-tender, no distention, positive bowel sounds Dx/Plan - Plan Plan: Acute on chronic hypoxic respiratory failure, likely 2/2 pulmonary HTN and CHF vs COPD CXR: Cardiomegaly, probable bilateral pleural effusions., right lower lobe airspace opacity, shows pulmonary vessels larger than bronchioles BNP 219, Procal 0.04 ( do not need abx) 2LNC requirement at home, currently requiring 3L - CPAP overnight - wean O2 as tolerated - albuterol nebs q4hr prn, continue steroids - Records were requested, f/u today - lasix 40mg PO - ECHO with EF of 55-60% A fib with RVR - onset in AM of 12/25, presented with SOB - On Coreg 6.25 mg BID previously, increased to 12.5 BID - Dilt drip stopped this AM with conversion to NSR - Consulted cardiology CKD Stage 3b Cr 2.09, GFR 31 - appears baseline DMII - SS - hypoglycemia protocol - ACHS glucose checks CAD Trop .036 -Troponins stable, continue home meds Hx Anemia Hgb 9.5 Likely 2/2 Anemia of Chronic Disease Anxiety/Depression - continue home meds Hypothyroidism - continue home meds HLD - continue home meds HTN - continue home meds TAWANA - continue CPAP at night GERD - continue home meds Gout - continue home meds Hypokalemia- resolved 3.8 on 12/24 Code: Full Prophylaxis: Heparin Fluids: SL Diet: HH Disposition: DC today pending cardiology recs PCP: Dr. Cowart (sp) at [place] Addendum - Attending - Attending Attestation Date/Time: 12/27/19 1116 I personally evaluated the patient and discussed the management with Dr. Conner. I agree with the History, Examination, Assessment and Plan documented above with any addition or exceptions noted below. Patietn overall nearing baseline volume status. Cardiology on board and awaiting further recommendations.
--- NOTE | 2019-12-27 10:00 | PRG ---
DATE OF SERVICE: 12/27/2019 SUBJECTIVE: Mr. Pfeiffer converted back to sinus rhythm. He is feeling much better. OBJECTIVE: VITAL SIGNS: Blood pressure 160/70, pulse 66 and regular. LUNGS: Clear. CARDIAC: Now it is regular rate and rhythm. ABDOMEN: Soft, nontender. EXTREMITIES: Mild to moderate edema. PERTINENT LABORATORY DATA: The hemoglobin is 9.3. BNP 219. Potassium 3.7, creatinine 2.07. ASSESSMENT: 1. Congestive heart failure, diastolic, acute on chronic. 2. Hypertension. 3. Atrial fibrillation with a rapid ventricular response, poorly tolerated. PLAN: 1. Stop diltiazem. 2. Continue carvedilol. 3. Add Multaq. 4. Give extra dose of furosemide today, probably home tomorrow. The patient has limited options for antiarrhythmics. In view of COPD, amiodarone would be a poor choice. We will start him on Multaq. Hopefully, you can help him get this medicine from a financial standpoint. Cannot take sotalol due to renal failure and lung disease. Cannot take flecainide due to heart failure. Job ID: [id number]
[2019-12-27] MEDS: HumaLOG 300 UNITS/3 ML VIAL SC PRN ×2 (11:15→17:25)
[2019-12-27] MEDS ORDERED: Potassium Chloride 20 MEQ TAB PO SCH (12:00)
[2019-12-27] MEDS ORDERED: Furosemide 40 MG/4 ML VIAL SLOW IVP SCH (12:00)
[2019-12-27] MEDS: Dronedarone HCl 400 MG TAB PO SCH (16:23)
[2019-12-27] MEDS: Enoxaparin Sodium 120 MG/0.8 ML SYRINGE SC SCH (21:06)
[2019-12-27] MEDS: rOPINIRole HCl 2 MG TAB PO SCH (21:08)
[2019-12-27] MEDS: Tamsulosin HCl 0.4 MG CAP PO SCH (21:09)
[2019-12-28] MEDS: hydrALAZINE 10 MG TAB PO PRN (04:32)
[2019-12-28] MEDS: Levothyroxine Sodium 112 MCG TAB PO SCH (05:40)
[2019-12-28] MEDS: Levothyroxine Sodium 25 MCG TAB PO SCH (05:40)
[2019-12-28] MEDS: Mometasone 200 MCG/Formoterol 5 MCG 120 PUFF INHALER INH SCH ×2 (07:57→19:44)
[2019-12-28] MEDS: Dronedarone HCl 400 MG TAB PO SCH ×2 (08:51→16:04)
[2019-12-28] MEDS: predniSONE 20 MG TAB PO SCH (08:51)
[2019-12-28] MEDS: Acetaminophen 325 MG TAB PO SCH ×2 (08:52→20:41)
[2019-12-28] MEDS: Losartan 25 MG TAB PO SCH (08:52)
[2019-12-28] MEDS: Cyclobenzaprine 10 MG TAB PO SCH ×2 (08:52→20:42)
[2019-12-28] MEDS: hydrOXYzine 25 MG TAB PO SCH ×2 (08:53→20:42)
[2019-12-28] MEDS: Aspirin 81 mg Enteric Coated Tablet PO SCH (08:53)
[2019-12-28] MEDS: Senokot S 8.6-50 MG TAB PO SCH ×2 (08:53→20:42)
[2019-12-28] MEDS: Furosemide 40 MG TAB PO SCH (08:53)
[2019-12-28] MEDS: Amlodipine 10 MG TAB PO SCH (08:53)
[2019-12-28] MEDS: Carvedilol 6.25 MG TAB PO SCH ×2 (08:53→20:41)
[2019-12-28] MEDS: Allopurinol 300 MG TAB PO SCH (08:53)
[2019-12-28] MEDS ORDERED: hydrALAZINE 10 MG TAB PO SCH (09:00)
--- NOTE | 2019-12-28 09:06 | PDOC.FM ---
- Subjective Subjective: Patient feeling well this AM but not sleeping well at night. - Objective Vital Signs & Weight: Vital Signs (12 hours) Temp Pulse Resp BP BP Pulse Ox 12/28/19 07:50 97.8 F 64 20 175/78 H 96 12/28/19 05:37 63 152/69 H 12/28/19 04:32 71 12/28/19 04:00 98.1 F 71 20 191/84 H 92 L 12/28/19 01:00 98 Weight Weight 119.295 kg I&O: 12/27/19 12/28/19 12/29/19 06:59 06:59 06:59 Intake Total 1215 1160 Output Total 1925 1425 Balance -710 -430 Result Diagrams: 12/28/19 09:21 12/28/19 09:21 Phys Exam - Physical Examination Constitutional: NAD Respiratory: no wheezing, no rales, no rhonchi Cardiovascular: RRR, no significant murmur, no rub Gastrointestinal: soft, non-tender, no distention, positive bowel sounds Dx/Plan - Plan Plan: Acute on chronic hypoxic respiratory failure, likely 2/2 pulmonary HTN and CHF vs COPD CXR: Cardiomegaly, probable bilateral pleural effusions., right lower lobe airspace opacity, shows pulmonary vessels larger than bronchioles BNP 219, Procal 0.04 ( do not need abx) 2LNC requirement at home, currently requiring 3L - CPAP overnight - wean O2 as tolerated - albuterol nebs q4hr prn, continue steroids - Records were requested, f/u today - lasix 40mg PO - ECHO with EF of 55-60% A fib with RVR - onset in AM of 12/25, presented with SOB - On Coreg 6.25 mg BID previously, increased to 12.5 BID - Dilt drip stopped with conversion to NSR - Consulted cardiology CKD Stage 3b Cr 2.09, GFR 31 - appears baseline DMII - SS - hypoglycemia protocol - ACHS glucose checks CAD Trop .036 -Troponins stable, continue home meds Hx Anemia Hgb 9.5 Likely 2/2 Anemia of Chronic Disease Anxiety/Depression - continue home meds Hypothyroidism - continue home meds HLD - continue home meds HTN - continue home meds - Start Hydralazine 10 mg PO, may also consider CCB TAWANA - continue CPAP at night GERD - continue home meds Gout - continue home meds Hypokalemia- resolved 3.8 on 12/24 Code: Full Prophylaxis: Heparin Fluids: SL Diet: HH Disposition: DC today pending cardiology recs PCP: Dr. Cowart (sp) at [place] Addendum - Attending - Attending Attestation Date/Time: 12/28/19 9226 I personally evaluated the patient and discussed the management with Dr. Conner. I agree with the History, Examination, Assessment and Plan documented above with any addition or exceptions noted below.
[2019-12-28 09:46] LABS: #Lymphocytes 1.2 thou/uL (1.20-3.40); #Monocytes 0.9 thou/uL (0.11-0.59); #Neutrophils 6.6 thou/uL (1.40-6.50); %Eosinophils 0.2 % (0.0-10.0); %Monocytes 10.3 % (0.0-10.0); %Neutrophils 75.4 % (42.0-75.0); Hemoglobin 10.1 g/dL (14.0-18.0); Mean Corpuscular HGB CONC 32.4 g/dL (32.0-36.0); Mean Corpuscular Hemoglobin 33.7 pg (27.0-31.0); Mean Platelet Volume 9.5 fL (7.4-10.4); Platelet Count 119 thou/uL (130-400); RBC Distribution Width 13.2 % (11.5-14.5); White Blood Cell (WBC) Count 8.8 thou/uL (4.8-10.8)
[2019-12-28 09:56] LABS: BUN (Urea Nitrogen) 45 mg/dL (8.4-25.7); Calc. Creatinine Clearance 52 mL/min (70-130); Estimated GFR-MDRD 35; Glucose 108 mg/dL (83-110)
[2019-12-28 10:05] LABS: Anion Gap 11 mmol/L (10-20); Carbon Dioxide 37 mmol/L (23-31); Chloride 102 mmol/L (98-107); Potassium 3.8 mmol/L (3.5-5.1); Sodium 146 mmol/L (136-145)
[2019-12-28] MEDS: hydrALAZINE 25 MG TAB PO SCH ×2 (16:04→20:42)
[2019-12-28] MEDS: HumaLOG 300 UNITS/3 ML VIAL SC PRN (17:54)
[2019-12-28] MEDS: Enoxaparin Sodium 120 MG/0.8 ML SYRINGE SC SCH (20:42)
[2019-12-28] MEDS: Tamsulosin HCl 0.4 MG CAP PO SCH (20:42)
[2019-12-28] MEDS: rOPINIRole HCl 2 MG TAB PO SCH (20:42)
[2019-12-28] MEDS ORDERED: Apixaban 2.5 MG TAB PO SCH (21:00)
[2019-12-29] MEDS: hydrALAZINE 10 MG TAB PO PRN ×2 (00:29→04:59)
[2019-12-29 04:36] LABS: Hemoglobin 9.7 g/dL (14.0-18.0); Platelet Count 122 thou/uL (130-400)
[2019-12-29] MEDS: Levothyroxine Sodium 112 MCG TAB PO SCH (04:59)
[2019-12-29] MEDS: Levothyroxine Sodium 25 MCG TAB PO SCH (04:59)
[2019-12-29] MEDS: Mometasone 200 MCG/Formoterol 5 MCG 120 PUFF INHALER INH SCH (07:20)
[2019-12-29] MEDS ORDERED: NIFEdipine XL 60 MG TAB PO SCH (09:00)
--- NOTE | 2019-12-29 09:03 | PDOC.FM ---
- Subjective Subjective: Patient feeling well this am. He feels back to his baseline. - Objective Vital Signs & Weight: Vital Signs (12 hours) Temp Pulse Resp BP BP Pulse Ox 12/29/19 04:59 68 12/29/19 04:00 98.5 F 68 20 189/81 H 97 12/29/19 00:29 75 212/88 H 12/28/19 23:59 75 209/92 H Weight Weight 119.431 kg I&O: 12/28/19 12/29/19 12/30/19 06:59 06:59 06:59 Intake Total 1160 1200 Output Total 1425 1450 Balance -265 -250 Result Diagrams: 12/29/19 04:24 12/28/19 09:21 Phys Exam - Physical Examination Constitutional: NAD Respiratory: no wheezing, no rales, no rhonchi Cardiovascular: RRR, no significant murmur, no rub Gastrointestinal: soft, non-tender, no distention Dx/Plan - Plan Plan: Acute on chronic hypoxic respiratory failure, likely 2/2 pulmonary HTN and CHF vs COPD CXR: Cardiomegaly, probable bilateral pleural effusions., right lower lobe airspace opacity, shows pulmonary vessels larger than bronchioles BNP 219, Procal 0.04 ( do not need abx) 2LNC requirement at home, currently requiring 3L - CPAP overnight - wean O2 as tolerated - albuterol nebs q4hr prn, continue steroids - Records were requested, f/u today - lasix 40mg PO - ECHO with EF of 55-60% A fib with RVR - onset in AM of 12/25, presented with SOB - On Coreg 6.25 mg BID previously, increased to 12.5 BID - Dilt drip stopped with conversion to NSR - Consulted cardiology CKD Stage 3b Cr 2.09, GFR 31 - appears baseline DMII - SS - hypoglycemia protocol - ACHS glucose checks CAD Trop .036 -Troponins stable, continue home meds Hx Anemia Hgb 9.5 Likely 2/2 Anemia of Chronic Disease Anxiety/Depression - continue home meds Hypothyroidism - continue home meds HLD - continue home meds HTN - continue home meds - Start Hydralazine 10 mg PO - Switched amlodipine to procardia 60 mg TAWANA - continue CPAP at night GERD - continue home meds Gout - continue home meds Hypokalemia- resolved 3.8 on 12/24 Code: Full Prophylaxis: Heparin Fluids: SL Diet: HH Disposition: DC today pending HTN PCP: Dr. Cowart (sp) at [place] Addendum - Attending - Attending Attestation Date/Time: 12/29/19 0914 I personally evaluated the patient and discussed the management with Dr. Conner. I agree with the History, Examination, Assessment and Plan documented above with any addition or exceptions noted below. BP meds adjusted. Hopeful that we will obtain better BP control today and hopefully home if that is the case.
[2019-12-29] MEDS: hydrALAZINE 25 MG TAB PO SCH (09:38)
[2019-12-29] MEDS: Carvedilol 6.25 MG TAB PO SCH (09:38)
[2019-12-29] MEDS: Losartan 25 MG TAB PO SCH (09:39)
[2019-12-29] MEDS: Cyclobenzaprine 10 MG TAB PO SCH (09:39)
[2019-12-29] MEDS: predniSONE 20 MG TAB PO SCH (09:39)
[2019-12-29] MEDS: Aspirin 81 mg Enteric Coated Tablet PO SCH (09:39)
[2019-12-29] MEDS: Enoxaparin Sodium 120 MG/0.8 ML SYRINGE SC SCH (09:39)
[2019-12-29] MEDS: Furosemide 40 MG TAB PO SCH (09:40)
[2019-12-29] MEDS: hydrOXYzine 25 MG TAB PO SCH (09:40)
[2019-12-29] MEDS: Allopurinol 300 MG TAB PO SCH (09:40)
[2019-12-29] MEDS: Acetaminophen 325 MG TAB PO SCH (09:40)
[2019-12-29] MEDS: Dronedarone HCl 400 MG TAB PO SCH ×2 (09:40→17:15)
[2019-12-29] MEDS: Senokot S 8.6-50 MG TAB PO SCH (09:41)
[2019-12-29] MEDS ORDERED: cloNIDine 0.1 MG TAB PO PRN (09:51)
[2019-12-29 12:25] LABS: BUN (Urea Nitrogen) 42 mg/dL (8.4-25.7); Calc. Creatinine Clearance 54 mL/min (70-130); Calcium 7.7 mg/dL (7.8-10.44); Estimated GFR-MDRD 37; Glucose 144 mg/dL (83-110)
[2019-12-29 12:34] LABS: Anion Gap 16 mmol/L (10-20); Carbon Dioxide 33 mmol/L (23-31); Chloride 101 mmol/L (98-107); Potassium 3.6 mmol/L (3.5-5.1); Sodium 146 mmol/L (136-145)
[2019-12-29] MEDS ORDERED: hydrALAZINE 25 MG TAB PO SCH (15:00)
[2019-12-29 15:45] VITALS: BP 166/72; TEMP 97.4
[2019-12-29] MEDS: HumaLOG 300 UNITS/3 ML VIAL SC PRN (17:15)
[2019-12-29] MEDS ORDERED: Acetaminophen 325 MG TAB PO SCH (17:15)
--- NOTE | 2019-12-30 11:51 | DIS ---
DATE OF ADMISSION: 12/26/2019 DATE OF DISCHARGE: 12/29/2019 RESIDENT: Ever Conner MD ADMITTING ATTENDING: Little Parks MD DISCHARGE ATTENDING: Jorge Sinha MD CONSULTS: Cardiology, Dr. Lopez, on 12/26/2019. Patient was then seen by Dr. Muir x1 day and Dr. Messer x2 days. PROCEDURES: Patient had an echocardiogram on 12/25/2019 with EF of 55% to 60% and moderate dilation of the left atrium with moderate mitral regurgitation and mild tricuspid regurgitation. PRIMARY DIAGNOSIS: Acute on chronic hypoxic respiratory failure likely due to pulmonary hypertension and heart failure. SECONDARY DIAGNOSES: 1. Chronic obstructive pulmonary disease. 2. Hypokalemia. 3. Chronic kidney disease, stage 3B. 4. Type 2 diabetes. 5. Coronary artery disease. 6. History of anemia. 7. Anxiety and depression. 8. Hypothyroidism. 9. Hyperlipidemia. 10. Hypertension. 11. Obstructive sleep apnea. 12. Gastroesophageal reflux disease. 13. Gout. DISCHARGE MEDICATIONS: 1. Synthroid 137 mcg p.o. daily. 2. Aspirin 81 mg p.o. daily. 3. Tylenol 325 mg p.o. daily. 4. Flomax 0.4 mg p.o. at bedtime. 5. Allopurinol 300 mg p.o. daily. 6. Protonix 40 mg p.o. b.i.d. 7. Lasix 40 mg p.o. daily. 8. Symbicort two puffs p.o. b.i.d. 9. Albuterol 2 puffs p.o. q.4 hours p.r.n. 10. Imdur 60 mg p.o. daily. 11. Atarax 50 mg p.o. b.i.d. 12. Ativan 1 mg p.o. q.4 hour p.r.n. 13. Senokot two tablets p.o. b.i.d. 14. Cozaar 100 mg p.o. daily. 15. Ropinirole 2 mg p.o. at bedtime. 16. Flexeril 10 mg p.o. b.i.d. 17. Coreg 12.5 mg p.o. b.i.d. 18. Multaq 400 mg p.o. b.i.d. 19. Prednisone 40 mg p.o. q.a.m. x2 days. 20. Hydralazine 50 mg p.o. t.i.d. 21. Nifedipine extended release 60 mg p.o. daily. Discontinue medications: 1. Coreg 6.25 mg b.i.d., was increased to 12.5 mg p.o. b.i.d. 2. Amlodipine 10 mg, discontinued, replaced with nifedipine. HISTORY OF PRESENT ILLNESS/HOSPITAL COURSE: Patient is an 84-year-old man, who presented to the hospital due to increasing shortness of breath. Patient is on baseline 2 L nasal cannula oxygen at home and had a recent stent after bypass one month ago. Patient reports that his shortness of breath improved with sitting up. Patient improved with diuresis. However, on day 2 of hospitalization, patient went into AFib with RVR. He was placed on diltiazem drip which was eventually weaned. He was then placed on Multaq by Dr. Muir. Patient remained in normal sinus rhythm. Patient then developed significant hypertension with systolics ranging from 170 to 190. At this time, hydralazine was started, amlodipine was discontinued, and nifedipine was started. Blood pressure was relatively well controlled, systolics in the 140s on the day of discharge. Patient was discharged on p.o. steroids for possible COPD exacerbation for two more days. DISPOSITION: Stable. DISCHARGE INSTRUCTIONS: 1. Location: Home. 2. Diet: Heart-healthy, consistent carb. 3. Activity: As tolerated. 4. Followup: Please follow up with Dr. Muir within the next week. Patient was began on Lovenox at start of atrial fibrillation. Lovenox was discontinued during the hospital stay and Dr. Messer requested follow up with Dr. Muir to determine if it should be resumed. Job ID: [id number]
== END 2019-12-29 18:50 | disposition home or self-care (01) | DRG 291 ==
LOC: ERS 16:27 → 2NO 20:04 → OBSVTOIN 12-26 15:10
PROVIDERS: ADMIT Family Medicine; ATTEND Family Medicine
DX: I13.0 Hypertensive heart and chronic kidney disease with heart failure and stage 1 through stage 4 chronic kidney disease, or unspecified chronic kidney disease (principal); J96.21 Acute and chronic respiratory failure with hypoxia; I50.33 Acute on chronic diastolic (congestive) heart failure; J44.1 Chronic obstructive pulmonary disease with (acute) exacerbation; I48.92 Unspecified atrial flutter; N17.9 Acute kidney failure, unspecified; Z20.828 Contact with and (suspected) exposure to other viral communicable diseases; I25.10 Atherosclerotic heart disease of native coronary artery without angina pectoris; N18.32 Chronic kidney disease, stage 3b; E78.5 Hyperlipidemia, unspecified; E03.9 Hypothyroidism, unspecified; E11.22 Type 2 diabetes mellitus with diabetic chronic kidney disease; M10.9 Gout, unspecified; E11.42 Type 2 diabetes mellitus with diabetic polyneuropathy; F41.9 Anxiety disorder, unspecified; F32.9 Major depressive disorder, single episode, unspecified; I27.20 Pulmonary hypertension, unspecified; E87.6 Hypokalemia; D63.1 Anemia in chronic kidney disease; K21.9 Gastro-esophageal reflux disease without esophagitis; E78.00 Pure hypercholesterolemia, unspecified; I48.91 Unspecified atrial fibrillation; G47.33 Obstructive sleep apnea (adult) (pediatric); Z99.81 Dependence on supplemental oxygen; Z88.5 Allergy status to narcotic agent; Z88.8 Allergy status to other drugs, medicaments and biological substances; Z79.82 Long term (current) use of aspirin; Z79.890 Hormone replacement therapy; Z79.51 Long term (current) use of inhaled steroids; Z79.899 Other long term (current) drug therapy; Z79.4 Long term (current) use of insulin
CPT/HCPCS: 36415; 36416; 71045; 80048; 80053; 82553; 83036; 83605; 83735; 83880; 84145; 84443; 84484; 85014; 85018; 85025; 85049; 87635; 93005; 93306; 94640; 94664; 96365; 96366; 96375; 96376; G0378; J1644; J1650; J1940; J1956; J2930; J3490; J7512; J7611; U0003